=== PATIENT | male | born 1940 | race Caucasian/White ===

== ENCOUNTER 2022-09-17 09:33 | Outpatient (CLI) | payer MEDICARE, OTHER, SELFPAY ==
[2022-09-17 21:20] LABS: Alanine Aminotransferase 22 U/L (6-50); Albumin Level 4.1 g/dL (3.5-5.1); Alkaline Phosphatase 70 U/L (38-126); Anion Gap 7 mmol/L (8-16); Aspartate Amino Transferase 27 U/L (17-59); Bilirubin,Total 0.7 mg/dL (0.2-1.3); Blood Urea Nitrogen 34 mg/dL (9-20); Carbon Dioxide 31 mmol/L (22-30); Chloride 105 mmol/L (98-107); Cholesterol 178 mg/dL (0-200); Estimated Glomerular Filt Rate > 60; Glucose 88 mg/dL (65-110); HDL Direct 40 mg/dL; Potassium 4.9 mmol/L (3.4-5.0); Sodium 143 mmol/L (137-145); Triglycerides 87 mg/dL (<150)
[2022-09-17 21:30] LABS: LDL Cholesterol Direct 102 mg/dL
== END 2022-09-17 09:34 | disposition home or self-care (01) ==
LOC: ANHGOSHLAB 09:37
PROVIDERS: PCP Family Medicine; Visit Provider Family Medicine
DX: Z13.220 Encounter for screening for lipoid disorders (principal); I10 Essential (primary) hypertension; Z12.11 Encounter for screening for malignant neoplasm of colon
CPT/HCPCS: 36415; 80053; 80061

== ENCOUNTER 2022-09-25 09:46 | Outpatient (NON) | payer MEDICARE, OTHER, SELFPAY ==
[2022-09-25 19:45] LABS: IFOB Positive Control Positive; Immunochemical Fecal Occult Bl Negative (N)
== END 2022-09-25 09:47 | disposition home or self-care (01) ==
LOC: ANHGOSHLAB 09:49
PROVIDERS: PCP Family Medicine; Visit Provider Family Medicine
DX: Z12.11 Encounter for screening for malignant neoplasm of colon (principal)
CPT/HCPCS: 82274

== ENCOUNTER 2022-10-05 18:47 | Outpatient (NON) | payer MEDICARE, OTHER, SELFPAY | END 2022-10-05 18:48 | disposition home or self-care (01) | LOC: ANHLAB 18:48 | PROVIDERS: PCP Family Medicine; Visit Provider Family Medicine | DX: R30.0 Dysuria (principal) | CPT/HCPCS: 87086 ==

== ENCOUNTER 2022-10-07 19:35 | Inpatient (IN) | payer MEDICARE, OTHER, SELFPAY ==
[2022-10-07] VITALS (11 sets, daily range): BP systolic 106–144; BP diastolic 67–87; PULSE 75–126; RESP 14–31; TEMP 37.3–39.1; O2SAT 90–100
--- NOTE | ~2022-10-07 | CT_ITS ---
EXAMINATION: CTA chest PE abdomen pel DATE: 10/07/2022 21:44 INDICATION: Fall, elevated d-dimer, abd pain. TECHNIQUE: Computed tomography angiography (CTA) of the chest was performed with 100 mL Omnipaque-350 intravenous contrast timed to evaluate the pulmonary arteries, followed by portal venous phase imagi ng of the abdomen and pelvis. Coronal maximum intensity projection 3D-reconstructions were created by the technologist. The dose-length product (DLP) was 861.79 mGy-cm. Automated exposure control and it erative reconstruction technique were employed. COMPARISON: X-ray chest, same date. FINDINGS: CHEST: Lung parenchyma and airways: Severe emphysematous change. Pleura: Unremarkable. Thoracic inlet, axillae and chest wall: Unremarkable. Thoracic aorta: Calcified and noncalcified plaque at the aortic arch. Mediastinum: Normal. Heart and pericardium: Normal. Coronary artery calcifications: Mild. Thoracic bones: No acute osseous finding. Pulmonary arteries: Study quality: Degraded by significant motion, such that subsegmental and non-occ lusive segmental emboli could be missed. No occlusive segmental or central pulmonary emboli detected. ABDOMEN/PELVIS: Liver: Normal. Biliary/Gallbladder: Gallbladder is normal. No bile duct dilation. Pancreas: No mass or duct dilation. Spleen: Normal. Adrenals:No mass. Kidneys: Multiple bilateral simple cysts. Multiple subcentimeter bilateral renal hypodensities that a re too small to characterize but also likely represent cysts. No suspicious mass, stone, or hydroneph rosis. GI tract: Distal esophageal and gastric wall edema. No small or large bowel dilation. Normal appendix . Diverticulosis without diverticulitis. Mesentery/Peritoneum: No ascites, mass, or free air. Retroperitoneum: No mass. Atherosclerotic abdominal aortic and/or arterial calcifications. Pelvis: Massive prostatomegaly, with significant projection of prostate tissue into the bladder lumen . Marked bladder wall edema, with inflammatory changes of multiple diverticula near the bladder dome and mucosal hyperemia. 3.3 cm fusiform infrarenal abdominal aortic aneurysm. Soft Tissues: Small, uncomplicated appearing fat-containing umbilical and bilateral inguinal hernias. Abdominopelvic bones: No acute osseous finding. IMPRESSION: 1. Exam limited by motion artifact such that nonocclusive segmental and subsegmental atelectatic be m issed. No central embolus or occlusive segmental embolus detected. 2. Marked urinary bladder wall edema and inflammatory change, correlate with urinalysis. 3. Mild esophagitis/gastritis. 4. Otherwise, acute process detected in the chest, abdomen, or pelvis. 5. 3.3 cm fusiform infrarenal abdominal aneurysm, recommend screening with ultrasound of the aorta in 3 years. 6. Massive prostatomegaly. 7. Emphysematous change. Reviewed, dictated and finalized at location K. T SUPERVISOR IMPRESSION: 1. Exam limited by motion artifact such that nonocclusive segmental and subsegm ental atelectatic be missed. No central embolus or occlusive segmental embolus detected. 2. Marked urinary bladder wall edema and inflammatory change, correlate with ur inalysis. 3. Mild esophagitis/gastritis. 4. Otherwise, acute process detected in the chest, abdomen, or pelvis. 5. 3.3 cm fusiform infrarenal abdominal aneurysm, recommend screening with ultr asound of the aorta in 3 years. 6. Massive prostatomegaly. 7. Emphysematous change.
--- NOTE | ~2022-10-07 | CT_ITS ---
EXAMINATION: CT brain wo con DATE: 10/07/2022 21:40 INDICATION: fall . TECHNIQUE: Computed tomography (CT) of the head was performed without intravenous contrast. The mA wa s adjusted according to patient size. Iterative reconstruction technique was employed. The dose-lengt h product was 605.33 mGy-cm. COMPARISON: None. FINDINGS: No acute intracranial hemorrhage or extra-axial fluid collection. No hydrocephalus, mass, or herniation. No acute ischemic infarct. Unremarkable dural venous sinus attenuation. No acute osseous abnormality. The aerated spaces are clear. Moderate atrophy and mild chronic white matter change. Atherosclerotic intracranial calcification. Bi lateral lens replacements. IMPRESSION: No acute intracranial process. Reviewed, dictated and finalized at location K. R EXPERT
--- NOTE | ~2022-10-07 | XR_ITS ---
EXAMINATION: XR chest 1V portable Exam Date/Time: 10/07/2022 20:25 DIVIDEND CLERK HISTORY: ams. Comparison: None available. RESULT: Lines, tubes, and devices: None. Lungs and pleura: Senescent changes. Calcified pulmonary granulomas. Eventration of the right hemidi aphragm. Cardiomediastinal silhouette: Mild arch calcification. Other: No acute osseous or upper abdominal finding. Severe degenerative change in the right shoulder . IMPRESSION: No acute cardiopulmonary process. Reviewed, dictated and finalized at location K. DEND CLERK
--- NOTE | ~2022-10-07 | US_ITS ---
Duplex Sonography of the right extremity: Indication: Pain Findings: Sagittal and transverse B-mode images as well as color-flow imaging were performed on the r ight femoral and popliteal veins. B-mode examination was done without and with compression in the tr ansverse plane. There is good visualization of the common femoral, proximal profunda femoral, superf icial femoral, greater saphenous, and popliteal veins. Normal flow was seen on color-flow imaging. N ormal compressibility was demonstrated. Right posterior tibial and peroneal veins are also patent. Impression: No evidence of deep vein thrombosis involving the right lower extremity. Reviewed, dictated and finalized at location M. ATION OFFICER Impression: No evidence of deep vein thrombosis involving the right lower extremity.
--- NOTE | 2022-10-07 19:57 | ECG_ITS ---
Measurements Intervals [place] Rate: 104 P: 59 [place]: 155 QRS: -76 QRSD: 114 T: 22 QT: 319 QTc: 420 Interpretive Statements SINUS TACHYCARDIA MARKED LEFT AXIS DEVIATION [QRS AXIS < -30] INCOMPLETE RIGHT BUNDLE BRANCH BLOCK [90+ ms QRS DURATION, TERMINAL R IN V1/V2, 40+ ms S IN I/aVL/V4/V5/V6] ABNORMAL ECG NO PREVIOUS ECG AVAILABLE FOR COMPARISON Electronically Signed On 10-08-2022 10:07:53 DETECTIVE CAPTAIN by Lance Tovar M.D.
--- NOTE | 2022-10-07 20:11 | ED.GENADULT ---
HPI - General Adult General Chief complaint: Urogenital-Male Stated complaint: urinary problems Time Seen by Provider: 10/07/22 19:44 Source: family and RN notes reviewed History of Present Illness HPI narrative: Patient presents emergency department from home for UTI. Patient states he has not been feeling well for the past 1 week states he has been feeling generally weak and fatigued during that time he states that he had noted that he been having increased urination as well as pain with urination and had gone to see his PCP on Wednesday the he states that at that time the UA had been done in the office and he had been diagnosed with a urinary tract infection. He was started on Cipro which she has been taking states he has not been feeling any better. He denies any measured fevers or chills he denies any chest pain or shortness of breath denies any abdominal pain nausea vomiting does note pain in his right leg with pain in his right calf with swelling of the right leg he denies any known trauma or injury states that it has been painful to ambulate on the right leg but denies having any definitive weakness he does note falling at some point over the past several days but cannot give any more history to this Patient's family is present and assisted in giving history Related Data Allergies Allergy/AdvReac Type Severity Reaction Status Date / Time No Known Allergies Allergy Verified 10/07/22 19:53 Review of Systems Review of Systems: Gen.: Denies fevers or chills Eyes: Denies eye pain or visual change ENT: Denies congestion Respiratory: Denies shortness of breath or cough CV: Denies chest pain or palpitations GI: Denies abdominal pain nausea, emesis or diarrhea see HPI Musculoskeletal: Denies back pain reports right leg pain Neuro: Reports generalized weakness Skin: Denies rash Except as documented, all other systems reviewed and negative [facility] Past Medical History Medical History Immunization counseling Screening, lipid Family History Family History Sibling Hypertension Mother Family history of Alzheimer's disease Social History Social History Social History: Caffeine- coffee Smoking status: Never smoker Second hand tobacco smoke exposure: No Smoking end date: 08/16/04 Alcohol intake: former Substance use: never Substance use type: does not use Lack of Food: Never True Current Housing: I Have Housing Concerned About Future Housing: No Difficulty Paying Gas/Electric Bills: No Difficulty Paying for Meds: No Currently Unemployed: No Education: High School Diploma/GED Difficulty w/ Childcare or Family Care: No Exam Narrative: APPEARANCE: No acute distress, nontoxic, resting in bed EYES: EOMI, PERRL HEENT: Normocephalic, atraumatic, OMM RESPIRATORY: No respiratory distress Clear to auscultation bilaterally with no rhonchi wheezing or rales. CARDIOVASCULAR: Regular rate and rhythm without murmurs rubs or gallops. ABDOMINAL: Soft, nontender, nondistended, no rebound or guarding MUSCULOSKELETAl: Moves all extremities. No clubbing, cyanosis or edema. Right calf is tender to palpation and swollen there is no tenderness of the knee or ankle with full range of motion of both bilateral dorsalis pedis pulse 2+ neurovascular intact muscle strength 5 out of 5 in bilateral upper and lower extremities NEURO: Awake and alert x 3. Following commands, speech normal, no focal deficits cranial nerves II through XII grossly intact bilaterally SKIN:: Warm, dry. No rashes lesions or abrasions PSYCHIATRIC: Normal affect/mood, Course Course Emergency Course: Called and discussed with Dr. Bardales for hospitalist service presentation and work-up agrees with admission at this time we will switch patient to Rocephin Discussed with patient and f
[2022-10-07 20:31] LABS: Basophils Percent Auto 0.3 % (0.2-1.2); Eosinophils Percent Auto 0.1 % (0-4.4); Hematocrit 45.1 % (42.0-52.0); Hemoglobin 15.2 g/dL (14.0-18.0); Immature Granulocyte Absolute 0.09 K/mm3 (0.00-0.031); Immature Granulocyte Percent A 0.8 % (0-0.5); Lymphocytes Absolute Auto 1.02 K/mm3 (0.9-3.2); Mean Corpuscular HGB Conc 33.7 g/dl (32-36); Mean Corpuscular Volume 91.9 fl (80-100); Mean Platelet Volume 9.4 fl (7.4-10.4); Monocytes Absolute Auto 1.4 K/mm3 (0.1-0.6); Neutrophils Absolute Auto 8.8 K/mm3 (1.3-6.7); Neutrophils Percent Auto 77.8 % (45.5-73.1); Platelet Count Result 242 k/mm3 (150-375); Red Blood Count 4.91 M/mm3 (4.6-6.20); Red Cell Distribution Width 14.7 % (11.5-14.5); White Blood Count 11.3 K/mm3 (4.5-10.0)
[2022-10-07 20:44] LABS: Lipase 307 U/L (23-300)
[2022-10-07 20:44] LABS: INR 1.3; Prothrombin Time 15.7 Seconds (11.1-14.7)
[2022-10-07 20:45] LABS: Lactic Acid Reflex 1.4 mmol/L (0.7-2.0); Partial Thromboplastin Time 33.1 SECONDS (22.3-36.8)
[2022-10-07] MEDS: SODIUM CHLORIDE 0.9% IV 1,000 ML 999 ML IV CONT (20:49)
[2022-10-07 21:02] LABS: Alanine Aminotransferase 34 U/L (6-50); Albumin Level 4.3 g/dL (3.5-5.1); Alkaline Phosphatase 64 U/L (38-126); Anion Gap 7 mmol/L (8-16); Aspartate Amino Transferase 100 U/L (17-59); Bilirubin,Total 1.3 mg/dL (0.2-1.3); Blood Urea Nitrogen 35 mg/dL (9-20); Calcium 8.6 mg/dL (8.4-10.2); Carbon Dioxide 28 mmol/L (22-30); Chloride 103 mmol/L (98-107); Estimated CRCL calculation 45 ml/min; Estimated Glomerular Filt Rate > 60; Glucose 145 mg/dL (65-110); Magnesium 2.3 mg/dL (1.6-2.3); Potassium 4.3 mmol/L (3.4-5.0); Sodium 138 mmol/L (137-145)
[2022-10-07 21:04] LABS: Troponin I 0.023 ng/mL (0.000-0.034)
[2022-10-07 21:07] LABS: Influenza A QL RT-PCR Negative (Negative); Influenza B QL RT-PCR Negative (Negative); SARS-CoV-2 RNA PCR Negative
[2022-10-07 21:15] LABS: Creatine Kinase 3464 U/L (55-170)
[2022-10-07 22:08] LABS: Appearance Urine Slightly Cloudy (Clear); Bilirubin Urine Negative (Negative); Blood Urine 2+ (Negative); Color Urine Yellow (Yellow); Glucose Urine UA Negative (Negative); Ketones Urine Negative (Negative); Leukocyte Esterase Ur 1+ LEU/UL (Negative); Nitrate Urine Negative (Negative); Protein Urine 2+ mg/dL (Negative); Urobilinogen Urine 0.2 mg/dL (<2.0); pH Urine 5.5 (5.0-9.0)
[2022-10-07 22:16] LABS: Bacteria Urine Trace /hpf; Mucus Urine Rare /lpf; Squamous Epithelial Cell Urine Rare /hpf (Few); WBC Clumps Urine Present /HPF; WBC Urine >75 /hpf
[2022-10-07 22:18] LABS: Add Urine Microscopic? YES
--- NOTE | 2022-10-07 23:50 | PM.IMHP ---
H&P: HPI History of Present Illness Date/Time: 10/07/22 23:50 Chief Complaint: urinary frequency Narrative: this is an 82-year-old male with past medical history significant for hypertension, gout. Patient presented earlier to his primary care physician's office due to concerns and complaints of for dysuria with urgency pain or burning with urination, nocturia. Patient was given ciprofloxacin however returns today to the emergency room due to known relieve of symptoms is still having significant urinary urgency and frequency with nocturia generalized malaise, fevers, chills decreased oral intake. Preliminary workup was significant for CPK in the 3000 a urinalysis showed numerous WBCs present per high-power field. patient was ruled out for acute PE as well as acute DVT A CT of abdomen and pelvis was reported as: IMPRESSION: 1. Exam limited by motion artifact such that nonocclusive segmental and subsegmental atelectatic be missed. No central embolus or occlusive segmental embolus detected. 2. Marked urinary bladder wall edema and inflammatory change, correlate with urinalysis. 3. Mild esophagitis/gastritis. 4. Otherwise, acute process detected in the chest, abdomen, or pelvis. 5. 3.3 cm fusiform infrarenal abdominal aneurysm, recommend screening with ultrasound of the aorta in 3 years. 6. Massive prostatomegaly. 7. Emphysematous change. Review of Systems Review of Systems: generalized malaise, body aches and pains, chills, urgency, urinary frequency, nocturia. Constitutional: Constitutional: Reports chills, Reports fever(s) and Reports malaise Eyes: Eyes: Denies change in vision ENT: Denies dysphagia and Denies odynophagia Cardiovascular: Cardiovascular: Denies chest pain, Denies leg edema, Denies palpitations and Denies dyspnea Respiratory: Respiratory: Denies chest congestion, Denies cough, Denies excessive phlegm production and Denies dyspnea Gastrointestinal: Gastrointestinal: Reports abdominal pain ( Suprapubic tenderness), Denies dyspepsia, Denies heartburn, Denies diarrhea, Denies nausea and Denies vomiting Genitourinary: Genitourinary: Reports dysuria, Denies flank pain, Reports urinary frequency and Reports urinary urgency Musculoskeletal: Musculoskeletal: Denies back pain and Reports myalgias Integumentary/Breasts: Skin/Breast: Denies rash Neurologic: Denies focal weakness and Denies Sensory deficit (Neuro) Psychiatric: Psychiatric: Reports no additional psychiatric complaints and Reports as per HPI Endocrine: Endocrine: Denies cold intolerance, Denies flushing, Denies heat intolerance, Denies polyphagia, Denies polydipsia and Denies palpitations Hematologic/Lymphatic: Hematologic/Lymphatic: Reports no additional hematologic/lymphatic complaints and Reports as per HPI Allergic/Immunologic: Allergic/Immunologic: Reports no additional allergic/immunologic complaints and Reports as per HPI PMFSH Past Medical History Medical History Immunization counseling Screening, lipid Family History Family History Sibling Hypertension Mother Family history of Alzheimer's disease Social History Social History Social History: Caffeine- coffee Smoking status: Former smoker Second hand tobacco smoke exposure: No Smoking end date: 08/16/04 Alcohol intake: former Substance use: never Substance use type: does not use Lack of Transportation: No Lack of Food: Never True Current Housing: I Have Housing Concerned About Future Housing: No Difficulty Paying Gas/Electric Bills: No Difficulty Paying for Meds: No Currently Unemployed: No Education: High School Diploma/GED Difficulty w/ Childcare or Family Care: No Spiritual care concerns: Yes Meds Home Medications and Allergies Home Medications Medication Instructions
[2022-10-08] VITALS (10 sets, daily range): BP systolic 105–180; BP diastolic 76–83; PULSE 104–109; RESP 14–24; TEMP 36.1–38.8; O2SAT 93–100; BMI 26.1
--- NOTE | 2022-10-08 00:23 | PC.NURSE ---
Pt repositioned, linens changed, and new depends applied. Pt resting comfortably.
--- NOTE | 2022-10-08 01:10 | PC.NURSE ---
report received from [facility]
[2022-10-08] MEDS: SODIUM CHLORIDE 0.9% IV 1,000 ML 125 ML IV CONT ×3 (02:03→21:19)
[2022-10-08] MEDS: lisinopriL 20 MG TABLET PO ×2 (02:29→21:08)
[2022-10-08] MEDS: amLODIPine BESYLATE 5 MG TABLET PO ×3 (02:29→21:08)
[2022-10-08] MEDS: ACETAMINOPHEN 325 MG TABLET 650 MG PO ×2 (02:29→21:17)
--- NOTE | 2022-10-08 05:56 | PC.NURSE ---
called MD Jasso r/t pt bp 168/82
[2022-10-08 06:41] LABS: Basophils Percent Auto 0.3 % (0.2-1.2); Eosinophils Absolute Auto 0.1 K/mm3 (0-0.3); Eosinophils Percent Auto 0.4 % (0-4.4); Hematocrit 43.3 % (42.0-52.0); Hemoglobin 14.4 g/dL (14.0-18.0); Immature Granulocyte Absolute 0.08 K/mm3 (0.00-0.031); Immature Granulocyte Percent A 0.7 % (0-0.5); Lymphocytes Absolute Auto 1.74 K/mm3 (0.9-3.2); Lymphocytes Percent Auto 14.2 % (18.3-44.2); Mean Corpuscular HGB Conc 33.3 g/dl (32-36); Mean Corpuscular Volume 93.1 fl (80-100); Monocytes Absolute Auto 1.9 K/mm3 (0.1-0.6); Monocytes Percent Auto 15.6 % (2.6-8.5); Neutrophils Absolute Auto 8.4 K/mm3 (1.3-6.7); Neutrophils Percent Auto 68.8 % (45.5-73.1); Platelet Count Result 223 k/mm3 (150-375); Red Blood Count 4.65 M/mm3 (4.6-6.20); Red Cell Distribution Width 14.7 % (11.5-14.5); White Blood Count 12.2 K/mm3 (4.5-10.0)
[2022-10-08 06:58] LABS: Alanine Aminotransferase 34 U/L (6-50); Albumin Level 3.9 g/dL (3.5-5.1); Alkaline Phosphatase 56 U/L (38-126); Anion Gap 6 mmol/L (8-16); Aspartate Amino Transferase 92 U/L (17-59); Bilirubin,Total 1.6 mg/dL (0.2-1.3); Blood Urea Nitrogen 25 mg/dL (9-20); Carbon Dioxide 28 mmol/L (22-30); Chloride 102 mmol/L (98-107); Estimated CRCL calculation 50 ml/min; Estimated Glomerular Filt Rate > 60; Glucose 107 mg/dL (65-110); Potassium 3.8 mmol/L (3.4-5.0); Sodium 136 mmol/L (137-145)
[2022-10-08 07:08] LABS: Creatine Kinase 2344 U/L (55-170)
--- NOTE | 2022-10-08 08:04 | PM.IMPN ---
Progress Note: A&P Assessment and Plan (1) Acute UTI: Code(s): N39.0 - Urinary tract infection, site not specified Status: Acute Assessment and Plan: Continue Rocephin, follow up urine culture (2) Rhabdomyolysis: Code(s): M62.82 - Rhabdomyolysis Status: Acute Assessment and Plan: Resolving, trending down Continue IV fluids (3) Gout, unspecified: Qualifiers: Chronicity: chronic Gout etiology: idiopathic Gout site: toe Laterality: right Presence of tophus: without tophus Qualified Code(s): M1A.0710 - Idiopathic chronic gout, right ankle and foot, without tophus (tophi) Code(s): M10.9 - Gout, unspecified Status: Acute Assessment and Plan: Stable, continue allopurinol (4) Essential (primary) hypertension: Code(s): I10 - Essential (primary) hypertension Status: Acute Assessment and Plan: Blood pressures reviewed today, continue lisinopril and amlodipine (5) Hyperbilirubinemia: Code(s): E80.6 - Other disorders of bilirubin metabolism Status: Acute Assessment and Plan: Slightly worsened today, suspect this is secondary to rhabdomyolysis, monitor (6) Abdominal aneurysm: Code(s): I71.40 - Abdominal aortic aneurysm, without rupture, unspecified Status: Acute Assessment and Plan: 3.3 cm fusiform infrarenal abdominal aneurysm, recheck with ultrasound in 3 years (7) Gastritis: Code(s): K29.70 - Gastritis, unspecified, without bleeding Status: Acute Assessment and Plan: Esophagitis/gastritis seen on CT scan, start H2 ilana Monitor symptoms Plan DVT prophylaxis with Lovenox GI prophylaxis not indicated Code status full code Subjective Date/time seen: 10/08/22 08:04 Interval history: No overnight events noted. No chest pain or shortness of breath. No nausea, vomiting or diarrhea. No fevers or chills. Denies dysuria and suprapubic tenderness at this time. Review of Systems Review of Systems: 12 point review of systems was assessed and was negative except as noted in the HPI Exam Narrative: General: No acute distress, alert and oriented per baseline HEENT: Atraumatic, normocephalic, mucous membranes moist CV: Regular rate and rhythm, S1, S2 Lungs: Clear to auscultation bilaterally, no rales or crackles noted, no wheezes, good air entry Abdomen: Soft, nontender, nondistended Extremities: Normal to inspection Skin: No rashes noted, no lesions or wounds seen Psych: Euthymic, normal affect Objective Data Vital Signs Vital Signs: Vital Signs - 24 hr 10/07/22 19:39 10/07/22 19:48 10/07/22 19:55 Temperature 102.3 F H 99.1 F Pulse Rate 110 H 106 H 107 H Respiratory Rate 20 26 H 22 H Blood Pressure 144/67 H 142/83 H Pulse Oximetry 100 100 90 Oxygen Delivery Room Air 10/07/22 20:00 10/07/22 20:01 10/07/22 20:15 Temperature Pulse Rate 104 H 104 H 102 H Respiratory Rate 22 H 25 H 26 H Blood Pressure 133/87 Pulse Oximetry 96 98 Oxygen Delivery 10/07/22 20:18 10/07/22 20:35 10/07/22 21:00 Temperature Pulse Rate 103 H 126 H 105 H Respiratory Rate 17 31 H 24 H Blood Pressure 128/85 114/86 134/83 Pulse Oximetry 97 98 Oxygen Delivery 10/07/22 22:00 10/07/22 23:00 10/08/22 00:00 Temperature Pulse Rate 75 106 H 109 H Respiratory Rate 14 14 14 Blood Pressure 119/83 106/70 105/83 Pulse Oximetry 95 97 93 Oxygen Delivery 10/08/22 01:10 10/08/22 01:57 10/08/22 01:44 Temperature 99.0 F Pulse Rate 109 H 109 H Respiratory Rate 14 18 Blood Pressure 125/79 136/78 Pulse Oximetry 100 95 Oxygen Delivery Room Air 10/08/22 02:29 10/08/22 03:40 10/08/22 06:02 Temperature 99.0 F 98.1 F 97.0 F L Pulse Rate 104 H Respiratory Rate 18 Blood Pressure 168/82 H Pulse Oximetry 96 Oxygen Delivery 10/08/22 06:02 10/08/22 06:06 Temperature 97.0 F L 97.0 F L Pu
[2022-10-08] MEDS: ENOXAPARIN 40 MG/0.4 ML SYRINGE SUB-Q (09:03)
[2022-10-08] MEDS: FAMOTIDINE 20 MG TABLET PO (21:08)
[2022-10-08] MEDS: allopurinoL 300 MG TABLET PO (21:08)
[2022-10-09 05:42] VITALS: BP 142/83; PULSE 99; RESP 20; TEMP 36.9; O2SAT 94
[2022-10-09] MEDS: SODIUM CHLORIDE 0.9% IV 1,000 ML 125 ML IV CONT ×3 (05:48→21:13)
[2022-10-09 06:12] LABS: Basophils Absolute Auto 0.1 K/mm3 (0.0-0.1); Basophils Percent Auto 0.5 % (0.2-1.2); Eosinophils Absolute Auto 0.1 K/mm3 (0-0.3); Hematocrit 33.2 % (42.0-52.0); Immature Granulocyte Absolute 0.06 K/mm3 (0.00-0.031); Immature Granulocyte Percent A 0.7 % (0-0.5); Lymphocytes Absolute Auto 1.21 K/mm3 (0.9-3.2); Lymphocytes Percent Auto 13.2 % (18.3-44.2); Mean Corpuscular HGB Conc 33.1 g/dl (32-36); Mean Corpuscular Hemoglobin 31.3 pg (26-34); Mean Corpuscular Volume 94.3 fl (80-100); Mean Platelet Volume 9.2 fl (7.4-10.4); Monocytes Absolute Auto 1.2 K/mm3 (0.1-0.6); Neutrophils Absolute Auto 6.6 K/mm3 (1.3-6.7); Neutrophils Percent Auto 71.6 % (45.5-73.1); Platelet Count Result 186 k/mm3 (150-375); Red Blood Count 3.52 M/mm3 (4.6-6.20); Red Cell Distribution Width 14.6 % (11.5-14.5); White Blood Count 9.2 K/mm3 (4.5-10.0)
[2022-10-09 06:26] LABS: Alanine Aminotransferase 26 U/L (6-50); Albumin Level 2.1 g/dL (3.5-5.1); Alkaline Phosphatase 33 U/L (38-126); Anion Gap 3 mmol/L (8-16); Aspartate Amino Transferase 56 U/L (17-59); Bilirubin,Total 1.1 mg/dL (0.2-1.3); Blood Urea Nitrogen 16 mg/dL (9-20); Calcium 5.1 mg/dL (8.4-10.2); Carbon Dioxide 19 mmol/L (22-30); Chloride 118 mmol/L (98-107); Estimated CRCL calculation 93 ml/min; Estimated Glomerular Filt Rate > 60; Glucose 74 mg/dL (65-110); Potassium 2.6 mmol/L (3.4-5.0); Sodium 140 mmol/L (137-145)
[2022-10-09] MEDS: FAMOTIDINE 20 MG TABLET PO ×2 (09:39→21:08)
[2022-10-09] MEDS: ENOXAPARIN 40 MG/0.4 ML SYRINGE SUB-Q (09:39)
[2022-10-09] MEDS: POTASSIUM CHLORIDE 20 MEQ TABLET 40 MEQ PO (09:40)
--- NOTE | 2022-10-09 10:17 | PM.IMPN ---
Progress Note: A&P Assessment and Plan (1) Acute UTI: Code(s): N39.0 - Urinary tract infection, site not specified Status: Acute Assessment and Plan: Urine culture negative, but leuk resolved on abx and patient had fevers/chills/malaise now resolved, cystitis noted on CT scan, no other source of infection noted, prostatitis? Appreciate urology consultation, they are concerned for possible prostatitis, recommending 6-8 weeks of oral Cipro or doxy, due to aneurysm, will choose doxycycline, also recommending PVRs and placing a Rodriguez if greater than 300 mL, started on tamsulosin and finasteride as well Update: PVRs consistently greater than 300 ml, rodriguez placed (2) Rhabdomyolysis: Code(s): M62.82 - Rhabdomyolysis Status: Acute Assessment and Plan: Resolving, trending down, repeat CK pending today Continue IV fluids (3) Gout, unspecified: Qualifiers: Chronicity: chronic Gout etiology: idiopathic Gout site: toe Laterality: right Presence of tophus: without tophus Qualified Code(s): M1A.0710 - Idiopathic chronic gout, right ankle and foot, without tophus (tophi) Code(s): M10.9 - Gout, unspecified Status: Acute Assessment and Plan: Appears worsened yesterday, given colchicine x 2, reassess symptoms of right knee gout flare 10/10: much improved, still with swelling and redness, will give colchicine 0.6 mg one more time (4) Essential (primary) hypertension: Code(s): I10 - Essential (primary) hypertension Status: Acute Assessment and Plan: Blood pressures reviewed today 10/10, continue lisinopril and amlodipine (5) Hyperbilirubinemia: Code(s): E80.6 - Other disorders of bilirubin metabolism Status: Acute Assessment and Plan: Slightly worsened today, suspect this is secondary to rhabdomyolysis, monitor 10/09: Resolved (6) Abdominal aneurysm: Code(s): I71.40 - Abdominal aortic aneurysm, without rupture, unspecified Status: Acute Assessment and Plan: 3.3 cm fusiform infrarenal abdominal aneurysm, recheck with ultrasound in 3 years (7) Gastritis: Code(s): K29.70 - Gastritis, unspecified, without bleeding Status: Acute Assessment and Plan: Esophagitis/gastritis seen on CT scan, start H2 ilana Monitor symptoms Plan DVT prophylaxis with Lovenox GI prophylaxis not indicated Code status full code Subjective Date/time seen: 10/09/22 10:17 Interval history: No overnight events noted. No chest pain or shortness of breath. No nausea, vomiting or diarrhea. No fevers or chills. Rodriguez in place, draining well. Review of Systems Review of Systems: 12 point review of systems was assessed and was negative except as noted in the HPI Exam Narrative: General: No acute distress, alert and oriented per baseline HEENT: Atraumatic, normocephalic, mucous membranes moist CV: Regular rate and rhythm, S1, S2 Lungs: Clear to auscultation bilaterally, no rales or crackles noted, no wheezes, good air entry Abdomen: Soft, nontender, nondistended Extremities: Normal to inspection Skin: No rashes noted, no lesions or wounds seen Psych: Euthymic, normal affect : rodriguez in place, draining dark yellow urine Objective Data Vital Signs Vital Signs: Vital Signs - 24 hr 10/08/22 14:00 10/08/22 21:17 10/08/22 22:00 Temperature 99.7 F H 101.2 F H 101.9 F H Pulse Rate 108 H 106 H Respiratory Rate 24 H 20 Blood Pressure 180/76 H 154/76 H Pulse Oximetry 95 96 Oxygen Delivery 10/09/22 05:42 10/09/22 09:30 Temperature 98.5 F Pulse Rate 99 Respiratory Rate 20 Blood Pressure 142/83 H Pulse Oximetry 94 Oxygen Delivery Room Air Intake/Output Intake/Output: Intake & Output 10/06/22 10/07/22 10/08/22 10/09/22 23:59 23:59 23:59 23:59 Intake Total 1000 2870 1556 Output Total 425 650 Balance 1000 0096 636 Meds/Results
[2022-10-09 10:38] LABS: Lipase 83 U/L (23-300)
[2022-10-09 10:45] LABS: Creatine Kinase 1181 U/L (55-170)
[2022-10-09 10:49] LABS: Basophils Absolute Auto 0.1 K/mm3 (0.0-0.1); Basophils Percent Auto 0.5 % (0.2-1.2); Eosinophils Absolute Auto 0.1 K/mm3 (0-0.3); Eosinophils Percent Auto 1.1 % (0-4.4); Hematocrit 39.9 % (42.0-52.0); Hemoglobin 13.2 g/dL (14.0-18.0); Immature Granulocyte Absolute 0.07 K/mm3 (0.00-0.031); Immature Granulocyte Percent A 0.7 % (0-0.5); Lymphocytes Absolute Auto 1.23 K/mm3 (0.9-3.2); Mean Corpuscular HGB Conc 33.1 g/dl (32-36); Mean Corpuscular Hemoglobin 30.8 pg (26-34); Mean Platelet Volume 8.5 fl (7.4-10.4); Monocytes Absolute Auto 1.2 K/mm3 (0.1-0.6); Monocytes Percent Auto 11.9 % (2.6-8.5); Neutrophils Absolute Auto 7.6 K/mm3 (1.3-6.7); Neutrophils Percent Auto 73.8 % (45.5-73.1); Platelet Count Result 206 k/mm3 (150-375); Red Blood Count 4.29 M/mm3 (4.6-6.20); Red Cell Distribution Width 14.9 % (11.5-14.5); White Blood Count 10.3 K/mm3 (4.5-10.0)
[2022-10-09 11:02] LABS: Alanine Aminotransferase 36 U/L (6-50); Albumin Level 3.2 g/dL (3.5-5.1); Alkaline Phosphatase 50 U/L (38-126); Anion Gap 2 mmol/L (8-16); Aspartate Amino Transferase 76 U/L (17-59); Bilirubin,Total 1.5 mg/dL (0.2-1.3); Blood Urea Nitrogen 20 mg/dL (9-20); Calcium 7.6 mg/dL (8.4-10.2); Carbon Dioxide 29 mmol/L (22-30); Chloride 108 mmol/L (98-107); Estimated CRCL calculation 61 ml/min; Estimated Glomerular Filt Rate > 60; Glucose 127 mg/dL (65-110); Potassium 3.9 mmol/L (3.4-5.0); Sodium 139 mmol/L (137-145)
[2022-10-09 14:00] VITALS: BP 139/72; PULSE 98; RESP 18; TEMP 37; O2SAT 97
[2022-10-09] MEDS: ACETAMINOPHEN 325 MG TABLET 650 MG PO ×2 (14:05→21:13)
--- NOTE | 2022-10-09 15:35 | WPDURCON ---
Assessment and Plan Assessment and plan (1) Prostatitis: Code(s): N41.9 - Inflammatory disease of prostate, unspecified Status: Acute Assessment and Plan: urine culture negative The patient exhibits symptoms of a UTI but has a severely enlarged prostate and a negative urine culture. He was on Cipro x 2 days prior to being admitted from the ER. I advised him that prostatitis can take 6-8 weeks of antibiotics to resolve. (2) BPH (benign prostatic hyperplasia): Code(s): N40.0 - Benign prostatic hyperplasia without lower urinary tract symptoms Status: Acute Assessment and Plan: Start Tamsulosin and Finasteride. Bladder scan post void to ensure proper emptying. If PVR >300cc, place 16fr coude catheter. The patient should f/u in the office in 3-4 weeks and continue oral Ciprofloxacin or Doxycycline for 21 days s/p discharge. Urology Consult Note HPI Date Seen: 10/09/22 Time Seen: 12:30 Requesting Physician: Padmini Jasso MD Primary Care Provider: Sujit Miranda DO Consult Narrative Reason for consult: BPH, Prostatitis Narrative: Sachin Mast is a 82 year old male who presented to the ER on 10/07/22 with worsening UTI symptoms despite treatment for a UTI from PCP with Cipro on 10/05/22. He states that after 2 days of Ciprofloxacin he was worsening with symptoms of frequency, urgency, dysuria, weakness and fatigue. His Urine culture from arrival in the ER was negative on 10/07/22. CT scan this visit shows bladder wall edema and massively enlarged prostate. He has never been treated for BPH or had a UTI/prostatitis. Creatinine 0.80, WBC 10.3 and he is afebrile. Review of Systems Constitutional: Constitutional: Reports fatigue and Reports lethargy Cardiovascular: Cardiovascular: Denies chest pain Respiratory: Respiratory: Reports no additional respiratory complaints Genitourinary: Genitourinary: Denies hematuria, Reports dysuria, Denies flank pain, Reports urinary frequency and Reports urinary urgency PMFSH Past Medical History Medical History Abdominal aneurysm Immunization counseling Screening, lipid Family History Family History Sibling Hypertension Mother Family history of Alzheimer's disease Social History Social History Social History: Caffeine- coffee Smoking status: Former smoker Second hand tobacco smoke exposure: No Smoking end date: 08/16/04 Alcohol intake: former Substance use: never Substance use type: does not use Lack of Transportation: No Lack of Food: Never True Current Housing: I Have Housing Concerned About Future Housing: No Difficulty Paying Gas/Electric Bills: No Difficulty Paying for Meds: No Currently Unemployed: No Education: High School Diploma/GED Difficulty w/ Childcare or Family Care: No Spiritual care concerns: Yes Meds Home Medications and Allergies Home Medications Medication Instructions Recorded Confirmed Type ciprofloxacin HCl 500 mg tablet 500 mg PO Q12H #14 tabs 10/05/22 10/08/22 Rx allopurinol 300 mg tablet 300 mg PO HS 10/08/22 10/08/22 History amlodipine 5 mg tablet 5 mg PO HS 10/08/22 10/08/22 History lisinopril 20 mg tablet 20 mg PO HS 10/08/22 10/08/22 History Allergies Allergy/AdvReac Type Severity Reaction Status Date / Time No Known Allergies Allergy Verified 10/07/22 19:53 Vital Signs Vital Signs - 24 hr 10/08/22 21:17 10/08/22 22:00 10/09/22 05:42 Temperature 101.2 F H 101.9 F H 98.5 F Pulse Rate 106 H 99 Respiratory Rate 20 20 Blood Pressure 154/76 H 142/83 H Pulse Oximetry 96 94 Oxygen Delivery 10/09/22 09:30 10/09/22 14:00 Temperature 98.6 F Pulse Rate 98 Respiratory Rate 18 Blood Pressure 139/72 Pulse Oximetry 97 Oxygen Delivery Room Air Exam
[2022-10-09] MEDS: COLCHICINE 0.6 MG TABLET 1.2 MG PO (18:41)
[2022-10-09] MEDS: COLCHICINE 0.6 MG TABLET PO (21:08)
[2022-10-09] MEDS: allopurinoL 300 MG TABLET PO (21:08)
[2022-10-09] MEDS: amLODIPine BESYLATE 5 MG TABLET PO (21:08)
[2022-10-09] MEDS: lisinopriL 20 MG TABLET PO (21:09)
[2022-10-09 21:55] VITALS: BP 140/82; PULSE 96; RESP 18; TEMP 37.4; O2SAT 96
[2022-10-10] MEDS: SODIUM CHLORIDE 0.9% IV 1,000 ML 125 ML IV CONT ×3 (05:18→20:32)
[2022-10-10 06:00] VITALS: BP 129/72; PULSE 102; RESP 16; TEMP 36.9; O2SAT 95
[2022-10-10 07:23] LABS: Basophils Absolute Auto 0.1 K/mm3 (0.0-0.1); Basophils Percent Auto 0.5 % (0.2-1.2); Eosinophils Absolute Auto 0.2 K/mm3 (0-0.3); Eosinophils Percent Auto 2.2 % (0-4.4); Hematocrit 40.1 % (42.0-52.0); Hemoglobin 13.1 g/dL (14.0-18.0); Immature Granulocyte Absolute 0.09 K/mm3 (0.00-0.031); Immature Granulocyte Percent A 0.8 % (0-0.5); Lymphocytes Absolute Auto 1.27 K/mm3 (0.9-3.2); Lymphocytes Percent Auto 11.5 % (18.3-44.2); Mean Corpuscular HGB Conc 32.7 g/dl (32-36); Mean Corpuscular Hemoglobin 30.5 pg (26-34); Mean Corpuscular Volume 93.5 fl (80-100); Mean Platelet Volume 9.2 fl (7.4-10.4); Monocytes Absolute Auto 1.1 K/mm3 (0.1-0.6); Monocytes Percent Auto 10.3 % (2.6-8.5); Neutrophils Absolute Auto 8.2 K/mm3 (1.3-6.7); Neutrophils Percent Auto 74.7 % (45.5-73.1); Platelet Count Result 232 k/mm3 (150-375); Red Blood Count 4.29 M/mm3 (4.6-6.20); Red Cell Distribution Width 14.9 % (11.5-14.5)
[2022-10-10 07:46] LABS: Alanine Aminotransferase 39 U/L (6-50); Albumin Level 3.2 g/dL (3.5-5.1); Alkaline Phosphatase 56 U/L (38-126); Anion Gap 4 mmol/L (8-16); Aspartate Amino Transferase 57 U/L (17-59); Bilirubin,Total 1.1 mg/dL (0.2-1.3); Blood Urea Nitrogen 14 mg/dL (9-20); Calcium 7.5 mg/dL (8.4-10.2); Carbon Dioxide 28 mmol/L (22-30); Chloride 108 mmol/L (98-107); Estimated CRCL calculation 61 ml/min; Estimated Glomerular Filt Rate > 60; Glucose 100 mg/dL (65-110); Potassium 3.9 mmol/L (3.4-5.0); Sodium 140 mmol/L (137-145)
[2022-10-10] MEDS: FINASTERIDE 5 MG TABLET PO (08:03)
[2022-10-10] MEDS: FAMOTIDINE 20 MG TABLET PO ×2 (08:03→20:31)
[2022-10-10] MEDS: ENOXAPARIN 40 MG/0.4 ML SYRINGE SUB-Q (08:03)
[2022-10-10] MEDS: TAMSULOSIN HCL 0.4 MG CAPSULE PO (08:03)
--- NOTE | 2022-10-10 11:33 | PM.DS ---
DS: Admitting Diagnosis Discharge Date 10/11/2022 Admitting Diagnosis Dysuria DS: Discharge Diagnosis Discharge Diagnosis (1) Acute UTI: Code(s): N39.0 - Urinary tract infection, site not specified Status: Acute Assessment and Plan: Urine culture negative, but leuk resolved on abx and patient had fevers/chills/malaise now resolved, cystitis noted on CT scan, no other source of infection noted, prostatitis? Appreciate urology consultation, they are concerned for possible prostatitis, recommending 6-8 weeks of oral Cipro or doxy, due to aneurysm, will choose doxycycline, also recommending PVRs and placing a Rodriguez if greater than 300 mL, started on tamsulosin and finasteride as well Update: PVRs consistently greater than 300 ml, rodriguez placed (2) Rhabdomyolysis: Code(s): M62.82 - Rhabdomyolysis Status: Acute Assessment and Plan: Resolving, trending down, repeat CK pending today Continue IV fluids (3) Gout, unspecified: Qualifiers: Gout site: toe Gout etiology: idiopathic Chronicity: chronic Laterality: right Presence of tophus: without tophus Qualified Code(s): M1A.0710 - Idiopathic chronic gout, right ankle and foot, without tophus (tophi) Code(s): M10.9 - Gout, unspecified Status: Acute Assessment and Plan: Appears worsened yesterday, given colchicine x 2, reassess symptoms of right knee gout flare 10/10: much improved, still with swelling and redness, will give colchicine 0.6 mg one more time (4) Essential (primary) hypertension: Code(s): I10 - Essential (primary) hypertension Status: Acute Assessment and Plan: Blood pressures reviewed today 10/10, continue lisinopril and amlodipine (5) Hyperbilirubinemia: Code(s): E80.6 - Other disorders of bilirubin metabolism Status: Acute Assessment and Plan: Slightly worsened today, suspect this is secondary to rhabdomyolysis, monitor 10/09: Resolved (6) Abdominal aneurysm: Code(s): I71.40 - Abdominal aortic aneurysm, without rupture, unspecified Status: Acute Assessment and Plan: 3.3 cm fusiform infrarenal abdominal aneurysm, recheck with ultrasound in 3 years (7) Gastritis: Code(s): K29.70 - Gastritis, unspecified, without bleeding Status: Acute Assessment and Plan: Esophagitis/gastritis seen on CT scan, start H2 ilana Monitor symptoms Plan DVT prophylaxis with Lovenox GI prophylaxis not indicated Code status full code DS: Summary Hospital Course Hospital Course: 82-year-old male with past medical history significant for hypertension and gout is presenting with dysuria. He was admitted is started antibiotics. Urine culture came back negative, however, he was thought to have prostatitis as his symptoms resolved with antibiotics and he was noted to have significant urinary retention. Urology was consulted and recommend placing a Rodriguez. The Rodriguez was to be maintained at discharge and he will have a 21 day course of antibiotics with doxycycline and close outpatient follow-up by Urology and primary care. See above for details. Time Spent with Patient Time attestation: Total time spent providing and/or coordinating discharge services: Exam Narrative: General: No acute distress, alert and oriented per baseline HEENT: Atraumatic, normocephalic, mucous membranes moist CV: Regular rate and rhythm, S1, S2 Lungs: Clear to auscultation bilaterally, no rales or crackles noted, no wheezes, good air entry Abdomen: Soft, nontender, nondistended Extremities: Normal to inspection Skin: No rashes noted, no lesions or wounds seen Psych: Euthymic, normal affect : rodriguez in place, draining dark yellow urine DS: Data Data Completed and Pending Labs on day of discharge: Labs from last 24 hours 10/10/22 10/10/22 06:40 06:40 WBC 11.0 H RBC 4.29 L Hgb 13.1 L Hct 40.1 L MCV 93
[2022-10-10 12:01] LABS: Creatine Kinase 835 U/L (55-170)
[2022-10-10] MEDS: DOXYCYCLINE HYCLATE 100 MG TABLET PO ×2 (13:26→20:31)
[2022-10-10 14:00] VITALS: BP 139/77; PULSE 67; RESP 24; TEMP 36.9; O2SAT 96
[2022-10-10] MEDS: COLCHICINE 0.6 MG TABLET PO (18:47)
[2022-10-10] MEDS: allopurinoL 300 MG TABLET PO (20:31)
[2022-10-10] MEDS: lisinopriL 20 MG TABLET PO (20:31)
[2022-10-10] MEDS: amLODIPine BESYLATE 5 MG TABLET PO (20:31)
[2022-10-10 22:00] VITALS: BP 125/77; PULSE 93; RESP 20; TEMP 37.3; O2SAT 95
[2022-10-11] MEDS: SODIUM CHLORIDE 0.9% IV 1,000 ML 125 ML IV CONT (04:54)
[2022-10-11 06:00] VITALS: BP 120/65; PULSE 91; RESP 20; TEMP 36.9; O2SAT 95
[2022-10-11 07:41] LABS: Basophils Absolute Auto 0.1 K/mm3 (0.0-0.1); Basophils Percent Auto 0.5 % (0.2-1.2); Eosinophils Absolute Auto 0.3 K/mm3 (0-0.3); Eosinophils Percent Auto 3.4 % (0-4.4); Hemoglobin 12.2 g/dL (14.0-18.0); Immature Granulocyte Absolute 0.06 K/mm3 (0.00-0.031); Immature Granulocyte Percent A 0.7 % (0-0.5); Lymphocytes Absolute Auto 1.33 K/mm3 (0.9-3.2); Lymphocytes Percent Auto 14.5 % (18.3-44.2); Mean Corpuscular Hemoglobin 30.7 pg (26-34); Mean Corpuscular Volume 93.2 fl (80-100); Monocytes Absolute Auto 0.9 K/mm3 (0.1-0.6); Monocytes Percent Auto 9.7 % (2.6-8.5); Neutrophils Absolute Auto 6.6 K/mm3 (1.3-6.7); Neutrophils Percent Auto 71.2 % (45.5-73.1); Platelet Count Result 218 k/mm3 (150-375); Red Blood Count 3.97 M/mm3 (4.6-6.20); Red Cell Distribution Width 14.4 % (11.5-14.5); White Blood Count 9.2 K/mm3 (4.5-10.0)
[2022-10-11 07:56] LABS: Alanine Aminotransferase 34 U/L (6-50); Albumin Level 2.9 g/dL (3.5-5.1); Alkaline Phosphatase 50 U/L (38-126); Anion Gap 0 mmol/L (8-16); Aspartate Amino Transferase 40 U/L (17-59); Blood Urea Nitrogen 12 mg/dL (9-20); Calcium 7.5 mg/dL (8.4-10.2); Carbon Dioxide 27 mmol/L (22-30); Chloride 106 mmol/L (98-107); Creatine Kinase 385 U/L (55-170); Estimated CRCL calculation 69 ml/min; Estimated Glomerular Filt Rate > 60; Glucose 95 mg/dL (65-110); Potassium 3.4 mmol/L (3.4-5.0); Sodium 133 mmol/L (137-145)
[2022-10-11] MEDS: FINASTERIDE 5 MG TABLET PO (08:04)
[2022-10-11] MEDS: TAMSULOSIN HCL 0.4 MG CAPSULE PO (08:04)
[2022-10-11] MEDS: ACETAMINOPHEN 325 MG TABLET 650 MG PO (08:04)
[2022-10-11] MEDS: FAMOTIDINE 20 MG TABLET PO (08:04)
[2022-10-11] MEDS: DOXYCYCLINE HYCLATE 100 MG TABLET PO (08:04)
[2022-10-11] MEDS: ENOXAPARIN 40 MG/0.4 ML SYRINGE SUB-Q (08:05)
--- NOTE | 2022-10-11 13:31 | WPDUROPN2 ---
Subjective Subjective Date/Time Seen: 10/11/22 13:31- was called ot see patient for urinary frequency and urgency, patient has a rodriguez in at time of my visit. he was seen on 10/09/22 by our service, has prostatitis on treatment. please see note from 10/09/22 for full urologic recommendations, no new recommendations regarding these symptoms given rodriguez is now in with plan to stay for several weeks that can be reassesed as outpatient Objective Data Vital Signs Vital Signs: Vital Signs - 24 hr 10/10/22 14:00 10/10/22 22:00 10/11/22 06:00 Temperature 36.9 C 37.3 C 36.9 C Pulse Rate 67 93 91 Respiratory Rate 24 H 20 20 Blood Pressure 139/77 125/77 120/65 Pulse Oximetry 96 95 95 Oxygen Delivery 10/11/22 10:02 10/11/22 08:00 10/11/22 11:33 Temperature Pulse Rate Respiratory Rate Blood Pressure Pulse Oximetry Oxygen Delivery Room Air Room Air Room Air Intake/Output Intake/Output: Intake & Output 10/08/22 10/09/22 10/10/22 10/11/22 23:59 23:59 23:59 23:59 Intake Total 2870 4296 5316 1680 Output Total 311 479 5302 1300 Balance 2441 3335 9311 380 Meds/Results Medications: Active Medications Generic Name Dose Route Start Last Admin Trade Name Freq PRN Reason Stop Dose Admin Acetaminophen 650 mg 10/08/22 02:10 10/11/22 08:04 Acetaminophen 325 Mg Tablet PO 650 mg Q6H PRN Administration Mild Pain (1-3) or Fever Allopurinol 300 mg 10/08/22 21:00 10/10/22 20:31 Allopurinol 300 Mg Tablet PO 300 mg HS PETEY Administration Amlodipine Besylate 5 mg 10/08/22 02:10 10/10/22 20:31 Amlodipine Besylate 5 Mg Tablet PO 5 mg HS PETEY Administration Doxycycline Hyclate 100 mg 10/10/22 11:20 10/11/22 08:04 Doxycycline Hyclate 100 Mg Tablet PO 100 mg Q12HR PETEY Administration Enoxaparin Sodium 40 mg 10/08/22 09:00 10/11/22 08:05 Enoxaparin 40 Mg/0.4 Ml Syringe SUB-Q 40 mg DAILY PETEY Administration Famotidine 20 mg 10/08/22 21:00 10/11/22 08:04 Famotidine 20 Mg Tablet PO 20 mg Q12HR PETEY Administration Finasteride 5 mg 10/10/22 09:00 10/11/22 08:04 Finasteride 5 Mg Tablet PO 5 mg QAM PETEY Administration Sodium Chloride 1,000 mls @ 125 mls/hr 10/07/22 23:45 10/11/22 04:54 Normal Saline Iv IV CONT 125 mls/hr .Q8H PETEY Administration Lisinopril 20 mg 10/08/22 02:10 10/10/22 20:31 Lisinopril 20 Mg Tablet PO 20 mg HS PETEY Administration Tamsulosin HCl 0.4 mg 10/10/22 09:00 10/11/22 08:04 Tamsulosin Hcl 0.4 Mg Capsule PO 0.4 mg QAM PETEY Administration Radiology Results: ITS Impressions Chest X-Ray 10/07/22 21:19 IMPRESSION: No acute cardiopulmonary process. Head CT 10/07/22 21:51 IMPRESSION: No acute intracranial process. Chest/Abdomen/Pelvis CTA 10/07/22 23:06 IMPRESSION: 1. Exam limited by motion artifact such that nonocclusive segmental and subsegmental atelectatic be missed. No central embolus or occlusive segmental embolus detected. 2. Marked urinary bladder wall edema and inflammatory change, correlate with urinalysis. 3. Mild esophagitis/gastritis. 4. Otherwise, acute process detected in the chest, abdomen, or pelvis. 5. 3.3 cm fusiform infrarenal abdominal aneurysm, recommend screening with ultrasound of the aorta in 3 years. 6. Massive prostatomegaly. 7. Emphysematous change. Venous Doppler Study 10/08/22 06:15 Impression: No evidence of deep vein thrombosis involving the right lower extremity. Labs Labs: Laboratory Results - last 24 hr 10/11/22 10/11/22 07:14 07:14 WBC 9.2 RBC 3.97 L Hgb 12.2 L Hct 37.0 L MCV 93.2 MCH 30.7 MCHC 33.0 RDW 14.4 Plt Count 218 MPV 9.0 Immature Gran % (Auto) 0.7 H Neut % (Auto) 71.2 Lymph % (Auto) 14.5 L Pitkin % (Auto) 9.7 H Eos % (Auto) 3.4 Baso % (Auto) 0.5 Lymph # (Auto) 1.33 [place]kin # (Auto) 0.9 H Eos # (Auto) 0.3 Baso # (Auto) 0.1 Abs Immat Gran (
[2022-10-11 14:00] VITALS: BP 122/74; PULSE 92; RESP 26; TEMP 36.5; O2SAT 92
== END 2022-10-11 19:05 | disposition home or self-care (01) | DRG 728 ==
LOC: ANHED 20:35 → ANH3MEDSUR 10-08 01:06
PROVIDERS: Admitting Provider Internal Medicine; Emergency Provider Emergency Medicine; PCP Family Medicine; Visit Provider Student in an Organized Health Care Education/Training Program
DX: N41.9 Inflammatory disease of prostate, unspecified (principal); M62.82 Rhabdomyolysis; N40.1 Benign prostatic hyperplasia with lower urinary tract symptoms; R33.8 Other retention of urine; R35.0 Frequency of micturition; R39.15 Urgency of urination; Z20.822 Contact with and (suspected) exposure to COVID-19; M10.9 Gout, unspecified; I10 Essential (primary) hypertension; E80.6 Other disorders of bilirubin metabolism; I71.40 Abdominal aortic aneurysm, without rupture, unspecified; K29.70 Gastritis, unspecified, without bleeding
CPT/HCPCS: 36415; 70450; 71045; 71275; 74177; 80053; 81001; 82550; 83605; 83690; 83735; 84484; 85025; 85380; 85610; 85730; 87040; 87086; 87636; 93005; 93971; 96361; 96365; 96372; 97161; 97166; 99285; A9270; G0378; J0696; J1650; J7030; Q9967

== ENCOUNTER 2022-10-15 11:37 | Emergency (ER) | payer MEDICARE, OTHER, SELFPAY ==
[2022-10-15] VITALS (19 sets, daily range): BP systolic 109–136; BP diastolic 62–98; PULSE 74–98; RESP 14–24; TEMP 36.8; O2SAT 96–100
--- NOTE | ~2022-10-15 | US_ITS ---
EXAMINATION: US venous doppler LE RT DATE: 10/15/2022 13:06 INDICATION: Right lower limb swelling. TECHNIQUE: Grayscale ultrasound images without and with compression and Doppler ultrasound images of the right lower extremity veins were obtained. COMPARISON: Ultrasound 10/07/2022 FINDINGS: The visualized portions of right common femoral vein, profunda (deep) femoral vein, femoral vein, pop liteal vein, peroneal veins, posterior tibial veins, and greater saphenous vein outflow are patent. S ubcutaneous edema is noted. IMPRESSION: 1. No deep venous thrombosis. Reviewed, dictated and finalized at location A. CAGER
--- NOTE | ~2022-10-15 | XR_ITS ---
EXAMINATION: XR chest 2V 10/15/2022 15:15 INDICATION: Weakness. Atrial fibrillation. PROCEDURE: AP and lateral views of the chest COMPARISON: 10/07/2022 FINDINGS: The lungs are clear. The cardiomediastinal silhouette is within normal limits. There are no pleural effusions. There is no pneumothorax suspected. The lungs are hyperinflated which is cons istent with, but not diagnostic of chronic obstructive pulmonary disease. IMPRESSION: 1: NO ACUTE CARDIOPULMONARY DISEASE. Reviewed, dictated and finalized at location L. ER PIT WORKER
--- NOTE | 2022-10-15 11:43 | ECG_ITS ---
Measurements Intervals [place] Rate: 95 P: 70 DE: 150 QRS: 51 QRSD: 81 T: 64 QT: 356 QTc: 448 Interpretive Statements SINUS RHYTHM NONSPECIFIC T-WAVE ABNORMALITY- INF/HIGH LAT LEADS BASELINE ARTIFACT- I, II, III, AVR BORDERLINE ECG COMPARED TO ECG 10/07/2022 20:05:34 SINUS RHYTHM NOW PRESENT T-WAVE ABNORMALITY NOW PRESENT Electronically Signed On 10-15-2022 11:53:46 [employer] by Óscar Arguello D.O.
--- NOTE | 2022-10-15 12:05 | ED.GENADULT ---
HPI - General Adult General Chief complaint: Recheck/Abnormal Lab/Rx Stated complaint: found to be in afib at doctor's office Time Seen by Provider: 10/15/22 12:03 Source: patient Mode of arrival: ambulatory Limitations: no limitations History of Present Illness HPI narrative: Patient is a 82 yo male with a history of UTI, gout, recent admission for UTI and rhabdomyolysis, presenting to the ER for evaluation of a fib with rvr after seen for hospital follow up today at PCP office. Patient states he feels well, only mild weakness since discharge from the hospital. Denies fever, chills, cough, chest pain, palpitations. Denies shortness of breath. He has been compliant with his antibiotic therapy. Denies any significant myalgias. Patient does report onset right lower extremity swelling that began approximately 1 week ago. He denies any redness, blistering, rash. He does report mild, aching pain in the right lower extremity. Reports left lower extremity is normal. Reviewed the patient's recent ER note, admission history and physical, progress notes, discharge summary and primary care physician note from today. Related Data Home Medications Medication Instructions Recorded Confirmed allopurinol 300 mg tablet 300 mg PO HS 10/08/22 10/15/22 amlodipine 5 mg tablet 5 mg PO HS 10/08/22 10/15/22 lisinopril 20 mg tablet 20 mg PO HS 10/08/22 10/15/22 acetaminophen 500 mg tablet 1,000 mg PO BID PRN 10/15/22 10/15/22 Allergies Allergy/AdvReac Type Severity Reaction Status Date / Time No Known Allergies Allergy Verified 10/15/22 11:07 Review of Systems Review of Systems: CONSTITUTIONAL: Denies fever, chills, or sweats. EYES: Denies visual changes, redness, or discharge. ENT: Denies rhinorrhea, congestion, sore throat, or otalgia. CARDIOVASCULAR: Denies chest pain, palpitations, does report right lower extremity swelling RESPIRATORY: Denies cough or dyspnea. GASTROINTESTINAL: Denies abdominal pain, nausea, vomiting, or diarrhea. GENITOURINARY: Denies dysuria or hematuria. SKIN: Denies rash or itching. MUSCULOSKELETAL: Denies back pain, joint pain, or myalgia. NEUROLOGIC: Denies headache, numbness, reports mild, generalized weakness PMFSH Past Medical History Medical History (Updated 10/15/22 @ 14:40 by Lazara Egan MD) Abdominal aneurysm BPH (benign prostatic hyperplasia) Essential (primary) hypertension Gastritis Gout Gout, unspecified Hyperbilirubinemia Immunization counseling Prostatitis Rhabdomyolysis Screening, lipid Weakness Family History Family History Sibling Hypertension Mother Family history of Alzheimer's disease Social History Social History Social History: Caffeine- coffee Smoking status: Former smoker Second hand tobacco smoke exposure: No Smoking end date: 08/16/04 Alcohol intake: former Substance use: never Substance use type: does not use Lack of Transportation: No Lack of Food: Never True Current Housing: I Have Housing Concerned About Future Housing: No Difficulty Paying Gas/Electric Bills: No Difficulty Paying for Meds: No Currently Unemployed: No Education: High School Diploma/GED Difficulty w/ Childcare or Family Care: No Spiritual care concerns: Yes Exam Narrative: GENERAL: Awake, alert, conversant HEAD: Normocephalic, atraumatic. EYES: PERRLA and EOMI. ENT: Nares clear, no rhinorrhea or epistaxis. Mucous membranes moist. NECK: Supple. CHEST: No respiratory distress, breathing even and non labored HEART: Regular rate, sinus rhythm ABDOMEN:Non distended, non tender EXTREMITIES: Normal range of motion. Pitting right lower extremity edema to the knee, 2+. No significant calf tenderness. No erythema, blisters, ecchymosis, rash, warmth. SKIN: Warm, dry, no rash. NEURO:No focal deficits. Alert and oriented x3 Course Vital Signs Vi
[2022-10-15 12:09] LABS: Basophils Absolute Auto 0.1 K/mm3 (0.0-0.1); Basophils Percent Auto 0.7 % (0.2-1.2); Eosinophils Absolute Auto 0.1 K/mm3 (0-0.3); Eosinophils Percent Auto 1.4 % (0-4.4); Hematocrit 41.5 % (42.0-52.0); Hemoglobin 13.4 g/dL (14.0-18.0); Immature Granulocyte Absolute 0.07 K/mm3 (0.00-0.031); Immature Granulocyte Percent A 0.8 % (0-0.5); Lymphocytes Absolute Auto 1.26 K/mm3 (0.9-3.2); Lymphocytes Percent Auto 13.8 % (18.3-44.2); Mean Corpuscular HGB Conc 32.3 g/dl (32-36); Mean Corpuscular Hemoglobin 30.5 pg (26-34); Mean Corpuscular Volume 94.3 fl (80-100); Mean Platelet Volume 8.8 fl (7.4-10.4); Monocytes Absolute Auto 0.7 K/mm3 (0.1-0.6); Neutrophils Absolute Auto 6.9 K/mm3 (1.3-6.7); Neutrophils Percent Auto 75.3 % (45.5-73.1); Platelet Count Result 374 k/mm3 (150-375); Red Cell Distribution Width 14.6 % (11.5-14.5); White Blood Count 9.2 K/mm3 (4.5-10.0)
[2022-10-15 12:20] LABS: Alanine Aminotransferase 44 U/L (6-50); Albumin Level 3.5 g/dL (3.5-5.1); Alkaline Phosphatase 67 U/L (38-126); Anion Gap 5 mmol/L (8-16); Aspartate Amino Transferase 33 U/L (17-59); Bilirubin,Total 0.6 mg/dL (0.2-1.3); Blood Urea Nitrogen 21 mg/dL (9-20); Calcium 8.5 mg/dL (8.4-10.2); Carbon Dioxide 33 mmol/L (22-30); Chloride 101 mmol/L (98-107); Estimated CRCL calculation 55 ml/min; Estimated Glomerular Filt Rate > 60; Glucose 122 mg/dL (65-110); Sodium 139 mmol/L (137-145)
[2022-10-15] MEDS: SODIUM CHLORIDE 0.9% IV 1,000 ML 999 ML IV CONT (12:56)
[2022-10-15 13:26] LABS: Creatine Kinase 94 U/L (55-170)
[2022-10-15 13:37] LABS: NT Pro B Type Natriuretic Pept 571 pg/mL (19.9-100)
[2022-10-15 14:10] LABS: Troponin I < 0.012 ng/mL (0.000-0.034)
[2022-10-15] MEDS: APIXABAN 5 MG TABLET PO (14:50)
== END 2022-10-15 15:41 | disposition home or self-care (01) ==
PROVIDERS: Emergency Medicine; Emergency Provider Emergency Medicine; PCP Family Medicine
DX: I48.0 Paroxysmal atrial fibrillation (principal); R60.0 Localized edema; I10 Essential (primary) hypertension; M10.9 Gout, unspecified; N40.0 Benign prostatic hyperplasia without lower urinary tract symptoms; E80.6 Other disorders of bilirubin metabolism; Z87.891 Personal history of nicotine dependence; Z87.440 Personal history of urinary (tract) infections; R94.31 Abnormal electrocardiogram [ECG] [EKG]
CPT/HCPCS: 36415; 71046; 80053; 82550; 83880; 84484; 85025; 93005; 93971; 96360; 99284; A9270; J7030

== ENCOUNTER 2022-11-20 12:54 | Outpatient (CLI) | payer MEDICARE, OTHER, SELFPAY ==
[2022-11-20 19:54] LABS: INR 2.3; Prothrombin Time 24.2 Seconds (11.1-14.7)
== END 2022-11-20 12:55 | disposition home or self-care (01) ==
LOC: ANHGOSHLAB 12:56
PROVIDERS: PCP Family Medicine; Visit Provider Internal Medicine Cardiovascular Disease
DX: I48.0 Paroxysmal atrial fibrillation (principal)
CPT/HCPCS: 36415; 85610

== ENCOUNTER 2022-11-26 07:19 | Outpatient (CLI) | payer MEDICARE, OTHER, SELFPAY ==
--- NOTE | ~2022-11-26 | NM_ITS ---
EXAMINATION: NM cari stress w perfusion DATE: 11/26/2022 11:19 INDICATION: Other forms of dyspnea. TECHNIQUE: Rest images were obtained following intravenous administration of 10.7 mCi Tc99m tetrofosm in (Myoview). The patient was infused intravenously with Lexiscan (regadenoson). Then, 32.0 mCi Tc99m tetrofosmin (Myoview) was administered intravenously, and supine and prone stress images were obtain ed. Data was reconstructed into short axis and horizontal and vertical long axis SPECT images. Gated SPECT images were also obtained. COMPARISON: None. FINDINGS: There is no definite reversible or fixed perfusion abnormality to suggest ischemia or infar ction. There is no segmental wall motion abnormality. Left ventricular ejection fraction measures 6 2%. IMPRESSION: 1. No definite ischemia or infarct. 2. Normal left ventricular ejection fraction measuring 62%. Reviewed, dictated and finalized at location A.
--- NOTE | 2022-11-26 07:44 | EST_ITS ---
Patient Info Name: Sachin Mast Age: 82 years : 1940 Gender: Male Ht: 68 in Wt: 170 lbs BSA: 1.94 m2 HR: 63 bpm BP: 169 / 83 mmHg Heart Rhythm: Sinus Rhythm Exam Date: 11/26/2022 10:14 AM Exam Location: [facility] Stress Patient Status: Outpatient Admit Date: 11/26/2022 Staff Ordering Physician: Óscar Arguello DO Attending Provider: Óscar Arguello DO Exercise Technologist: Suly Arthur CT Exercise Physician: Óscar Arguello DO Exam Type: CA stress cari w NM Study Info Indications R06.09 - Other forms of dyspnea I48.1 - Persistent atrial fibrillation A regadenoson stress test was performed. Summary 1. 1. Negative lexiscan stress test for ischemic ST changes by ECG criteria. 2. 2. Baseline hypertension. 3. 3. Nuclear scan to follow and will be reported separately. Please correlate with it. 4. 4. Patient informed of the above results. Protocol: Lexiscan Stress ECG Details Stage: REST Duration (min): 3 min : 58 sec HR (bpm): 64 SBP (mmHg): 163 DBP (mmHg): 92 Stage: REST Duration (min): 7 min : 43 sec HR (bpm): 70 SBP (mmHg): 163 DBP (mmHg): 92 Stage: STAGE 1 Duration (min): 1 min : 0 sec HR (bpm): 73 SBP (mmHg): 179 DBP (mmHg): 89 Stage: RECOVERY Duration (min): 1 min : 0 sec HR (bpm): 81 SBP (mmHg): 179 DBP (mmHg): 89 Stage: RECOVERY Duration (min): 2 min : 0 sec HR (bpm): 78 SBP (mmHg): 179 DBP (mmHg): 89 Stage: RECOVERY Duration (min): 2 min : 0 sec HR (bpm): 78 SBP (mmHg): 179 DBP (mmHg): 89 Rest HR: 70 bpm Peak HR: 81 bpm Rest Sys BP: 163 mmHg Peak Sys BP: 179 mmHg Max Pred HR: 139 bpm % Max Pred HR: 58 % Target HR: 118 bpm Max RPP: 14,499 bpm*mmHg Termination Reason: Completed protocol Cardiac Symptoms: Shortness of breath Total Time: 1 min : 0 sec Rest Duran BP: 92 mmHg Peak Duran BP: 89 mmHg Total Dose: 0.4 mg Resting ECG Sinus rhythm, RBBB. Stress ECG No ST changes. Arrhythmias None. Report Signatures
--- NOTE | 2022-11-26 07:44 | ECHO_ITS ---
Patient Info Name: Sachin Mast Age: 82 years : 1940 Gender: Male Ht: 68 in Wt: 175 lbs BSA: 1.97 m2 HR: 67 bpm BP: 147 / 80 mmHg Technical Quality: Good Exam Date: 11/26/2022 8:07 AM Exam Location: [facility] Pulmonary Patient Status: Outpatient Admit Date: 11/26/2022 Staff Ordering Physician: Óscar Arguello DO Forensic Audit Expert: Carina Sheldon RDCS Attending Provider: Óscar Arguello DO Referring Physician: Jos MOSQUEDA; Exam Type: CA echo doppler color flow Study Info Indications I48.0 - Paroxysmal atrial fibrillation Complete two-dimensional, color flow and Doppler transthoracic echocardiogram is performed. Summary 1. Complete two-dimensional, color flow and Doppler transthoracic echocardiogram is performed. 2. Left ventricular chamber dimension is normal. 3. Left ventricular systolic function is normal, estimated at 60-65%. 4. The left ventricular diastolic function is grade II diastolic dysfunction. 5. E/e' 10 is mildly elevated. 6. Global longitudinal strain is normal at -19.1%. 7. There is mild aortic valve sclerosis. 8. There is mild aortic valve regurgitation. 9. The mitral valve has mildly calcified annulus. 10. No pulmonary hypertension, estimated pulmonary arterial systolic pressure is 18 mmHg. Left Ventricle E/e' 10 is mildly elevated. Global longitudinal strain is normal at -19.1%. Left ventricular chamber dimension is normal. Left ventricular systolic function is normal, estimated at 60-65%. The left ventricular diastolic function is grade II diastolic dysfunction. Right Ventricle Right ventricular chamber dimension is normal. Right ventricular systolic function is normal. Left Atria Left atrial chamber dimension is normal. Right Atria Right atrial chamber dimension is normal. Aortic Valve The aortic valve is trileaflet. There is mild aortic valve sclerosis. There is no aortic valve stenosis. There is mild aortic valve regurgitation. Pulmonic Valve There is no pulmonic regurgitation. Mitral Valve The mitral valve has mildly calcified annulus. There is no mitral valve stenosis. There is no mitral valve regurgitation. Tricuspid Valve There is no tricuspid valve regurgitation. No pulmonary hypertension, estimated pulmonary arterial systolic pressure is 18 mmHg. Pericardium/Pleural There is no pericardial effusion. Inferior Vena Cava Normal inferior vena cava with >50% collapse upon inspiration consistent with normal right atrial pressure, 5 mmHg. Aorta The aortic root size at the sinus of Valsalva is normal. Left Ventricular Outflow Tract Name Value Normal LVOT 2D LVOT Diameter 2.0 cm LVOT Doppler LVOT Peak Gradient 3 mmHg LVOT Mean Gradient 2 mmHg LVOT VTI 22 cm LVOT VTI/AV VTI Ratio 0.7 LVOT Stroke Volume 72 ml LVOT CO 4.0 l/min LVOT CI 2.0 l/min/m2 Pulmonic Valve
== END 2022-11-26 07:20 | disposition home or self-care (01) ==
LOC: ANHCARD 07:21
PROVIDERS: PCP Family Medicine; Visit Provider Internal Medicine Cardiovascular Disease
DX: R06.09 Other forms of dyspnea (principal); I48.0 Paroxysmal atrial fibrillation; I10 Essential (primary) hypertension; I08.0 Rheumatic disorders of both mitral and aortic valves
CPT/HCPCS: 78452; 93017; 93306; A9502; J2785

== ENCOUNTER 2022-11-27 13:30 | Outpatient (RCR) | payer MEDICARE, OTHER, SELFPAY ==
--- NOTE | 2022-10-28 16:21 | PTOPEVAL1 ---
Assessment and note entered by Cammy Medel, PT, DPT Evaluation Information Assessment Status Evaluation Diagnosis weakness after hospitalization Onset 1 month Subjective Information Pt was recently hospitalized from 10/07/22 to with rhabdomyolysis. He states since this hospitalization he has been having knee pain. Pt states about a month ago he was able to walk 1 mile, ride a bike 4 times, and get up/down his basement stairs without an issues. Reported Pain Level Pain Score 0: Self Report Assessment PT Clinical Summary Sachin Chua presents to therapy today for his initial evaluation with a diagnosis of weakness. He reports R knee pain as well as weakness. Today he demonstrates notable weakness in his hips, ankles, and knees emmy. He demonstrates increased time to complete the TUG and 5xSTS and has a decreased gait speed during the 2 min walk test, all placing him at an increased risk for falls. Skilled physical therapy services are indicated to improve LE strength, improve functional balance and mobility, and to return to baseline function. Plan of Care Interventions Gait Training,Neuro Re-education,Patient/Caregiver Educati,Therapeutic Activities,Therapeutic Exercise PT Services Indicated Yes Treatment Frequency and 2x/wk for 4 wks Duration These treatments will address the objective and functional deficits as defined above. The patient will be advanced safely and appropriately in order for the patient to progress towards his/her prior level of function. Additional exercises will be introduced and as well as a comprehensive home exercise program upon discharge, if needed, ?to ensure carryover of functional gains achieved in the clinic. This treatment plan has been reviewed and agreement upon by the patient.
--- NOTE | 2022-11-27 14:07 | PTOPDC ---
Assessment and note entered by Cammy Medel, PT, DPT Evaluation Information Assessment Status Discharge Diagnosis weakness after hospitalization Onset 1 month Subjective Information Pt states his strength has improved, he has been about to go out an do some walking. Pt reports about 50-60% return to baseline line to prior to his hospitalization. Pts states he was able to walk outside in the yard today without a cane and was pulling weeds. Pt reports good complaince with his HEP. Reported Pain Level Pain Score 3,3: Self Report Assessment PT Clinical Summary Harshil presents to therapy today for his progress report following 8 visits of skilled therapy to treat weakness and deconditioning secondary to a prolonged hospital stay. Today he demonstrates a 13s TUG time and a Tinetti score of 24/28, both indicating he in not at a risk for falls. He improved his distance on the 2 min walk test from 220ft with a WW to 290ft without a device. He has met or progressed well towards all of his therapy goals and no longer requires skilled therapy. He will be discharged at this time. Plan of Care PT Services Indicated No
== END 2022-11-27 14:34 | disposition home or self-care (01) ==
LOC: ANHGOSHPT 13:30
PROVIDERS: PCP Family Medicine; Visit Provider Family Medicine
DX: M62.82 Rhabdomyolysis (principal); R53.1 Weakness
CPT/HCPCS: 97110; 97112; 97116; 97140; 97161; 97530

== ENCOUNTER 2022-11-30 10:35 | Outpatient (CLI) | payer MEDICARE, OTHER, SELFPAY ==
[2022-11-30 19:09] LABS: INR 4.5; Prothrombin Time 41.6 Seconds (11.1-14.7)
== END 2022-11-30 10:36 | disposition home or self-care (01) ==
LOC: ANHGOSHLAB 10:37
PROVIDERS: PCP Family Medicine; Visit Provider Internal Medicine Cardiovascular Disease
DX: I48.0 Paroxysmal atrial fibrillation (principal)
CPT/HCPCS: 36415; 85610

== ENCOUNTER 2023-01-12 09:50 | Outpatient (RCR) | payer MEDICARE, OTHER, SELFPAY ==
[2022-12-07 18:40] LABS: INR 1.8; Prothrombin Time 20.2 Seconds (11.1-14.7)
[2022-12-14 14:00] LABS: INR 1.7; Prothrombin Time 21.4 Seconds (11.1-14.7)
[2022-12-21 18:47] LABS: INR 1.6; Prothrombin Time 20.2 Seconds (11.1-14.7)
[2022-12-28 19:05] LABS: INR 1.8; Prothrombin Time 22.2 Seconds (11.1-14.7)
[2023-01-04 18:48] LABS: INR 1.9; Prothrombin Time 22.6 Seconds (11.1-14.7)
[2023-01-12 14:25] LABS: Prothrombin Time 23.9 Seconds (11.1-14.7)
== END 2023-03-07 23:59 | disposition home or self-care (01) ==
LOC: ANHGOSHLAB 09:50
PROVIDERS: PCP Family Medicine; Visit Provider Internal Medicine Cardiovascular Disease
DX: I48.0 Paroxysmal atrial fibrillation (principal)
CPT/HCPCS: 36415; 85610

== ENCOUNTER 2023-04-20 11:08 | Outpatient (RCR) | payer MEDICARE, OTHER, SELFPAY ==
[2023-02-01 14:30] LABS: INR 2.5; Prothrombin Time 28.8 Seconds (11.1-14.7)
[2023-02-22 12:46] LABS: Prothrombin Time 24.5 Seconds (11.1-14.7)
[2023-03-08 19:38] LABS: INR 2.2; Prothrombin Time 26.6 Seconds (11.1-14.7)
[2023-04-05 17:51] LABS: INR 2.8
[2023-04-20 18:59] LABS: INR 2.3; Prothrombin Time 26.8 Seconds (11.1-14.7)
== END 2023-05-02 23:59 | disposition home or self-care (01) ==
LOC: ANHGOSHLAB 11:08
PROVIDERS: PCP Family Medicine; Visit Provider Internal Medicine Cardiovascular Disease
DX: I48.0 Paroxysmal atrial fibrillation (principal)
CPT/HCPCS: 36415; 85610

== ENCOUNTER 2023-07-26 09:34 | Outpatient (RCR) | payer MEDICARE, OTHER, SELFPAY ==
[2023-06-07 18:40] LABS: INR 2.3; Prothrombin Time 27.3 Seconds (11.1-14.7)
[2023-07-05 19:00] LABS: INR 2.1; Prothrombin Time 25.2 Seconds (11.1-14.7)
[2023-07-26 18:45] LABS: INR 2.2; Prothrombin Time 26.5 Seconds (11.1-14.7)
== END 2023-08-15 23:59 | disposition home or self-care (01) ==
LOC: ANHGOSHLAB 09:34
PROVIDERS: PCP Family Medicine; Visit Provider Internal Medicine Cardiovascular Disease
DX: I48.0 Paroxysmal atrial fibrillation (principal)
CPT/HCPCS: 36415; 85610

== ENCOUNTER 2023-08-29 07:24 | Emergency (ER) | payer MEDICARE, OTHER, SELFPAY ==
--- NOTE | ~2023-08-29 | XR_ITS ---
EXAMINATION: XR chest 2V DATE: 08/29/2023 07:52 INDICATION: Weakness, atrial fibrillation TECHNIQUE: AP and lateral views of the chest are obtained. COMPARISON: 10/15/2022 FINDINGS: The lungs are free of acute opacities. No pleural effusion or pneumothorax. The cardiomedia stinal silhouette is normal. There is mild thoracic spondylosis. IMPRESSION: 1. No acute cardiopulmonary abnormality. Reviewed, dictated and finalized at location F. [employer] OFFICER AFLOAT
[2023-08-29 07:14] VITALS: BP 126/76; PULSE 114; RESP 25; TEMP 36.8; O2SAT 95
[2023-08-29 07:35] VITALS: BP 117/69; PULSE 114; RESP 19; O2SAT 94
--- NOTE | 2023-08-29 07:37 | ECG_ITS ---
Measurements Intervals [place] Rate: 112 P: 75 AK: 157 QRS: -75 QRSD: 124 T: 47 QT: 343 QTc: 470 Interpretive Statements SINUS TACHYCARDIA ATRIAL PREMATURE COMPLEXES LEFT AXIS DEVIATION RIGHT BUNDLE BRANCH BLOCK CONSIDER INFERIOR INFARCT, AGE INDETERMINATE BASELINE ARTIFACT- I, III, AVL ABNORMAL ECG COMPARED TO ECG 10/15/2022 11:48:18 SINUS TACHYCARDIA NOW PRESENT RIGHT BUNDLE-BRANCH BLOCK NOW PRESENT Electronically Signed On 08-29-2023 11:05:11 PROGRAM THERAPIST by Óscar Arguello D.O.
[2023-08-29 07:47] LABS: Hematocrit 44.4 % (42.0-52.0); Hemoglobin 14.3 g/dL (14.0-18.0); Mean Corpuscular HGB Conc 32.2 g/dl (32-36); Mean Corpuscular Hemoglobin 30.6 pg (26-34); Mean Corpuscular Volume 95.1 fl (80-100); Mean Platelet Volume 9.4 fl (7.4-10.4); Platelet Count Result 195 k/mm3 (150-375); Red Blood Count 4.67 M/mm3 (4.6-6.20); Red Cell Distribution Width 14.3 % (11.5-14.5); White Blood Count 14.7 K/mm3 (4.5-10.0)
[2023-08-29 07:57] LABS: Appearance Urine Cloudy (Clear); Bacteria Urine None Seen /hpf; Bilirubin Urine Negative (Negative); Blood Urine 3+ (Negative); Color Urine Yellow (Yellow); Glucose Urine UA Negative (Negative); Ketones Urine Negative (Negative); Leukocyte Esterase Ur 3+ LEU/UL (Negative); Nitrate Urine Negative (Negative); Non Pathogenic Casts 0-2; Protein Urine 1+ mg/dL (Negative); RBC Urine >100 /hpf (0-2); Specific Grav Ur 1.018 (1.001-1.035); Squamous Epithelial Cell Urine None seen /hpf (Few); Urobilinogen Urine 0.2 mg/dL (<2.0); WBC Urine >100 /hpf
[2023-08-29 08:05] LABS: Add Urine Microscopic? YES
[2023-08-29 08:12] LABS: Band Neutrophils Percent 11 % (0-6); Lymphocytes Absolute Manual 0.44 K/mm3 (1.1-4.5); Monocytes Absolute Manual 1.32 K/mm3 (0.1-0.90); Monocytes Percent Manual 9 % (3-9); Neutrophils Absolute Manual 12.93 K/mm3 (1.3-6.7); Neutrophils Percent Manual 77 % (46-73); Platelet Estimate Adequate (Adequate); Schistocytes None Seen (NORMAL); Total Cells Counted 100
[2023-08-29 08:14] VITALS: BP 101/71; PULSE 105; RESP 23; O2SAT 94
--- NOTE | 2023-08-29 08:21 | ED.GENADULT ---
HPI - General Adult General Chief complaint: Weakness Stated complaint: weakness, blood in urine, fall @ 0200 Time Seen by Provider: 08/29/23 07:46 History of Present Illness HPI narrative: 83-year-old male history of urinary retention presenting to the emergency department for evaluation after having a ground level fall last night. Patient states over last few days he has had increased difficulty urinating. Patient reports he was up every 30 minutes last night attempting to urinate. 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 Patient states his legs gave out last night causing him to fall. Patient denies any pain or injury from the fall patient denies striking head denies any loss of consciousness. Patient does have history of COPD and does report some cough but denies any shortness of breath denies any change in his chronic cough. Patient denies any associated abdominal pain. Related Data Home Medications Medication Instructions Recorded Confirmed lisinopril 20 mg tablet 20 mg PO HS 10/08/22 06/10/23 acetaminophen 500 mg tablet 500 mg PO Q6H PRN 11/17/22 06/10/23 (Tylenol Extra Strength) warfarin 5 mg tablet 3 mg PO DAILY 12/08/22 06/10/23 Allergies Allergy/AdvReac Type Severity Reaction Status Date / Time No Known Allergies Allergy Verified 08/29/23 07:36 Review of Systems Review of Systems: All systems reviewed & are unremarkable except as noted in HPI and below PMFSH Past Medical History Medical History (Updated 08/29/23 @ 10:11 by Ruben Bhatt MD) Abdominal aneurysm BPH (benign prostatic hyperplasia) Essential (primary) hypertension Gastritis Gout Gout, unspecified Hyperbilirubinemia Immunization counseling Left knee DJD Prostatitis Rhabdomyolysis Right knee DJD Screening, lipid Weakness Family History Family History Sibling Hypertension Mother Family history of Alzheimer's disease Social History Social History Social History: Caffeine- coffee Smoking status: Former smoker Second hand tobacco smoke exposure: No Smoking end date: 08/16/04 Alcohol intake: former Substance use: never Substance use type: does not use Lack of Transportation: No Lack of Food: Never True Current Housing: I Have Housing Concerned About Future Housing: No Difficulty Paying Gas/Electric Bills: No Difficulty Paying for Meds: No Currently Unemployed: No Education: High School Diploma/GED Difficulty w/ Childcare or Family Care: No Spiritual care concerns: Yes Exam Narrative: APPEARANCE: Well appearing, no pain, no distress, well-nourished. HEAD: normocephalic, atraumatic. EYES: PERRLA/EOMI, conjunctivae clear. NOSE: Normal no drainage EARS:TMS clear with good light reflex. THROAT: Pharynx clear, no exudate. NECK: Supple. No adenopathy, no masses. RESPIRATORY: Airway patent, respirations nonlabored. Clear to auscultation bilaterally, no rales, rhonchi, wheezing. CARDIOVASCULAR: Regular rate and rhythm without murmurs rubs or gallops. ABDOMINAL: Soft, nontender, nondistended, normal bowel sounds MUSCULOSKELETAL: Moves all extremities. Strength/ROM intact, No edema, No calf tenderness. NEURO: Alert. Cranial nerves II through XII intact. Grossly intact SKIN: Warm, dry. Normal Color Course Course Emergency Course: 83-year-old male with history of urinary retention presented to the ED for evaluation hematuria. Patient did have 300 mL of retained urine postvoid. Urine was concerning for urinary tract infection patient was started on Rocephin. Paulino catheter was placed. Patient is afebrile but does have a leukocytosis of 14.7. Patient states he feels as well enough to go home. Admission was discussed with the patient but he states he feels strong for discharge. Patient was able to ambulate in the emergency d
[2023-08-29 08:40] LABS: Influenza A QL RT-PCR Negative (Negative); Influenza B QL RT-PCR Negative (Negative); RSV RNA, RT-PCR Negative (Negative); SARS-CoV-2 RNA PCR Negative (Negative)
[2023-08-29 08:41] VITALS: BP 104/65; PULSE 103; RESP 20; O2SAT 96
[2023-08-29 09:16] VITALS: BP 109/62; PULSE 103; RESP 22; O2SAT 95
[2023-08-29 09:16] LABS: Alanine Aminotransferase 17 U/L (6-50); Albumin Level 3.8 g/dL (3.5-5.1); Alkaline Phosphatase 63 U/L (38-126); Anion Gap 9 mmol/L (8-16); Aspartate Amino Transferase 30 U/L (17-59); Bilirubin,Total 1.8 mg/dL (0.2-1.3); Blood Urea Nitrogen 31 mg/dL (9-20); Calcium 9.1 mg/dL (8.4-10.2); Carbon Dioxide 24 mmol/L (22-30); Chloride 109 mmol/L (98-107); Estimated CRCL calculation 49 ml/min; Estimated Glomerular Filt Rate > 60; Glucose 105 mg/dL (65-110); Potassium 3.9 mmol/L (3.4-5.0); Sodium 142 mmol/L (137-145)
[2023-08-29] MEDS: LIDOCAINE HCL 2% GEL UROJET 10 ML PKG (09:16)
== END 2023-08-29 10:44 | disposition home or self-care (01) ==
PROVIDERS: Emergency Provider Emergency Medicine; PCP Family Medicine
DX: N39.0 Urinary tract infection, site not specified (principal); N40.1 Benign prostatic hyperplasia with lower urinary tract symptoms; R33.8 Other retention of urine; Z20.822 Contact with and (suspected) exposure to COVID-19; J44.9 Chronic obstructive pulmonary disease, unspecified; I10 Essential (primary) hypertension; N41.9 Inflammatory disease of prostate, unspecified; M10.9 Gout, unspecified; M17.0 Bilateral primary osteoarthritis of knee; Z87.891 Personal history of nicotine dependence; Z79.01 Long term (current) use of anticoagulants
CPT/HCPCS: 36415; 71046; 80053; 81001; 85025; 87086; 87088; 87637; 93005; 96365; 99284; J0696

== ENCOUNTER 2023-08-30 17:38 | Emergency (ER) | payer MEDICARE, OTHER, SELFPAY ==
[2023-08-30] VITALS (13 sets, daily range): BP systolic 106–146; BP diastolic 57–101; PULSE 76–118; RESP 12–16; TEMP 36.6; O2SAT 95–100
[2023-08-30 22:02] LABS: Basophils Percent Auto 0.4 % (0.2-1.2); Eosinophils Absolute Auto 0.2 K/mm3 (0-0.3); Hematocrit 48.2 % (42.0-52.0); Hemoglobin 15.3 g/dL (14.0-18.0); Immature Granulocyte Absolute 0.04 K/mm3 (0.00-0.031); Immature Granulocyte Percent A 0.5 % (0-0.5); Lymphocytes Absolute Auto 1.04 K/mm3 (0.9-3.2); Lymphocytes Percent Auto 13.7 % (18.3-44.2); Mean Corpuscular HGB Conc 31.7 g/dl (32-36); Mean Corpuscular Hemoglobin 30.4 pg (26-34); Mean Corpuscular Volume 95.6 fl (80-100); Mean Platelet Volume 9.8 fl (7.4-10.4); Monocytes Percent Auto 13.1 % (2.6-8.5); Neutrophils Absolute Auto 5.3 K/mm3 (1.3-6.7); Neutrophils Percent Auto 69.3 % (45.5-73.1); Platelet Count Result 176 k/mm3 (150-375); Red Blood Count 5.04 M/mm3 (4.6-6.20); Red Cell Distribution Width 14.6 % (11.5-14.5); White Blood Count 7.6 K/mm3 (4.5-10.0)
[2023-08-30 22:12] LABS: Anion Gap 9 mmol/L (8-16); Blood Urea Nitrogen 40 mg/dL (9-20); Calcium 8.8 mg/dL (8.4-10.2); Carbon Dioxide 30 mmol/L (22-30); Chloride 102 mmol/L (98-107); Estimated Glomerular Filt Rate 42; Glucose 119 mg/dL (65-110); Sodium 141 mmol/L (137-145)
[2023-08-30 22:13] LABS: INR 2.2; Partial Thromboplastin Time 50.9 SECONDS (22.3-36.8); Prothrombin Time 25.8 Seconds (11.1-14.7)
--- NOTE | 2023-08-30 23:05 | ED.GENADULT ---
HPI - General Adult General Chief complaint: Urogenital-Male Stated complaint: BLOOD IN STEVENS CATH Time Seen by Provider: 08/30/23 20:27 History of Present Illness HPI narrative: This is an 83-year-old male presenting with hematuria. He was seen this morning for urinary tract infection and urinary retention. Is started on antibiotics and a Stevens catheter was placed. He had been doing well throughout the day and then had some hematuria in his back and then it stops draining. Patient is on Coumadin. patient does not recall any trauma to the Stevens. He does not have any significant abdominal he does have some penile irritation. Patient denies fever chills nausea vomiting diarrhea flank pain. Related Data Home Medications Medication Instructions Recorded Confirmed lisinopril 20 mg tablet 20 mg PO HS 10/08/22 06/10/23 acetaminophen 500 mg tablet 500 mg PO Q6H PRN 11/17/22 06/10/23 (Tylenol Extra Strength) warfarin 5 mg tablet 3 mg PO DAILY 12/08/22 06/10/23 Allergies Allergy/AdvReac Type Severity Reaction Status Date / Time No Known Allergies Allergy Verified 08/29/23 07:36 [facility] Past Medical History Medical History Abdominal aneurysm BPH (benign prostatic hyperplasia) Essential (primary) hypertension Gastritis Gout Gout, unspecified Hyperbilirubinemia Immunization counseling Left knee DJD Prostatitis Rhabdomyolysis Right knee DJD Screening, lipid Weakness Family History Family History Sibling Hypertension Mother Family history of Alzheimer's disease Social History Social History Social History: Caffeine- coffee Smoking status: Former smoker Second hand tobacco smoke exposure: No Smoking end date: 08/16/04 Alcohol intake: former Substance use: never Substance use type: does not use Lack of Transportation: No Lack of Food: Never True Current Housing: I Have Housing Concerned About Future Housing: No Difficulty Paying Gas/Electric Bills: No Difficulty Paying for Meds: No Currently Unemployed: No Education: High School Diploma/GED Difficulty w/ Childcare or Family Care: No Spiritual care concerns: Yes Exam Narrative: APPEARANCE: No apparent distress. Head: atraumatic. EYES: EOMI, NOSE: Atraumatic NECK: Trachea midline RESPIRATORY: No increased rate of breathing CARDIOVASCULAR: RRR, ABDOMINAL: Non-distended , soft nontender no guarding rebound no palpable bladder genital exam: Stevens in place, normal external genitalia, Stevens bag has dark red blood. MUSCULOSKELETAl: No obvious deformities NEURO: Alert. Moving 4/4 extremities SKIN:: Warm, dry. Normal color PSYCHIATRIC: Normal affect Course Vital Signs Vital signs: Vital Signs Temperature 97.9 F 08/30/23 17:56 Pulse Rate 118 H 08/30/23 17:56 Respiratory Rate 12 08/30/23 17:56 Blood Pressure 106/57 L 08/30/23 17:56 Pulse Oximetry 95 08/30/23 17:56 Oxygen Delivery Room Air 08/30/23 17:56 Temperature 97.9 F 08/30/23 17:56 Pulse Rate 98 08/30/23 21:52 Respiratory Rate 16 08/30/23 21:52 Blood Pressure 132/85 08/30/23 21:52 Pulse Oximetry 100 08/30/23 21:57 Oxygen Delivery Room Air 08/30/23 17:56 Medical Decision Making [facility] Narrative Medical decision making narrative: -Course: 83-year-old male on Coumadin presenting with hematuria. point of care ultrasound showed a depressed bladder. We attempted to irrigate/flush his Stevens but were unsuccessful. Switch to a [address] catheter. 16 [place] was draining without difficulty but there was some leakage around the catheter. This is replaced with a 22 [place] with improvement. We irrigated his bladder and the fluid was crystal clear. Patient discharged with urology follow-up. -DDX includes but is not limited to: Hematuria, clot catheter, po
[2023-08-30] MEDS: LIDOCAINE HCL 2% GEL UROJET 10 ML PKG MUCOUS MEM (23:24)
[2023-08-30] MEDS: SODIUM CHLORIDE 0.9% IV 1,000 ML 999 ML IV CONT (23:58)
--- NOTE | 2023-08-31 00:23 | PC.NURSE ---
First 3 way catheter that was in place was an 18 Fr. Clear with irrigation but patient stated he felt the urge to urinate, and when he pushed the urine squirted out around the catheter. Dr. Smith made aware. [address] was changed to a 22 Fr and there is minimal urine/saline coming out around the tube. Patient requested a bigger rodriguez bag that he can carry opposed to the leg bag.
== END 2023-08-31 00:46 | disposition home or self-care (01) ==
PROVIDERS: Emergency Provider Emergency Medicine; PCP Family Medicine
DX: T83.098A Other mechanical complication of other urinary catheter, initial encounter (principal); I10 Essential (primary) hypertension; N40.0 Benign prostatic hyperplasia without lower urinary tract symptoms; M10.9 Gout, unspecified; M17.0 Bilateral primary osteoarthritis of knee; Z87.891 Personal history of nicotine dependence; Z79.01 Long term (current) use of anticoagulants; Y84.6 Urinary catheterization as the cause of abnormal reaction of the patient, or of later complication, without mention of misadventure at the time of the procedure
CPT/HCPCS: 36415; 51700; 80048; 85025; 85610; 85730; 87040; 96360; 99283; J7030

== ENCOUNTER 2023-08-31 11:46 | Emergency (ER) | payer MEDICARE, OTHER, SELFPAY ==
[2023-08-31 11:52] VITALS: BP 127/68; PULSE 99; RESP 20; TEMP 36.5; O2SAT 100
--- NOTE | 2023-08-31 15:17 | ED.GENADULT ---
HPI - General Adult General Chief complaint: Urogenital-Male Stated complaint: hematuria Time Seen by Provider: 08/31/23 14:21 History of Present Illness HPI narrative: 83-year-old male presenting to the emergency department for evaluation hematuria. Patient was seen in the emergency department 2 days ago and diagnosed with urinary tract infection and urinary retention. Patient was started on antibiotics and a Paulino catheter was placed. Patient returned to the emergency department last night complaining of hematuria. Patient had bladder irrigation and patient's urine cleared up. Patient was told to return to the emergency department if he had any worsening bleeding. When patient was seen in the emergency department on his 2nd visit it was described as gross hematuria. Today on evaluation the patient does have some blood-tinged urine with some small clots. Patient denies any current complaints. Patient states he is having some intermittent bladder spasm but patient states he is also having some leaking around the Paulino catheter but patient does admit to pushing and try to forcefully expel the urine. Patient and family have been attempting to obtain follow-up with Could see case but due to the holiday this has been delayed. Related Data Home Medications Medication Instructions Recorded Confirmed lisinopril 20 mg tablet 20 mg PO HS 10/08/22 06/10/23 acetaminophen 500 mg tablet 500 mg PO Q6H PRN 11/17/22 06/10/23 (Tylenol Extra Strength) warfarin 5 mg tablet 3 mg PO DAILY 12/08/22 06/10/23 Allergies Allergy/AdvReac Type Severity Reaction Status Date / Time No Known Allergies Allergy Verified 08/29/23 07:36 Review of Systems Review of Systems: All systems reviewed & are unremarkable except as noted in HPI and below PMFSH Past Medical History Medical History Abdominal aneurysm BPH (benign prostatic hyperplasia) Essential (primary) hypertension Gastritis Gout Gout, unspecified Hyperbilirubinemia Immunization counseling Left knee DJD Prostatitis Rhabdomyolysis Right knee DJD Screening, lipid Weakness Family History Family History Sibling Hypertension Mother Family history of Alzheimer's disease Social History Social History Social History: Caffeine- coffee Smoking status: Former smoker Second hand tobacco smoke exposure: No Smoking end date: 08/16/04 Alcohol intake: former Substance use: never Substance use type: does not use Lack of Transportation: No Lack of Food: Never True Current Housing: I Have Housing Concerned About Future Housing: No Difficulty Paying Gas/Electric Bills: No Difficulty Paying for Meds: No Currently Unemployed: No Education: High School Diploma/GED Difficulty w/ Childcare or Family Care: No Spiritual care concerns: Yes Exam Narrative: APPEARANCE: Well appearing, no pain, no distress, well-nourished. HEAD: normocephalic, atraumatic. EYES: PERRLA/EOMI, conjunctivae clear. NOSE: Normal no drainage EARS:TMS clear with good light reflex. THROAT: Pharynx clear, no exudate. NECK: Supple. No adenopathy, no masses. RESPIRATORY: Airway patent, respirations nonlabored. Clear to auscultation bilaterally, no rales, rhonchi, wheezing. CARDIOVASCULAR: Regular rate and rhythm without murmurs rubs or gallops. ABDOMINAL: Soft, nontender, nondistended, normal bowel sounds MUSCULOSKELETAL: Moves all extremities. Strength/ROM intact, No edema, No calf tenderness. NEURO: Alert. Cranial nerves II through XII intact. Grossly intact SKIN: Warm, dry. Normal Color Course Course Emergency Course: 83-year-old male with urinary tract infection and an indwelling Paulino catheter presenting to the ED for evaluation of hematuria. Even with the Paulino catheter in place patient had proximal 100 mL o
[2023-08-31] MEDS: PHENAZOPYRIDINE HCL 100 MG TABLET 200 MG PO (16:42)
--- NOTE | 2023-08-31 16:52 | PC.NURSE ---
Upon discharge rodriguez draining pink tinged blood with no clots.
== END 2023-08-31 16:53 | disposition home or self-care (01) ==
PROVIDERS: Emergency Provider Emergency Medicine; PCP Family Medicine
DX: R31.9 Hematuria, unspecified (principal); I10 Essential (primary) hypertension; Z87.891 Personal history of nicotine dependence
CPT/HCPCS: 51700; 99283; A9270

== ENCOUNTER 2023-09-27 10:11 | Outpatient (CLI) | payer MEDICARE, OTHER, SELFPAY ==
[2023-09-27 21:19] LABS: Alanine Aminotransferase 18 U/L (6-50); Albumin Level 3.9 g/dL (3.5-5.1); Alkaline Phosphatase 54 U/L (38-126); Anion Gap 4 mmol/L (8-16); Aspartate Amino Transferase 29 U/L (17-59); Bilirubin,Total 0.9 mg/dL (0.2-1.3); Blood Urea Nitrogen 32 mg/dL (9-20); Calcium 9.2 mg/dL (8.4-10.2); Carbon Dioxide 33 mmol/L (22-30); Chloride 104 mmol/L (98-107); Estimated Glomerular Filt Rate > 60; Glucose 85 mg/dL (65-110); Potassium 4.8 mmol/L (3.4-5.0); Sodium 141 mmol/L (137-145)
== END 2023-09-27 10:12 | disposition home or self-care (01) ==
PROVIDERS: PCP Family Medicine; Visit Provider Family Medicine
DX: Z13.228 Encounter for screening for other metabolic disorders (principal)
CPT/HCPCS: 36415; 80053

== ENCOUNTER 2023-11-29 09:35 | Outpatient (RCR) | payer MEDICARE, OTHER, SELFPAY ==
[2023-09-27 19:24] LABS: INR 2.4; Prothrombin Time 28.2 Seconds (11.1-14.7)
[2023-10-25 19:04] LABS: INR 2.9; Prothrombin Time 32.1 Seconds (11.1-14.7)
[2023-11-08 13:58] LABS: INR 2.5; Prothrombin Time 28.7 Seconds (11.1-14.7)
[2023-11-29 11:29] LABS: INR 2.3; Prothrombin Time 27.1 Seconds (11.1-14.7)
== END 2023-12-26 23:59 | disposition home or self-care (01) ==
LOC: ANHGOSHLAB 09:35
PROVIDERS: PCP Family Medicine; Visit Provider Internal Medicine Cardiovascular Disease
DX: I48.0 Paroxysmal atrial fibrillation (principal)
CPT/HCPCS: 36415; 80053; 85610

== ENCOUNTER 2024-02-14 10:03 | Outpatient (RCR) | payer MEDICARE, OTHER, SELFPAY ==
[2023-12-27 14:33] LABS: INR 2.4; Prothrombin Time 28.5 Seconds (11.1-14.7)
[2024-01-24 15:12] LABS: INR 3.4; Prothrombin Time 34.9 Seconds (11.1-14.7)
[2024-02-01 13:01] LABS: INR 2.8; Prothrombin Time 30.4 Seconds (11.1-14.7)
[2024-02-14 19:40] LABS: INR 2.6; Prothrombin Time 28.2 Seconds (11.1-14.7)
[2024-02-28 15:07] LABS: INR 2.3; Prothrombin Time 25.5 Seconds (11.1-14.7)
== END 2024-03-26 23:59 | disposition home or self-care (01) ==
LOC: ANHGOSHLAB 10:03
PROVIDERS: PCP Family Medicine; Visit Provider Internal Medicine Cardiovascular Disease
DX: Z01.810 Encounter for preprocedural cardiovascular examination (principal); I48.0 Paroxysmal atrial fibrillation
CPT/HCPCS: 36415; 85610

== ENCOUNTER 2024-03-13 12:11 | Outpatient (CLI) | payer MEDICARE, OTHER, SELFPAY ==
--- NOTE | 2024-03-13 13:19 | ECHO_ITS ---
Patient Info Name: Sachin Mast Age: 83 years : 1940 Gender: Male Ht: 68 in Wt: 180 lbs BSA: 2.00 m2 HR: 67 bpm BP: 165 / 89 mmHg Heart Rhythm: Sinus Rhythm Technical Quality: Fair Exam Date: 03/13/2024 1:32 PM Exam Location: Echo Lab Patient Status: Outpatient Admit Date: 03/13/2024 Staff Ordering Physician: Sujit Miranda DO [employer] Driver: Zunilda Palumbo RDCS Attending Provider: Sujit Miranda DO Referring Physician: Ruben MALIK; Exam Type: CA echo doppler color flow Study Info Indications I10 - Essential (primary) hypertension Complete two-dimensional, color flow and Doppler transthoracic echocardiogram is performed. Summary 1. Complete two-dimensional, color flow and Doppler transthoracic echocardiogram is performed. 2. Left ventricular chamber dimension is normal. 3. Left ventricular systolic function is normal, estimated at 65-70%. 4. The left ventricular diastolic function is grade I diastolic dysfunction. 5. E/e' 12 is mildly elevated. 6. There is mild aortic valve sclerosis. 7. There is mild to moderate aortic valve regurgitation. 8. There is trace mitral valve regurgitation. 9. There is trace tricuspid valve regurgitation. 10. No pulmonary hypertension, estimated pulmonary arterial systolic pressure is 20 mmHg. Left Ventricle E/e' 12 is mildly elevated. Left ventricular chamber dimension is normal. Left ventricular systolic function is normal, estimated at 65-70%. The left ventricular diastolic function is grade I diastolic dysfunction. Right Ventricle Right ventricular systolic function is normal and with normal TAPSE 2.7 cm. Right ventricular chamber dimension is normal. Left Atria Left atrial chamber dimension is normal. Right Atria Right atrial chamber dimension is normal. Aortic Valve The aortic valve is trileaflet. There is mild aortic valve sclerosis. There is no aortic valve stenosis. There is mild to moderate aortic valve regurgitation. Pulmonic Valve There is no pulmonic regurgitation. Mitral Valve There is no mitral valve stenosis. There is trace mitral valve regurgitation. Tricuspid Valve There is trace tricuspid valve regurgitation. No pulmonary hypertension, estimated pulmonary arterial systolic pressure is 20 mmHg. Pericardium/Pleural There is no pericardial effusion. Inferior Vena Cava Normal inferior vena cava with >50% collapse upon inspiration consistent with normal right atrial pressure, 5 mmHg. Aorta The aortic root size at the sinus of Valsalva is normal. Left Ventricular Outflow Tract Name Value Normal LVOT 2D LVOT Diameter 2.1 cm LVOT Doppler LVOT Peak Gradient 4 mmHg LVOT Mean Gradient 2 mmHg LVOT VTI 23 cm LVOT VTI/AV VTI Ratio 0.7 LVOT Stroke Volume 80 ml LVOT CO 4.0 l/min LVOT CI 2.0 l/min/m2 Pulmonic Valve Name Value Normal
--- NOTE | 2024-03-13 16:36 | WPDPFTINT ---
PFT Procedure Performed PFT Procedure Performed Plethysmography (Lung Vol) Diffusing Cap (DLCO) Flow Vol Loop Spirometry w/o Bronchodil PFT Interpretation This is a pulmonary function test with spirometry, plethysmography and diffusing capacity. The test was performed and results interpreted in accordance with the 2019 and 2005 ATS/ERS Task Force guidelines respectively using the Global Lung Function Initiative-2012 reference equations. Patient demonstrated good effort and cooperation. Reproducibility criteria were met. The quality of the spirometry maneuver was Grade A. Findings: Spirometry: There is decreased maximal expiratory airflow at all lung volumes with a concave expiratory flow tracing. The contour the inspiratory flow tracing is normal. The FVC is 3.07 L, 86% predicted. The FEV1 is 1.25 L, 47% predicted. The FEV1: FVC ratio is 41%. Plethysmography: The total lung capacity is 7.52 L, 113% predicted. The functional residual capacity is 5.28 L, 146% predicted. The residual volume is 4.45 L, 171% predicted. The residual volume: Total lung capacity ratio is 59%. Diffusing capacity: The diffusing capacity unadjusted for hemoglobin and carboxyhemoglobin is 8.9, 40% predicted. The diffusing capacity adjusted for alveolar volume is 2.55, 69% predicted. Impression: There is a severe obstructive abnormality. The increase in residual volume to total lung volume ratio is consistent with hyperinflation from an obstructive abnormality. The diffusing capacity unadjusted for hemoglobin and carboxyhemoglobin is moderately decreased and normalizes when adjusted for alveolar volume. There are no prior studies for comparison
== END 2024-03-13 12:12 | disposition home or self-care (01) ==
LOC: ANHPFT 12:11
PROVIDERS: PCP Family Medicine; Visit Provider Family Medicine
DX: R06.09 Other forms of dyspnea (principal); J44.9 Chronic obstructive pulmonary disease, unspecified; I11.9 Hypertensive heart disease without heart failure; I35.8 Other nonrheumatic aortic valve disorders
CPT/HCPCS: 93306; 94375; 94726; 94729

== ENCOUNTER 2024-04-18 09:12 | Outpatient (RCR) | payer MEDICARE, OTHER, SELFPAY ==
[2024-03-27 15:01] LABS: INR 1.5; Prothrombin Time 18.5 Seconds (11.1-14.7)
[2024-04-03 14:27] LABS: INR 2.3; Prothrombin Time 25.4 Seconds (11.1-14.7)
[2024-04-18 15:00] LABS: INR 2.4; Prothrombin Time 26.1 Seconds (11.1-14.7)
== END 2024-06-25 23:59 | disposition home or self-care (01) ==
LOC: ANHGOSHLAB 09:12
PROVIDERS: PCP Family Medicine; Visit Provider Internal Medicine Cardiovascular Disease
DX: I48.0 Paroxysmal atrial fibrillation (principal)
CPT/HCPCS: 36415; 85610

== ENCOUNTER 2024-04-24 11:31 | Outpatient (CLI) | payer MEDICARE, OTHER, SELFPAY ==
[2024-04-24 14:25] LABS: Add Urine Microscopic? YES; Appearance Urine Clear (Clear); Bacteria Urine 4+ /hpf; Bilirubin Urine Negative (Negative); Blood Urine Non-Hemolyzed Trace (Negative); Color Urine Yellow (Yellow); Glucose Urine UA Negative (Negative); Ketones Urine Negative (Negative); Leukocyte Esterase Ur 2+ LEU/UL (Negative); Nitrate Urine Positive (Negative); Non Pathogenic Casts 0-2; Protein Urine Negative (Negative); RBC Urine 0-2 /hpf (0-2); Specific Grav Ur 1.013 (1.001-1.035); Squamous Epithelial Cell Urine None Seen /hpf (Few); Urobilinogen Urine 0.2 mg/dL (<2.0); WBC Urine 51-100 /hpf (0-3)
[2024-04-24 15:11] LABS: Anion Gap 9 mmol/L (4-12); Blood Urea Nitrogen 36 mg/dL (9-20); Calcium 9.3 mg/dL (8.4-10.2); Carbon Dioxide 30 mmol/L (22-30); Chloride 101 mmol/L (98-107); Estimated Glomerular Filt Rate 58; Glucose 77 mg/dL (65-110); Potassium 4.5 mmol/L (3.4-5.0); Sodium 140 mmol/L (137-145)
[2024-04-24 15:16] LABS: Basophils Absolute Auto 0.1 K/mm3 (0.0-0.1); Basophils Percent Auto 0.7 % (0.2-1.2); Eosinophils Absolute Auto 0.3 K/mm3 (0-0.3); Eosinophils Percent Auto 4.6 % (0-4.4); Hematocrit 45.6 % (42.0-52.0); Hemoglobin 14.6 g/dL (14.0-18.0); Immature Granulocyte Absolute 0.04 K/mm3 (0.00-0.031); Immature Granulocyte Percent A 0.6 % (0-0.5); Lymphocytes Absolute Auto 1.65 K/mm3 (0.9-3.2); Lymphocytes Percent Auto 23.5 % (18.3-44.2); Mean Corpuscular Hemoglobin 31.1 pg (26-34); Mean Platelet Volume 9.1 fl (7.4-10.4); Monocytes Absolute Auto 0.7 K/mm3 (0.1-0.6); Monocytes Percent Auto 9.8 % (2.6-8.5); Neutrophils Absolute Auto 4.3 K/mm3 (1.3-6.7); Neutrophils Percent Auto 60.8 % (45.5-73.1); Platelet Count Result 226 k/mm3 (150-375); Red Cell Distribution Width 14.4 % (11.5-14.5)
== END 2024-04-24 11:32 | disposition home or self-care (01) ==
LOC: ANHGOSHLAB 11:34
PROVIDERS: PCP Family Medicine; Visit Provider Nurse Practitioner Family
DX: M25.569 Pain in unspecified knee (principal); R53.1 Weakness; I48.0 Paroxysmal atrial fibrillation; I10 Essential (primary) hypertension; N39.0 Urinary tract infection, site not specified; R53.83 Other fatigue; M10.9 Gout, unspecified; R06.09 Other forms of dyspnea; Z13.220 Encounter for screening for lipoid disorders; N40.0 Benign prostatic hyperplasia without lower urinary tract symptoms; M62.82 Rhabdomyolysis
CPT/HCPCS: 36415; 80048; 81001; 85025; 87077; 87086; 87088; 87186

== ENCOUNTER 2024-04-25 09:57 | Outpatient (CLI) | payer MEDICARE, OTHER, SELFPAY ==
--- NOTE | 2024-04-25 10:11 | ECG_ITS ---
Test Date: 2024-04-25 10:18:19 Measurements Intervals [place] Rate: P: MI: QRS: QRSD: T: QT: QTc: Interpretive Statements SINUS RHYTHM RIGHT BUNDLE BRANCH BLOCK LEFT ANTERIOR FASCICULAR BLOCK ABNORMAL ECG Electronically Signed On 04-25-2024 15:18:12 CDT by Óscar Arguello D.O.
== END 2024-04-25 09:58 | disposition home or self-care (01) ==
PROVIDERS: PCP Family Medicine; Visit Provider Nurse Practitioner Family
DX: I48.0 Paroxysmal atrial fibrillation (principal); I10 Essential (primary) hypertension; R06.09 Other forms of dyspnea; I45.2 Bifascicular block; R94.31 Abnormal electrocardiogram [ECG] [EKG]
CPT/HCPCS: 93005

== ENCOUNTER 2024-05-08 09:31 | Outpatient (CLI) | payer MEDICARE, OTHER, SELFPAY ==
[2024-05-08 11:55] LABS: Add Urine Microscopic? YES; Appearance Urine Clear (Clear); Bacteria Urine 4+ /hpf; Bilirubin Urine Negative (Negative); Blood Urine Negative (Negative); Color Urine Yellow (Yellow); Glucose Urine UA Negative (Negative); Ketones Urine Negative (Negative); Leukocyte Esterase Ur 3+ LEU/UL (Negative); Nitrate Urine Positive (Negative); Non Pathogenic Casts 0-2; Protein Urine Negative (Negative); RBC Urine 0-2 /hpf (0-2); Specific Grav Ur 1.009 (1.001-1.035); Squamous Epithelial Cell Urine None Seen /hpf (Few); Urobilinogen Urine 0.2 mg/dL (<2.0); WBC Urine >100 /hpf (0-3)
[2024-05-08 12:01] LABS: Albumin Level 4.4 g/dL (3.5-5.1)
[2024-05-08 12:01] LABS: INR 2.3; Prothrombin Time 25.8 Seconds (11.1-14.7)
[2024-05-08 12:01] LABS: Urine Cotinine NEGATIVE
[2024-05-08 12:02] LABS: Partial Thromboplastin Time 37.9 Seconds (22.3-36.8)
[2024-05-08 12:34] LABS: Hemoglobin A1C 6.1 % (<5.7)
[2024-05-08 13:03] LABS: MRSA (PCR) NOT DETECTED (NOT DETECTE)
== END 2024-05-08 09:32 | disposition home or self-care (01) ==
PROVIDERS: PCP Family Medicine; Visit Provider Orthopaedic Surgery
DX: Z01.818 Encounter for other preprocedural examination (principal); M17.11 Unilateral primary osteoarthritis, right knee
CPT/HCPCS: 80307; 81001; 82040; 83036; 85610; 85730; 86850; 86900; 86901; 87077; 87086; 87088; 87186; 87641

== ENCOUNTER 2024-05-16 01:25 | Day surgery (SDC) | payer MEDICARE, OTHER, SELFPAY ==
[2024-05-08 10:12] VITALS: BP 123/69; PULSE 88; RESP 16; TEMP 36.8; O2SAT 94; BMI 28.3
--- NOTE | 2024-05-08 10:28 | PC.NURSE ---
Report to the Outpatient Waiting Room, entrance under the green pavilion located off [facility], at time __06:00am__on date _05/16/24 . Planned Procedure Time: __07:30am .? Time changes happen often and if your time is changed the preop area will call you the afternoon before. - You and your visitor will be asked to self-screen and do not enter if you have any COVID symptoms. Please call surgeon if you need to reschedule. - A mask is optional within the hospital at this time. Patients may have clear liquids (water, carbonated beverages, clear teas, apple juice) until 3 hours prior to surgery with a maximum of 20 ounces. - No food from midnight until time of surgery and no smoking (04:30am) Take only the following medications with a SIP of water on the morning of surgery: _Metoprolol, Tylenol if needed,Use inhaler as directed. DO NOT STOP ANY OF YOUR OTHER PRESCRIPTION MEDICATIONS PRIOR TO SURGERY EXCEPT THE FOLLOWING Medications to discontinue per physician Coumadin 5 days prior to surgery per Dr Treviño. Date to take last dose____05/10/24 Please no make-up, nail tanzanian, hairspray, perfume, deodorant, or body powder the day of surgery.? No jewelry (including any body piercings) or valuables the day of surgery, leave them at home.? Please take a shower or bath the night before, or the morning of, surgery with an antibacterial soap.? Wear comfortable, loose fitting clothing.? Dr Treviño scrub aleks [place]. - Jewelry must be removed prior to entering the operating room.? Rings and piercings that are not removed may be cut off. - The hospital will not accept responsibility for valuables.? - Please leave all valuables, including medications, at home the day of surgery. If you are going home after surgery, a licensed rolloff truck driver must drive you home.? - NO public transportation without another adult if you receive anesthesia. - We recommend that an adult stay with you for 24 hours following discharge. - We also recommend that you do not drive, make important decision, drink alcoholic beverages, or take any drugs that were not prescribed by your health care provider for at least 24 hours after your discharge time. Follow any additional instructions given to you from your surgeon. Telephone instructions given to _patient and and asked if any additional questions and then verbalized understanding. Patient advised to call surgeon office or pre surgery nurse liaison [phone] if any additional questions.
[2024-05-16] VITALS (13 sets, daily range): BP systolic 88–141; BP diastolic 55–75; PULSE 70–92; RESP 9–20; TEMP 36.3–36.8; O2SAT 90–98; BMI 28.0; BMI 30.6
--- NOTE | ~2024-05-16 | XR_ITS ---
EXAMINATION: [id number] DATE: 05/16/2024 11:02 INDICATION: Postoperative evaluation following right total knee arthroplasty. TECHNIQUE: Anteroposterior and lateral views of the right knee were obtained. COMPARISON: None. FINDINGS: Right total knee arthroplasty without patellar resurfacing appears well seated and in near anatomic a lignment. No fractures identified. Anterior skin gary and expected postoperative subcutaneous and intra-articular gas. IMPRESSION: 1. Right total knee arthroplasty, negative for postoperative purposes. Reviewed, dictated and finalized at location A.
[2024-05-16 06:46] LABS: INR 1.3; Prothrombin Time 16.7 Seconds (11.1-14.7)
[2024-05-16 06:47] LABS: Partial Thromboplastin Time 31.7 Seconds (22.3-36.8)
[2024-05-16] MEDS: LACTATED RINGERS 1,000 ML 30 ML IV CONT ×2 (06:54→10:26)
[2024-05-16] MEDS: ACETAMINOPHEN 500 MG TABLET 1000 MG PO (06:54)
[2024-05-16] MEDS: TRANEXAMIC ACID 1,000MG/ISO100 1,000 MG/100 ML BAG 200 MG IVPB (06:54)
--- NOTE | 2024-05-16 07:21 | WPDHPUPDATE1 ---
History and Physical Update Update Date/Time: 05/16/24 07:21 History and Physical has been reviewed, including an updated exam of the patient. There are NO changes in the patient's condition. Risks, benefits, and alternatives have been discussed and questions answered. Patient agrees to proceed with procedure.
--- NOTE | 2024-05-16 07:26 | WPDANESEPPF ---
Anes - Initial Pre Proc Eval Procedure: Operation Date: 05/16/24 07:30 Proposed Procedures p Right Total Knee Arthroplasty - Dima Treviño MD Date/Time: 05/16/24 07:26 Surgeon: Dima Treviño MD Pre Op Diagnosis: right knee OA Patient Data Age: 83 Gender: M Height: 1.73 m Weight: 83.7 kg Last Vital Signs Temp 98.3 F 05/08/24 10:12 Pulse 88 05/08/24 10:12 Resp 16 05/08/24 10:12 BP 123/69 05/08/24 10:12 Pulse Ox 94 05/08/24 10:12 O2 Del Method Room Air 05/08/24 10:12 Allergies Allergy/AdvReac Type Severity Reaction Status Date / Time No Known Allergies Allergy Verified 05/08/24 10:07 Home Medications Medication Instructions Recorded Confirmed Type acetaminophen 500 mg tablet 500 mg PO Q6H PRN Pain 11/17/22 05/08/24 History (Tylenol Extra Strength) warfarin 1 mg tablet See Rx Instructions .Route 12/06/23 05/08/24 Rx .COMPLEX #30 tabs warfarin 3 mg tablet See Rx Instructions .Route 12/06/23 05/08/24 Rx .COMPLEX #30 tabs metoprolol succinate 25 mg 25 mg PO DAILY #90 tabs 02/01/24 05/08/24 Rx tablet,extended release 24 hr (Toprol XL) allopurinol 300 mg tablet 300 mg PO HS #90 tabs 02/08/24 05/08/24 Rx lisinopril 20 mg tablet 20 mg PO DAILY 02/14/24 05/08/24 History tiotropium 2.5 mcg-olodaterol 2.5 2 puff inhalation DAILY #4 grams 03/16/24 05/08/24 Rx mcg/actuation mist for inhalation (Stiolto Respimat) chlorhexidine gluconate 4 % 1 applic topical ONCE #237 mL 05/09/24 Rx topical liquid (Hibiclens) finasteride 5 mg tablet See Rx Instructions .Route 05/13/24 Rx .COMPLEX #30 tabs tamsulosin 0.4 mg capsule See Rx Instructions .Route 05/13/24 Rx .COMPLEX #30 caps Laboratory Tests 05/16/24 06:30 PT 16.7 H Seconds (11.1-14.7) INR 1.3 APTT 31.7 Seconds (22.3-36.8) Patient hx anesthesia problems: none Family hx anesthesia problems: none Results Review: All pre-operative results and documents have been reviewed as part of the pre-operative evaluation. [facility] Past Medical History Medical History Abdominal aneurysm BPH (benign prostatic hyperplasia) Essential (primary) hypertension Gastritis Gout Gout, unspecified Hyperbilirubinemia Immunization counseling Left knee DJD Other fatigue Prostatitis Rhabdomyolysis Right knee DJD Screening, lipid Weakness Family History Family History Sibling Hypertension Mother Family history of Alzheimer's disease Social History Social History Social History: Caffeine- 3 cups of coffee daily Smoking packs per day: 1 Smoking cigarettes per day: 20.0 Years smoked: 20 Smoking pack-years: 20.00 Smoking status: Former smoker Second hand tobacco smoke exposure: No Smoking end date: 08/16/04 Additional smoking assessment comments: No nicotine use at all per pt Alcohol intake: former Substance use: never Substance use type: does not use Do You Feel Safe in your Home?: Yes Lack of Transportation: No Lack of Food: Never True Current Housing: I Have Housing Concerned About Future Housing: No Difficulty Paying Gas/Electric Bills: No Difficulty Paying for Meds: No Currently Unemployed: No Education: High School Diploma/GED Difficulty w/ Childcare or Family Care: No Living arrangements: with family Additional living arrangements comments: Occupation/Education: retired Sexual Orientation (if Verbalized by the Patient): Straight or Heterosexual Spiritual care concerns: No Anes - Eval Final PreProcedure Day of Procedure 05/16/24 07:26 Patient weight: overweight Heart: regular rate and rhythm Lungs: clear to auscultation Airway: Mallampati scale class II Neurological: alert and oriented Last oral intake: >/= 8 hours ASA cla
[2024-05-16] MEDS: ceFAZolin 2 GM/D5W 50 ML 2 GM/50 ML BAG IVPB ×2 (07:38→15:56)
--- NOTE | 2024-05-16 07:48 | WPDANESPNB ---
Anes - Peripheral Nerve Block Date/Time: 05/16/24 07:48 I have discussed with the patient/family/POA the placement of a peripheral nerve block for post-operative pain management, including associated risks, benefits, complications, and side effects. Alternative methods of post-operative analgesia were detailed. Questions were solicited and answers provided to the satisfaction of the patient/family/POA. Time-Out: A pre-procedural Time-Out was completed immediately before starting the procedure and confirmed: Patient Identification, Site, Procedure, Patient Position and the Availability of Requisite Equipment. Clinical Indications: Acute post-operative pain management requested by the operative surgeon. Nerve Block Insertion Note Anes-nerve block: adductor canal Patient position: supine Skin prep: chlorhexidine Needle: 22 gauge, stimulating, insulated echogenic needle. Needle length: 80 mm Technique: ultrasound Injectate: other (Bupiv 0.5% 12 mls. ) Observations: tolerated well Complications: none Procedure start time:: 728 Procedure end time:: 5
[2024-05-16] MEDS: SODIUM CHLORIDE 0.9% IV 37.7 ML, MORPHINE SULFATE INJ (*CRX) 2 MG, ROPivacaine HCL 1% 2... INFILTRATE (08:24)
[2024-05-16] MEDS: TRANEXAMIC ACID 1,000 MG/10 ML AMPUL 1000 MG IV PUSH (09:31)
--- NOTE | 2024-05-16 10:21 | W.PM.PROC2 ---
Procedure Note - Detailed Date of Procedure 05/16/24 Pre-op Diagnosis right knee OA Post-op Diagnosis Same Procedure Performed R TKA Surgeon Dima Treviño MD Anesthesia General Description of Procedure THE RIGHT KNEE WAS PREPPED AND DRAPED IN THE STERILE FASHION. THERE WAS A 10 DEGREE FLEXION CONTRACTURE. A MIDLINE SKIN INCISION WAS MADE. A MEDIAL PARAPATELLAR ARTHROTOMY WAS MADE. THE PATELLA WAS EVERTED. THERE WAS TRICOMPARTMENT DJD. THERE WAS MINIMAL PATELLA DJD. AN INTRAMEDULLARY UGO WAS PLACED IN THE FEMUR. A DISTAL FEMORAL CUT WAS MADE IN 5 DEGREES OF VALGUS REMOVING APPROXIMATELY 9 MM OF BONE FROM THE DISTAL FEMUR. THE FEMUR WAS SIZED TO 67.5. A 67.5 FEMORAL CUTTING BLOCK WAS PLACED IN 3 DEGREES OF EXTERNAL ROTATION AND IN ALIGNMENT WITH STEVE'S LINE AND THE TRANSEPICONDYLAR AXIS. ANTERIOR POSTERIOR AND CHAMFER CUTS WERE MADE. THE CUTS WERE EXCELLENT. NEXT AN INTRAMEDULLARY CUTTING GUIDE WAS PLACED IN THE TIBIA. A TRANS TIBIAL CUT WAS MADE ALONG THE LONG AXIS OF THE TIBIA. APPROXIMATELY 10 MM OF BONE WAS REMOVED FROM THE HIGH SIDE OF THE TIBIA. THE TIBIA WAS THEN PLANED TO A SMOOTH SURFACE. POSTERIOR FEMORAL OSTEOPHYTES WERE REMOVED FROM THE FEMORAL CONDYLES. A 79 TIBIAL TRIAL WAS PLACED IN ALIGNMENT WITH THE 1/3 MEDIAL ASPECT OF THE TIBIAL TUBERCLE. THEN A 67.5 FEMORAL TRIAL COMPONENT WAS PLACED. BOTH HAD EXCELLENT FITS. EVENTUALLY AN 11 MM CR POLYETHYLENE TRIAL COMPONENT WAS PLACED. THE KNEE WAS TAKEN THROUGH A RANGE OF MOTION. THE KNEE CAME OUT TO FULL EXTENSION. THERE WAS NO ABNORMAL TILT TO THE PATELLA. THERE WAS GOOD A/P AND VARUS/VALGUS STABILITY. THERE WAS NO EXCESSIVE ROLL BACK WITH FLEXION. THE TRIAL COMPONENTS WERE REMOVED. THEN A 67.5 FEMORAL COMPONENT AND 79 TIBIAL COMPONENT WITH AN 11 CR POLYETHYLENE COMPONENT WERE CEMENTED INTO PLACE. ONCE THE CEMENT WAS HARD THE KNEE WAS TAKEN THROUGH A ROM AGAIN AND FOUND TO BE STABLE WITH NO PATELLA TILT NO EXCESSIVE ROLL BACK WITH FLEXION AND GOOD STABILITY WITH COMPLETE AND FULL EXTENSION. THE KNEE WAS IRRIGATED WITH STERILE BETADINE AND WATER FOR ABOUT 3 MINUTES. THE BLEEDERS WERE CAUTERIZED. THE ARTHROTOMY WAS REPAIRED WITH NUMBER 1 VICRYL. THE SUB CUTANEOUS LAYER WITH 2-0 VICRYL AND THE SKIN WITH CODI. THE WOUND WAS WASHED AND A STERILE DRESSING WAS APPLIED. PATIENT WAS EXTUBATED. Estimated Blood Loss -150.0 Pathology None sent Complications No immediate complications Condition Stable Disposition PACU
--- NOTE | 2024-05-16 12:15 | ADMGEN ---
This patient, Sachin Mast, was admitted to [facility] Surg Room 310-01. Patient/family oriented to hospital policies and general routines including ID bracelet, bed and alarms, visiting hours, pain management, procedures, bathroom and other care routines, personal items, smoking policy, room service/diet, and visiting hours. Information on how to activate the Rapid Response Team has been discussed. Patient/Family are encouraged to report perceived risks to care and to ask questions if they do not understand what they are told or what they should do.
[2024-05-16] MEDS: UMECLIDINIUM/VILANTEROL 62.5-25 MCG ELLIPTA 1 PUFF INHALATION (15:07)
[2024-05-16] MEDS: WARFARIN (*PBKC) 5 MG TABLET PO (17:12)
[2024-05-16] MEDS: CELECOXIB 200 MG CAPSULE PO (17:12)
[2024-05-16] MEDS: allopurinoL 300 MG TABLET PO (20:18)
[2024-05-16] MEDS: FAMOTIDINE 20 MG TABLET PO (20:18)
[2024-05-17] MEDS: ceFAZolin 2 GM/D5W 50 ML 2 GM/50 ML BAG IVPB ×2 (00:21→08:33)
[2024-05-17 05:43] VITALS: BP 142/68; PULSE 83; RESP 16; TEMP 36.7; O2SAT 92
[2024-05-17 06:42] LABS: Basophils Percent Auto 0.2 % (0.2-1.2); Eosinophils Percent Auto 0.2 % (0-4.4); Hematocrit 39.2 % (42.0-52.0); Hemoglobin 12.7 g/dL (14.0-18.0); Immature Granulocyte Absolute 0.07 K/mm3 (0.00-0.031); Immature Granulocyte Percent A 0.6 % (0-0.5); Lymphocytes Absolute Auto 1.21 K/mm3 (0.9-3.2); Lymphocytes Percent Auto 10.9 % (18.3-44.2); Mean Corpuscular HGB Conc 32.4 g/dl (32-36); Mean Corpuscular Hemoglobin 31.7 pg (26-34); Mean Corpuscular Volume 97.8 fl (80-100); Mean Platelet Volume 8.6 fl (7.4-10.4); Monocytes Absolute Auto 1.5 K/mm3 (0.1-0.6); Monocytes Percent Auto 13.2 % (2.6-8.5); Neutrophils Absolute Auto 8.4 K/mm3 (1.3-6.7); Neutrophils Percent Auto 74.9 % (45.5-73.1); Platelet Count Result 185 k/mm3 (150-375); Red Blood Count 4.01 M/mm3 (4.6-6.20); Red Cell Distribution Width 14.7 % (11.5-14.5); White Blood Count 11.1 K/mm3 (4.5-10.0)
[2024-05-17 06:51] LABS: Anion Gap 7 mmol/L (4-12); Blood Urea Nitrogen 35 mg/dL (9-20); Calcium 8.2 mg/dL (8.4-10.2); Carbon Dioxide 27 mmol/L (22-30); Chloride 105 mmol/L (98-107); Estimated CRCL calculation 50 ml/min; Estimated Glomerular Filt Rate > 60; Glucose 133 mg/dL (65-110); Potassium 4.5 mmol/L (3.4-5.0); Sodium 139 mmol/L (137-145)
[2024-05-17 06:53] LABS: INR 1.4; Prothrombin Time 17.2 Seconds (11.1-14.7)
[2024-05-17] MEDS: METOPROLOL SUCCINATE EXT REL 25 MG TABCR PO (08:30)
[2024-05-17] MEDS: FAMOTIDINE 20 MG TABLET PO (08:31)
[2024-05-17] MEDS: CELECOXIB 200 MG CAPSULE PO ×2 (08:31→16:50)
[2024-05-17] MEDS: polyethylene glycoL 3350 17 GM POWD.PACK PO (08:31)
[2024-05-17] MEDS: lisinopriL 20 MG TABLET PO (08:31)
[2024-05-17] MEDS: SENNA/DOCUSATE SODIUM TABLET 2 TAB PO ×2 (08:31→16:49)
--- NOTE | 2024-05-17 10:42 | PCRCNOTE ---
Window of time for administration has passed. See next scheduled administration.
[2024-05-17 13:43] VITALS: BP 98/62; PULSE 64; RESP 20; TEMP 36.9; O2SAT 95
[2024-05-17] MEDS: WARFARIN (*PBKC) 5 MG TABLET PO (16:50)
--- NOTE | 2024-05-17 17:11 | PM.PNORT ---
Progress Note: A&P Assessment and Plan (1) Right knee DJD: Qualifiers: Osteoarthritis type: primary Qualified Code(s): M17.11 - Unilateral primary osteoarthritis, right knee Code(s): M17.11 - Unilateral primary osteoarthritis, right knee Status: Acute Assessment and Plan: POD 1 DOING WELL. OK TO DC HOME F/U IN 3 WEEKS Subjective Subjective Date/Time Seen: 05/17/24 17:11 Interval history: POD 1 DOING WELL. NO CALF PAIN. GOOD PROGRESS WITH PT Exam Extrem: Other: VSS AFEBRILE DRESSING DRY NV INTACT NEG HOMANS SIGN CALF AND THIGH NON TENDER Objective Data Vital Signs Vital Signs: Vital Signs - 24 hr 05/16/24 20:46 05/17/24 05:43 05/17/24 13:43 Temperature 36.8 C 36.7 C 36.9 C Pulse Rate 92 83 64 Respiratory Rate 18 16 20 Blood Pressure 124/60 142/68 H 98/62 L Pulse Oximetry 94 92 95 Intake/Output Intake/Output: Intake & Output 05/14/24 05/15/24 05/16/24 05/17/24 23:59 23:59 23:59 23:59 Intake Total 790 770 Balance 790 770 Meds/Results Medications: Active Medications Generic Name Dose Route Start Last Admin Trade Name Freq PRN Reason Stop Dose Admin Acetaminophen 500 mg 05/16/24 11:58 Acetaminophen 500 Mg Tablet PO Q6H PRN Pain Rated 1-3 Allopurinol 300 mg 05/16/24 21:00 05/16/24 20:18 Allopurinol 300 Mg Tablet PO 300 mg HS PETEY Administration Celecoxib 200 mg 05/16/24 11:58 05/17/24 16:50 Celecoxib 200 Mg Capsule PO 200 mg BIDWM PETEY Administration Diazepam 5 mg 05/16/24 11:58 Diazepam (*Crx) 5 Mg Tablet PO Q8H PRN Spasms Diphenhydramine HCl 25 mg 05/16/24 11:58 Diphenhydramine Hcl Inj 50 Mg/Ml Vial IV PUSH Q6H PRN Itching Famotidine 20 mg 05/16/24 11:58 05/17/24 08:31 Famotidine 20 Mg Tablet PO 20 mg Q12HR PETEY Administration Hydromorphone HCl 1 mg 05/16/24 11:58 Hydromorphone Hcl Inj (*Crx) 1 Mg/Ml Syr IV PUSH Q2H PRN Breakthrough Pain Rated 7-10 or NPO Hydromorphone HCl 0.5 mg 05/16/24 11:58 Hydromorphone Hcl Inj (*Crx) 1 Mg/Ml Syr IV PUSH Q2H PRN Breakthrough Pain Rated 4-6 or NPO Ibuprofen 800 mg in 200 mls @ 400 mls/hr 05/16/24 11:58 Caldolor 800 Mg/200 Ml IVPB Q6H PRN Breakthrough Pain Rated 1-3 or NPO Lisinopril 20 mg 05/16/24 11:58 05/17/24 08:31 Lisinopril 20 Mg Tablet PO 20 mg DAILY PETEY Administration Metoprolol Succinate 25 mg 05/16/24 11:58 05/17/24 08:30 Metoprolol Succinate Ext Rel 25 Mg Tabcr PO 25 mg DAILY PETEY Administration Naloxone HCl 0.1 mg 05/16/24 11:58 Naloxone Hcl 0.4 Mg/Ml Vial IV PUSH Q2M PRN Opiate Reversal Ondansetron HCl 4 mg 05/16/24 11:58 Ondansetron Inj 4 Mg/2 Ml Vial IV PUSH Q4H PRN Nausea And Vomiting Oxycodone/Acetaminophen 1 tablet 05/16/24 11:58 Oxycodone/Acetaminophen (*Crx) 5-325 Mg Tablet PO Q4H PRN Pain Rated 4-6 Oxycodone/Acetaminophen 1 tab 05/16/24 11:58 Oxycodone/Acetaminophen (*Crx) 10-325 Mg Tablet PO Q6H PRN Pain Rated 7-10 Polyethylene Glycol 17 gm 05/16/24 11:58 05/17/24 08:31 Polyethylene Glycol 3350 17 Gm Powd.Pack PO 17 gm QAM PETEY Administration Senna/Docusate Sodium 2 tab 05/16/24 11:58 05/17/24 16:49 Senna/Docusate Sodium Tablet PO 2 tab BID PETEY Administration Umeclidinium/Vilanterol 1 puff 05/17/24 09:55 05/17/24 10:42 Umeclidinium/Vilanterol 62.5-25 Mcg Ellipta INHALATION Not Given DAILYRT [facility] Warfarin Sodium 5 mg 05/16/24 17:00 05/17/24 16:50 Warfarin (*Pbkc) 5 Mg Tablet PO 5 mg DAILY@1700 PETEY Administration Radiology Results: ITS Impressions Knee X-Ray 05/16/24 11:11 IMPRESSION: 1. Right total knee arthroplasty, negative for postoperative purposes. Labs Labs: Laboratory Results - last 24 hr 05/17/24 06:33 WBC 11.1 H RBC 4.01 L Hgb 12.7 L Hct 39.2 L MCV 97.8 MCH 31.7 MCHC 3
--- NOTE | 2024-05-17 17:13 | PM.DS ---
DS: Admitting Diagnosis Discharge Date 05/17/24 Admitting Diagnosis RIGHT KNEE DJD DS: Discharge Diagnosis Discharge Diagnosis (1) Right knee DJD: Qualifiers: Osteoarthritis type: primary Qualified Code(s): M17.11 - Unilateral primary osteoarthritis, right knee Code(s): M17.11 - Unilateral primary osteoarthritis, right knee Status: Acute DS: Summary Hospital Course Reason for hospitalization: RIGHT TKA Hospital Course: PATIENT WAS ADMITTED S/P TOTAL KNEE ARTHROPLASTY FOR POSTOPERATIVE MEDICAL MANAGEMENT, PAIN CONTROL AND MOBILIZATION WITH PHYSICAL AND OCCUPATIONAL THERAPY. THE PATIENT PROGRESSED WELL WITH PT/OT. LABS AND VITALS REMAINED STABLE AND PAIN WELL CONTROLLED. THE PATIENT HAS BEEN CLEARED TO BE DISCHARGED HOME. FOLLOW UP APPOINTMENT SCHEDULED. DISCHARGE INSTRUCTIONS DISCUSSED AT LENGTH WITH THE PATIENT. MEDICATIONS REVIEWED. Status at Discharge Cognitive/behavioral status at discharge: STABLE Time Spent with Patient Time attestation: Total time spent providing and/or coordinating discharge services: DS: Data Data Completed and Pending Labs on day of discharge: Labs from last 24 hours 05/17/24 06:33 WBC 11.1 H RBC 4.01 L Hgb 12.7 L Hct 39.2 L MCV 97.8 MCH 31.7 MCHC 32.4 RDW 14.7 H Plt Count 185 MPV 8.6 Immature Gran % (Auto) 0.6 H Neut % (Auto) 74.9 H Lymph % (Auto) 10.9 L Moca % (Auto) 13.2 H Eos % (Auto) 0.2 Baso % (Auto) 0.2 Lymph # (Auto) 1.21 Moca # (Auto) 1.5 H Eos # (Auto) 0.0 Baso # (Auto) 0.0 Abs Immat Gran (auto) 0.07 H Absolute Neuts (auto) 8.4 H Absolute Nucleated RBC 0.000 Nucleated RBC % 0.0 PT 17.2 H INR 1.4 Sodium 139 Potassium 4.5 Chloride 105 Carbon Dioxide 27 Anion Gap 7 BUN 35 H Creatinine 1.10 Estim Creat Clear Calc 50 Estimated GFR > 60 Glucose 133 H Calcium 8.2 L Procedures/Treatments: RIGHT TKA Discharge Plan Discharge Patient Disposition: Home Health Service Discharge Instructions: Post Op Total Knee Replacement Instructions Dr. Dima Treviño [phone] Your dressing will be changed prior to your discharge. You will be sent home with one additional dressing to be changed on post op day 7 by the home health RN. Your gary will be removed on the 14th day after surgery and steri-strips will be placed. Please practice good hand hygiene and do not touch your incision in order to prevent infection. You may shower with your dressing but do not submerge in a bath tub. Do not drive or operate machinery until you are released by Dr. Treviño. Do not walk without a walker for any reason until you are released by Dr. Treviño. Continue to use your ice machine. Please use a towel or pillow case to protect your skin before applying your ice machine. Do NOT place a pillow under your knee. You may use a pillow from the calf down if needed. This will prevent a flexion contracture postoperatively. CPM: You may begin use of your CPM machine at home if you have been given one pre-operatively. DO NOT USE WHILE YOU ARE SLEEPING. ROMTech: If you were given a Gloss[employer] Portable Connect System preoperatively, you are to begin use on the day you arrive home postoperatively. Our goal is for you to use the machine 5 times per day. The sessions are very short in the beginning and will progress as you progress. We are able to monitor your progress from afar as well as your pain and other reported symptoms. If you have difficulties with the machine, please call . NOTE: Please attempt to use the machine even when in pain as this will blending tank tender helper your therapy with very gentle motion. Your first post op appointment was sent to you via mail preoperatively. If you have any questions or are unable to make your appointment, please contact our office for scheduling questions. Your medications have been sent to your pharmacy. You have been sent home with pain medication. Please cotton picker an over the counter stool so
== END 2024-05-17 17:53 | disposition home health service (06) ==
LOC: ANHSURGERY 05:48 → ANH3MEDSUR 12:07
PROVIDERS: PCP Family Medicine; Visit Provider Orthopaedic Surgery
PROC: (CPT 27447; principal; 2024-05-16 07:30)
DX: M17.11 Unilateral primary osteoarthritis, right knee (principal); M25.761 Osteophyte, right knee; G89.18 Other acute postprocedural pain; I10 Essential (primary) hypertension; N40.0 Benign prostatic hyperplasia without lower urinary tract symptoms; I71.40 Abdominal aortic aneurysm, without rupture, unspecified; Z79.01 Long term (current) use of anticoagulants; Z87.891 Personal history of nicotine dependence
CPT/HCPCS: 64447; 27447; 36415; 73560; 80048; 85025; 85610; 85730; 94640; 97110; 97116; 97161; 97165; 97530; 97535; A9270; C1713; C1776; J0171; J0690; J1171; J1885; J2003; J2250; J2270; J2371; J2405; J2704; J2795; J3010; J3370; J7120

== ENCOUNTER 2024-05-19 15:47 | Outpatient (NON) | payer MEDICARE, OTHER, SELFPAY ==
[2024-05-19 16:06] LABS: Add Urine Microscopic? YES; Appearance Urine Clear (Clear); Bacteria Urine None Seen /hpf; Bilirubin Urine Negative (Negative); Blood Urine Negative (Negative); Color Urine Yellow (Yellow); Glucose Urine UA Negative (Negative); Ketones Urine Trace mg/dL (Negative); Leukocyte Esterase Ur Trace LEU/UL (Negative); Nitrate Urine Negative (Negative); Protein Urine 1+ mg/dL (Negative); Specific Grav Ur 1.018 (1.001-1.035); Squamous Epithelial Cell Urine Occasional /hpf (Few); Urobilinogen Urine 0.2 mg/dL (<2.0); WBC Urine 0-5 /hpf (0-3)
== END 2024-05-19 15:48 | disposition home or self-care (01) ==
LOC: ANHLAB 15:51
PROVIDERS: PCP Family Medicine; Visit Provider Family Medicine
DX: N39.0 Urinary tract infection, site not specified (principal)
CPT/HCPCS: 81001

== ENCOUNTER 2024-07-25 08:45 | Outpatient (RCR) | payer MEDICARE, OTHER, SELFPAY ==
--- NOTE | 2024-06-21 10:10 | OPREHPOC ---
Outpatient Therapy Plan of Care This is a Multidisciplinary Plan of Care that may contain components documented by all disciplines (PT, OT, and ST.) PT Problem 1 PT Problem #1 Knowledge Deficit PT Goal 1 Goal / Goal Update Pt to be IND with issued HEP Target Visit 10 PT Problem 2 PT Problem #2 Pain PT Goal 1 Goal / Goal Update 1. Pt to continue to report knee pain no greater than 3/10 in the last week. Target Visit 10 PT Problem 3 PT Problem #3 Impaired Gait PT Goal 1 Goal / Goal Update 1. Pt to improve 2 min walk distance from 100ft to 300ft. 2. Pt to improve stride length to clear stance leg 90% of the time. 3. Pt to report ambulating for 10 mins without a rest break. Target Visit 10 PT Problem 4 PT Problem #4 Impaired Strength PT Goal 1 Goal / Goal Update 1. Pt to improve ankle strength to grossly 4+/5 2. Pt to be able to perform 5xSTS without UE support. Target Visit 10 PT Problem 5 PT Problem #5 Impaired Balance PT Goal 1 Goal / Goal Update 1. Pt to improve Tinetti score from 13/28 to 20/28 . Target Visit 10
--- NOTE | 2024-06-21 10:10 | PTOPEVAL1 ---
Assessment and note entered by Cammy Medel, PT, DPT Evaluation Information Assessment Status Evaluation Diagnosis R TKA Other ICD-10 Condition Codes ( 05/16/24 PT) Subjective Information Pt had a R TKA on 05/16/24. He did 3 weeks of home health. He states he thinks he is doing pretty well so far. Pt is currently ambulating with a cane. Pt has been riding a stationary bike 2x/day and reports good compliance with his HEP. Pt is off all pain medication. reports a new history of urinary frequency and urgency. Pt enjoys fishing, camping, and riding his bike. Reported Pain Level Pain Score 2: Self Report Assessment PT Clinical Summary Pt presents to therapy today for his initial evaluation following a R TKA on 05/16/24. Today he demonstrates active knee ROM of 0-3-105. He demonstrates poor LE strength specifically in his hips and ankles emmy. He ambulates with a significantly decreased stride length, a shuffled gait, and a decreased gait speed. His gait speed and scores on the Tinetti and 5xSTS place him at a significantly increased risk for falls. He demonstrates functional limitations and weakness beyond the scope of his TKA. Skilled therapy services are indicated to minimize fall risk, to improve strength, and to return to PLOF. Plan of Care Interventions Electrical Stimulation,Gait Training,Hot Pack/Cold Pack,Manual Therapy,Neuro Re-education,Patient/ Caregiver Educati,Therapeutic Activities, Therapeutic Exercise PT Services Indicated Yes Treatment Frequency and 2x/wk for 10 visits Duration These treatments will address the objective and functional deficits as defined above. The patient will be advanced safely and appropriately in order for the patient to progress towards his/her prior level of function. Additional exercises will be introduced and as well as a comprehensive home exercise program upon discharge, if needed, ?to ensure carryover of functional gains achieved in the clinic. This treatment plan has been reviewed and agreement upon by the patient.
--- NOTE | 2024-07-25 09:45 | OPREHPOC ---
Outpatient Therapy Plan of Care This is a Multidisciplinary Plan of Care that may contain components documented by all disciplines (PT, OT, and ST.) PT Problem 1 PT Problem #1 Knowledge Deficit PT Goal 1 Goal / Goal Update Pt to be IND with issued HEP Target Visit 10 Progress Met PT Problem 2 PT Problem #2 Pain PT Goal 1 Goal / Goal Update 1. Pt to continue to report knee pain no greater than 3/10 in the last week. Target Visit 10 Progress Met PT Problem 3 PT Problem #3 Impaired Gait PT Goal 1 Goal / Goal Update 1. Pt to improve 2 min walk distance from 100ft to 300ft. 2. Pt to improve stride length to clear stance leg 90% of the time. 3. Pt to report ambulating for 10 mins without a rest break. 07/25/24: 1. progressing 250 ft 2. not met 3. not met Target Visit 10 PT Problem 4 PT Problem #4 Impaired Strength PT Goal 1 Goal / Goal Update 1. Pt to improve ankle strength to grossly 4+/5 2. Pt to be able to perform 5xSTS without UE support. 07/25/24: 1. progressing 2. met Target Visit 10 PT Problem 5 PT Problem #5 Impaired Balance PT Goal 1 Goal / Goal Update 1. Pt to improve Tinetti score from 13/28 to 20/28 . 07/25/24: met Target Visit 10 Progress Met
--- NOTE | 2024-07-25 09:45 | PTOPDC ---
Assessment and note entered by Cammy Medel, PT, DPT Evaluation Information Assessment Status Progress Diagnosis R TKA Other ICD-10 Condition Codes ( 05/16/24 PT) Subjective Information Pt states he is able to get along a lot better. He states the R knee is doing great. He states his L knee has gotten worse and it feels like his limiting factor at this point. He states he is doing his HEP daily at home. Reported Pain Level Pain Score 5,0: Self Report Assessment PT Clinical Summary Pt presents to therapy today following 10 visits of skilled therapy to treat his R TKA performed on 05/16/24. He continues to demonstrate decreased LE strength specifically in his hips and ankles emmy. His gait speed has improved but he continues to ambulate with a decreased stride length, a shuffled gait, and a decreased gait speed. He has met or progressed well towards his therapy goals. He will be d/c'ed from therapy at this time and will continue his HEP until his L TKA in the spring. Plan of Care PT Services Indicated No
== END 2024-07-25 12:39 | disposition home or self-care (01) ==
LOC: ANHGOSHPT 08:45
PROVIDERS: PCP Family Medicine; Visit Provider Orthopaedic Surgery
DX: Z47.1 Aftercare following joint replacement surgery (principal); Z96.651 Presence of right artificial knee joint
CPT/HCPCS: 97110; 97112; 97116; 97140; 97161; 97530; 97750

== ENCOUNTER 2024-08-10 08:46 | Outpatient (CLI) | payer MEDICARE, OTHER, SELFPAY ==
[2024-08-10 19:27] LABS: INR 1.9; Prothrombin Time 22.3 Seconds (11.1-14.7)
== END 2024-08-10 08:47 | disposition home or self-care (01) ==
LOC: ANHGOSHLAB 08:47
PROVIDERS: PCP Internal Medicine; Visit Provider Family Medicine
DX: Z79.01 Long term (current) use of anticoagulants (principal)
CPT/HCPCS: 36415; 85610

== ENCOUNTER 2024-10-20 08:57 | Outpatient (CLI) | payer MEDICARE, OTHER, SELFPAY ==
[2024-10-20 13:40] LABS: Hematocrit 45.3 % (42.0-52.0); Hemoglobin 14.1 g/dL (14.0-18.0); Mean Corpuscular HGB Conc 31.1 g/dl (32-36); Mean Corpuscular Hemoglobin 30.4 pg (26-34); Mean Corpuscular Volume 97.6 fl (80-100); Mean Platelet Volume 9.1 fl (7.4-10.4); Platelet Count Result 373 k/mm3 (150-375); Red Blood Count 4.64 M/mm3 (4.6-6.20); Red Cell Distribution Width 15.1 % (11.5-14.5); White Blood Count 9.7 K/mm3 (4.5-10.0)
[2024-10-20 13:52] LABS: Add Urine Microscopic? YES; Appearance Urine Clear (Clear); Bacteria Urine None Seen /hpf; Bilirubin Urine Negative (Negative); Blood Urine Negative (Negative); Color Urine Yellow (Yellow); Glucose Urine UA Negative (Negative); Ketones Urine Negative (Negative); Leukocyte Esterase Ur 1+ LEU/UL (Negative); Nitrate Urine Negative (Negative); Protein Urine Negative (Negative); RBC Urine 0-2 /hpf (0-2); Specific Grav Ur 1.013 (1.001-1.035); Squamous Epithelial Cell Urine None Seen /hpf (Few); Urobilinogen Urine 0.2 mg/dL (<2.0); pH Urine 6.5 (5.0-9.0)
[2024-10-20 14:28] LABS: Anion Gap 8 mmol/L (4-12); Blood Urea Nitrogen 43 mg/dL (9-20); Calcium 8.7 mg/dL (8.4-10.2); Carbon Dioxide 31 mmol/L (22-30); Chloride 99 mmol/L (98-107); Estimated Glomerular Filt Rate 54; Glucose 119 mg/dL (65-110); Sodium 138 mmol/L (137-145)
== END 2024-10-20 08:58 | disposition home or self-care (01) ==
PROVIDERS: PCP Internal Medicine; Visit Provider Orthopaedic Surgery
DX: R53.83 Other fatigue (principal); I10 Essential (primary) hypertension; R39.9 Unspecified symptoms and signs involving the genitourinary system; Z79.01 Long term (current) use of anticoagulants
CPT/HCPCS: 36415; 80048; 81001; 85025; 87086

== ENCOUNTER 2024-11-03 09:12 | Outpatient (RCR) | payer MEDICARE, OTHER, SELFPAY ==
[2024-08-22 14:28] LABS: INR 2.1; Prothrombin Time 23.9 Seconds (11.1-14.7)
[2024-09-12 13:48] LABS: INR 2.3; Prothrombin Time 25.6 Seconds (11.1-14.7)
[2024-10-09 12:19] LABS: INR 1.9
[2024-10-20 14:03] LABS: INR 1.9
[2024-11-03 13:50] LABS: INR 2.4; Prothrombin Time 26.8 Seconds (11.1-14.7)
== END 2024-11-20 23:59 | disposition home or self-care (01) ==
LOC: ANHGOSHLAB 09:12
PROVIDERS: PCP Internal Medicine; Visit Provider Internal Medicine Cardiovascular Disease
DX: I48.0 Paroxysmal atrial fibrillation (principal)
CPT/HCPCS: 36415; 85610

== ENCOUNTER 2024-11-08 08:46 | Outpatient (CLI) | payer MEDICARE, OTHER, SELFPAY ==
[2024-11-08 10:04] LABS: Basophils Percent Auto 0.6 % (0.2-1.2); Eosinophils Absolute Auto 0.4 K/mm3 (0-0.3); Eosinophils Percent Auto 6.2 % (0-4.4); Hematocrit 44.6 % (42.0-52.0); Immature Granulocyte Absolute 0.02 K/mm3 (0.00-0.031); Immature Granulocyte Percent A 0.3 % (0-0.5); Lymphocytes Absolute Auto 1.48 K/mm3 (0.9-3.2); Lymphocytes Percent Auto 22.3 % (18.3-44.2); Mean Corpuscular HGB Conc 31.4 g/dl (32-36); Mean Corpuscular Hemoglobin 30.7 pg (26-34); Mean Corpuscular Volume 97.8 fl (80-100); Mean Platelet Volume 9.3 fl (7.4-10.4); Monocytes Absolute Auto 0.6 K/mm3 (0.1-0.6); Monocytes Percent Auto 8.6 % (2.6-8.5); Neutrophils Absolute Auto 4.1 K/mm3 (1.3-6.7); Platelet Count Result 201 k/mm3 (150-375); Red Blood Count 4.56 M/mm3 (4.6-6.20); Red Cell Distribution Width 14.9 % (11.5-14.5); White Blood Count 6.6 K/mm3 (4.5-10.0)
[2024-11-08 10:17] LABS: Partial Thromboplastin Time 32.9 Seconds (22.3-36.8)
[2024-11-08 10:21] LABS: Urine Cotinine NEGATIVE
[2024-11-08 10:24] LABS: Albumin Level 4.3 g/dL (3.5-5.1)
[2024-11-08 11:16] LABS: MRSA (PCR) NOT DETECTED (NOT DETECTE)
== END 2024-11-08 08:47 | disposition home or self-care (01) ==
LOC: ANHSURGERY 08:55
PROVIDERS: PCP Internal Medicine; Visit Provider Orthopaedic Surgery
DX: Z01.812 Encounter for preprocedural laboratory examination (principal); M17.12 Unilateral primary osteoarthritis, left knee
CPT/HCPCS: 80307; 82040; 83036; 85025; 85730; 86850; 86900; 86901; 87641

== ENCOUNTER 2024-11-21 00:13 | Day surgery (SDC) | payer MEDICARE, OTHER, SELFPAY ==
[2024-11-08 09:07] VITALS: BP 128/62; PULSE 62; RESP 16; TEMP 36.6; O2SAT 97; BMI 26.6
--- NOTE | 2024-11-08 09:29 | PC.NURSE ---
Report to the Outpatient Waiting Room, entrance under the green pavilion located off [facility], at time _1000am on date ___11/21/24____. Planned Procedure Time: _1200 .? Time changes happen often and if your time is changed the preop area will call you the afternoon before. - You and your visitor will be asked to self-screen and do not enter if you have any COVID symptoms. Please call surgeon if you need to reschedule. - A mask is optional within the hospital at this time. Patients may have clear liquids (water, carbonated beverages, clear teas, apple juice) until 3 hours prior to surgery with a maximum of 20 ounces. - No food from midnight until time of surgery and no smoking, or chewing tobacco (or any form of nicotine). No chewing gum, candy or mints. (0900am) Take only the following medications with a SIP of water on the morning of surgery: _Metoprolol and Tylenol if needed DO NOT STOP ANY OF YOUR OTHER PRESCRIPTION MEDICATIONS PRIOR TO SURGERY EXCEPT THE FOLLOWING Medications to discontinue per physician Coumadin [address] Treviño Date to take last dose___11/15/24 Please no make-up, nail maltese, hairspray, perfume, deodorant, or body powder the day of surgery.? No jewelry (including any body piercings) or valuables the day of surgery, leave them at home.? Please take a shower or bath the night before, or the morning of, surgery with an antibacterial soap.?HIBICLEANSE Wear comfortable, loose fitting clothing.? - Jewelry must be removed prior to entering the operating room.? Rings and piercings that are not removed may be cut off. - The hospital will not accept responsibility for valuables.? - Please leave all valuables, including medications, at home the day of surgery. If you are going home after surgery, a licensed vacuum truck driver must drive you home.? - NO public transportation without another adult if you receive anesthesia. - We recommend that an adult stay with you for 24 hours following discharge. - We also recommend that you do not drive, make important decision, drink alcoholic beverages, or take any drugs that were not prescribed by your health care provider for at least 24 hours after your discharge time. Follow any additional instructions given to you from your surgeon. Telephone instructions given to ___Patient and asked if any additional questions and then verbalized understanding. Patient advised to call surgeon office or pre surgery nurse liaison [phone] if any additional questions.
[2024-11-21] VITALS (12 sets, daily range): BP systolic 101–153; BP diastolic 56–78; PULSE 57–82; RESP 14–20; TEMP 36.4–36.8; O2SAT 90–100
--- NOTE | ~2024-11-21 | XR_ITS ---
EXAMINATION: [id number] DATE: 11/21/2024 15:13 INDICATION: Postoperative evaluation following left total knee arthroplasty. TECHNIQUE: Anteroposterior and lateral views of the left knee were obtained. COMPARISON: 09/04/2024 FINDINGS: Left total knee arthroplasty without patellar resurfacing appears well seated and in near anatomic al ignment. Small lump of intramedullary cement in the distal femoral diaphysis. No fractures identified . Anterior skin gary and expected postoperative subcutaneous, intramedullary and intra-articular g as. IMPRESSION: 1. Left total knee arthroplasty without patellar resurfacing, negative for postoperative purposes. Reviewed, dictated and finalized at location B. IMPRESSION: 1. Left total knee arthroplasty without patellar resurfacing, negative for post operative purposes.
[2024-11-21] MEDS: LACTATED RINGERS 1,000 ML 30 ML IV CONT ×2 (10:20→14:57)
[2024-11-21] MEDS: TRANEXAMIC ACID 1,000MG/ISO100 1,000 MG/100 ML BAG 200 MG IVPB (10:20)
[2024-11-21 10:50] LABS: INR 1.3; Prothrombin Time 16.4 Seconds (11.1-14.7)
--- NOTE | 2024-11-21 11:12 | WPDHPUPDATE1 ---
History and Physical Update Update Date/Time: 11/21/24 11:12 History and Physical has been reviewed, including an updated exam of the patient. There are NO changes in the patient's condition. Risks, benefits, and alternatives have been discussed and questions answered. Patient agrees to proceed with procedure.
--- NOTE | 2024-11-21 12:30 | WPDANESEPPF ---
Anes - Initial Pre Proc Eval Procedure: Operation Date: 11/21/24 12:00 Proposed Procedures p Left Total Knee Arthroplasty - Dima Treviño MD Date/Time: 11/21/24 12:30 Surgeon: Dima Treviño MD Pre Op Diagnosis: left knee djd Patient Data Age: 84 Gender: M Height: 1.73 m Weight: 76 kg Last Vital Signs Temp 98.2 F 11/21/24 09:48 Pulse 68 11/21/24 09:48 Resp 18 11/21/24 09:48 BP 153/62 H 11/21/24 09:48 Pulse Ox 99 11/21/24 09:48 O2 Del Method Room Air 11/21/24 09:48 Allergies Allergy/AdvReac Type Severity Reaction Status Date / Time No Known Allergies Allergy Verified 11/21/24 10:37 Home Medications ?Medication ?Instructions ?Recorded ?Confirmed ?Type acetaminophen 500 mg tablet 500 mg PO Q6H PRN Pain 11/17/22 11/21/24 History (Tylenol Extra Strength) lisinopril 20 mg tablet 20 mg PO DAILY #90 tabs 07/12/24 11/21/24 Rx metoprolol succinate 25 mg 25 mg PO DAILY #90 tabs 07/26/24 11/21/24 Rx tablet,extended release 24 hr (Toprol XL) allopurinol 300 mg tablet 300 mg PO HS #90 tabs 08/02/24 11/21/24 Rx warfarin 1 mg tablet See Rx Instructions .Route 08/23/24 11/21/24 Rx .COMPLEX #30 tabs finasteride 5 mg tablet See Rx Instructions .Route 09/07/24 11/21/24 Rx .COMPLEX #30 tabs tamsulosin 0.4 mg capsule See Rx Instructions .Route 09/07/24 11/21/24 Rx .COMPLEX #30 caps warfarin 3 mg tablet See Rx Instructions .Route 10/27/24 11/21/24 Rx .COMPLEX #30 tabs Laboratory Tests 11/21/24 10:20 PT 16.4 H Seconds (11.1-14.7) INR 1.3 Patient hx anesthesia problems: none Family hx anesthesia problems: none Results Review: All pre-operative results and documents have been reviewed as part of the pre-operative evaluation. FOR[facility], [facility] Past Medical History Medical History Chronic anticoagulation Other fatigue Right knee DJD Left knee DJD BPH (benign prostatic hyperplasia) Prostatitis Gastritis Abdominal aneurysm Hyperbilirubinemia Gout Weakness Rhabdomyolysis Immunization counseling Screening, lipid Essential (primary) hypertension Gout, unspecified Surgical History Surgical History S/P total knee arthroplasty Status post right knee replacement (~05/2024) Family History Family History Sibling Hypertension Mother Family history of Alzheimer's disease Social History Social History Social History: Caffeine- rarely Smoking packs per day: 1 Smoking cigarettes per day: 20.0 Years smoked: 20 Smoking pack-years: 20.00 Smoking status: Former smoker Tobacco type: cigarettes Second hand tobacco smoke exposure: No Additional smoking assessment comments: at least 20 years ago Alcohol intake: never Substance use: never Substance use type: does not use Do You Feel Safe in your Home?: Yes Lack of Transportation: No Lack of Food: Never True Current Housing: I Have Housing Concerned About Future Housing: No Difficulty Paying Gas/Electric Bills: No Difficulty Paying for Meds: No Currently Unemployed: No Education: High School Diploma/GED Difficulty w/ Childcare or Family Care: No Living arrangements: with family Additional living arrangements comments: Occupation/Education: retired Sexual Orientation (if Verbalized by the Patient): Straight or Heterosexual Spiritual care concerns: No Anes - Eval Final PreProcedure Day of Procedure 11/21/24 12:30 Patient weight: normal Lungs: normal air movement Airway: Mallampati scale class II and special considerations (Missing many teeth on the upper aspect. ) Neurological: alert and oriented Last oral intake: >/= 8 hours ASA classification: III Emergent: no Anesthetic plan: proceed Anesthesia type and monitoring: general LMA and standard monitoring Results Review: All pre-operative results and documents have been reviewed as part of the pre-operative evaluation. HTN, ex smoker, quit approx 1999, COPD, ECHO 02/2024 w nml LVEF. Note from Dr Jos robin. Informed Consent: The patient's anesthetic plan and its attendant risks and benefits were discussed with the patient/family/POA. Questions were solicited and answers provided to the satisfaction of the patient/family/POA.
--- NOTE | 2024-11-21 12:51 | WPDANESPNB ---
Anes - Peripheral Nerve Block Date/Time: 11/21/24 12:51 I have discussed with the patient/family/POA the placement of a peripheral nerve block for post-operative pain management, including associated risks, benefits, complications, and side effects. Alternative methods of post-operative analgesia were detailed. Questions were solicited and answers provided to the satisfaction of the patient/family/POA. Time-Out: A pre-procedural Time-Out was completed immediately before starting the procedure and confirmed: Patient Identification, Site, Procedure, Patient Position and the Availability of Requisite Equipment. Clinical Indications: Acute post-operative pain management requested by the operative surgeon. Nerve Block Insertion Note Anes-nerve block: adductor canal left Patient position: supine Skin prep: chlorhexidine Needle: 22 gauge, stimulating, insulated echogenic needle. Needle length: 80 mm Technique: ultrasound Injectate: other (Bupiv 0.5% 10 mls. ) Observations: tolerated well Complications: none Procedure start time:: 1240 Procedure end time:: 124
[2024-11-21] MEDS: ceFAZolin 2 GM/D5W 50 ML 2 GM/50 ML BAG IVPB ×2 (13:04→20:04)
[2024-11-21] MEDS: SODIUM CHLORIDE 0.9% IV 37.7 ML, MORPHINE SULFATE INJ (*CRX) 2 MG, ROPivacaine HCL 1% 2... INFILTRATE (13:47)
[2024-11-21] MEDS: TRANEXAMIC ACID 1,000 MG/10 ML AMPUL 1000 MG IV PUSH (14:11)
--- NOTE | 2024-11-21 14:44 | W.PM.PROC2 ---
Procedure Note - Detailed Date of Procedure 11/21/24 Pre-op Diagnosis left knee djd Post-op Diagnosis Same Procedure Performed LEFT TKA Surgeon Dima Treviño MD Anesthesia General Description of Procedure THE LEFT KNEE WAS PREPPED AND DRAPED IN THE STERILE FASHION. THERE WAS A 10 DEGREE FLEXION CONTRACTURE. A MIDLINE SKIN INCISION WAS MADE. A MEDIAL PARAPATELLAR ARTHROTOMY WAS MADE. THE PATELLA WAS EVERTED. THERE WAS TRICOMPARTMENT DJD. THERE WAS MINIMAL PATELLA DJD. AN INTRAMEDULLARY UGO WAS PLACED IN THE FEMUR. A DISTAL FEMORAL CUT WAS MADE IN 5 DEGREES OF VALGUS REMOVING APPROXIMATELY 9 MM OF BONE FROM THE DISTAL FEMUR. THE FEMUR WAS SIZED TO 67.5. A 67.5 FEMORAL CUTTING BLOCK WAS PLACED IN 3 DEGREES OF EXTERNAL ROTATION AND IN ALIGNMENT WITH STEVE'S LINE AND THE TRANSEPICONDYLAR AXIS. ANTERIOR POSTERIOR AND CHAMFER CUTS WERE MADE. THE CUTS WERE EXCELLENT. NEXT AN INTRAMEDULLARY CUTTING GUIDE WAS PLACED IN THE TIBIA. A TRANS TIBIAL CUT WAS MADE ALONG THE LONG AXIS OF THE TIBIA. APPROXIMATELY 10 MM OF BONE WAS REMOVED FROM THE HIGH SIDE OF THE TIBIA. THE TIBIA WAS THEN PLANED TO A SMOOTH SURFACE. POSTERIOR FEMORAL OSTEOPHYTES WERE REMOVED FROM THE FEMORAL CONDYLES. A 75 TIBIAL TRIAL WAS PLACED IN ALIGNMENT WITH THE 1/3 MEDIAL ASPECT OF THE TIBIAL TUBERCLE. THEN A 67.5 FEMORAL TRIAL COMPONENT WAS PLACED. BOTH HAD EXCELLENT FITS. EVENTUALLY AN 10 MM POLYETHYLENE TRIAL COMPONENT WAS PLACED. THE KNEE WAS TAKEN THROUGH A RANGE OF MOTION. THE KNEE CAME OUT TO FULL EXTENSION. THERE WAS NO ABNORMAL TILT TO THE PATELLA. THERE WAS GOOD A/P AND VARUS/VALGUS STABILITY. THERE WAS NO EXCESSIVE ROLL BACK WITH FLEXION. THE TRIAL COMPONENTS WERE REMOVED. THEN A 67.5 FEMORAL COMPONENT AND 75 TIBIAL COMPONENT WITH AN 10 POLYETHYLENE COMPONENT WERE CEMENTED INTO PLACE. ONCE THE CEMENT WAS HARD THE KNEE WAS TAKEN THROUGH A ROM AGAIN AND FOUND TO BE STABLE WITH NO PATELLA TILT NO EXCESSIVE ROLL BACK WITH FLEXION AND GOOD STABILITY WITH COMPLETE AND FULL EXTENSION. THE KNEE WAS IRRIGATED WITH STERILE BETADINE AND WATER FOR ABOUT 3 MINUTES. THE BLEEDERS WERE CAUTERIZED. THE ARTHROTOMY WAS REPAIRED WITH NUMBER 1 VICRYL AND 2 QUIL. THE SUB CUTANEOUS LAYER WITH 2-0 VICRYL AND THE SKIN WITH CODI. THE WOUND WAS WASHED AND A STERILE DRESSING WAS APPLIED. PATIENT WAS EXTUBATED. Estimated Blood Loss -150.0 Pathology None sent Complications No immediate complications Condition Stable Disposition PACU
--- NOTE | 2024-11-21 16:27 | ADMGEN ---
This patient, Sachin Mast, was admitted to -. Patient/family oriented to hospital policies and general routines including ID bracelet, bed and alarms, visiting hours, pain management, procedures, bathroom and other care routines, personal items, smoking policy, room service/diet, and visiting hours. Information on how to activate the Rapid Response Team has been discussed. Patient/Family are encouraged to report perceived risks to care and to ask questions if they do not understand what they are told or what they should do.
[2024-11-21] MEDS: CELECOXIB 200 MG CAPSULE PO (17:08)
[2024-11-21] MEDS: allopurinoL 300 MG TABLET PO (20:05)
[2024-11-21] MEDS: FAMOTIDINE 20 MG TABLET PO (20:05)
[2024-11-22 01:27] VITALS: BP 144/66; PULSE 80; RESP 20; TEMP 36.7; O2SAT 96
[2024-11-22] MEDS: ceFAZolin 2 GM/D5W 50 ML 2 GM/50 ML BAG IVPB ×2 (04:37→12:23)
[2024-11-22 05:01] VITALS: BP 127/63; PULSE 85; RESP 20; TEMP 37.1; O2SAT 92
[2024-11-22 05:10] LABS: Basophils Percent Auto 0.5 % (0.2-1.2); Eosinophils Absolute Auto 0.2 K/mm3 (0-0.3); Eosinophils Percent Auto 2.1 % (0-4.4); Hematocrit 33.4 % (42.0-52.0); Hemoglobin 10.4 g/dL (14.0-18.0); Immature Granulocyte Absolute 0.04 K/mm3 (0.00-0.031); Immature Granulocyte Percent A 0.5 % (0-0.5); Lymphocytes Absolute Auto 1.41 K/mm3 (0.9-3.2); Lymphocytes Percent Auto 16.8 % (18.3-44.2); Mean Corpuscular HGB Conc 31.1 g/dl (32-36); Mean Corpuscular Hemoglobin 30.8 pg (26-34); Mean Corpuscular Volume 98.8 fl (80-100); Mean Platelet Volume 8.8 fl (7.4-10.4); Monocytes Absolute Auto 0.9 K/mm3 (0.1-0.6); Neutrophils Absolute Auto 5.8 K/mm3 (1.3-6.7); Neutrophils Percent Auto 69.1 % (45.5-73.1); Platelet Count Result 300 k/mm3 (150-375); Red Blood Count 3.38 M/mm3 (4.6-6.20); Red Cell Distribution Width 14.9 % (11.5-14.5); White Blood Count 8.4 K/mm3 (4.5-10.0)
[2024-11-22 05:22] LABS: Anion Gap 5 mmol/L (4-12); Blood Urea Nitrogen 30 mg/dL (9-20); Carbon Dioxide 32 mmol/L (22-30); Chloride 103 mmol/L (98-107); Estimated CRCL calculation 40 ml/min; Estimated Glomerular Filt Rate 57; Glucose 109 mg/dL (65-110); INR 1.3; Potassium 4.9 mmol/L (3.4-5.0); Sodium 140 mmol/L (137-145)
[2024-11-22 08:00] VITALS: BP 140/66; PULSE 93; RESP 19; TEMP 37.1; O2SAT 92
[2024-11-22 08:23] VITALS: BP 142/69; PULSE 97
[2024-11-22] MEDS: CELECOXIB 200 MG CAPSULE PO (08:24)
[2024-11-22] MEDS: FAMOTIDINE 20 MG TABLET PO (08:26)
[2024-11-22 08:27] VITALS: PULSE 97
[2024-11-22] MEDS: METOPROLOL SUCCINATE EXT REL 25 MG TABCR PO (08:27)
[2024-11-22] MEDS: oxyCODONE/ACETAMINOPHEN (*CRX) 5-325 MG TABLET 1 TABLET PO (10:57)
--- NOTE | 2024-11-22 12:31 | P.PNOP_ITS ---
Progress Note: A&P Assessment and Plan (1) S/P total knee arthroplasty: Qualifiers: Laterality: right Qualified Code(s): Z96.651 - Presence of right artificial knee joint Code(s): Z96.659 - Presence of unspecified artificial knee joint Status: Acute Assessment and Plan: POD 1 DOING WELL. OK TO DC HOME F/U IN 3 WEEKS. Subjective Subjective Date/Time Seen: 11/22/24 12:31 Interval history: POD 1 DOING WELL. GOOD PROGRESS WITH PT. NO CALF PAIN Exam Extrem: Other: VSS AFEBRILE DRESSING DRY NV INTACT NEG HOMANS SIGN CALF AND THIGH SOFT NON TENDER Objective Data Vital Signs Vital Signs: Vital Signs - 24 hr 11/21/24 14:57 11/21/24 15:00 11/21/24 15:15 Temperature 36.5 C Pulse Rate 81 71 70 Respiratory Rate 16 14 14 Blood Pressure 114/65 138/78 131/75 Pulse Oximetry 100 100 100 Oxygen Delivery Simple Face Mask Simple Face Mask Simple Face Mask Oxygen Flow Rate 10 10 10 11/21/24 15:30 11/21/24 15:45 11/21/24 16:00 Temperature Pulse Rate 71 57 L 61 Respiratory Rate 18 14 18 Blood Pressure 140/75 143/72 H 130/69 Pulse Oximetry 100 96 95 Oxygen Delivery Room Air Room Air Room Air Oxygen Flow Rate 11/21/24 16:20 11/21/24 16:34 11/21/24 16:35 Temperature 36.4 C 36.4 C Pulse Rate 72 71 Respiratory Rate 17 17 Blood Pressure 121/66 128/61 Pulse Oximetry 92 90 Oxygen Delivery Room Air Oxygen Flow Rate 11/21/24 17:05 11/21/24 18:05 11/21/24 20:34 Temperature 36.4 C 36.4 C 36.6 C Pulse Rate 77 82 79 Respiratory Rate 18 18 20 Blood Pressure 132/60 101/57 L 116/56 L Pulse Oximetry 97 92 95 Oxygen Delivery Oxygen Flow Rate 11/22/24 01:27 11/22/24 05:01 11/22/24 08:00 Temperature 36.7 C 37.1 C Pulse Rate 80 85 Respiratory Rate 20 20 Blood Pressure 144/66 H 127/63 Pulse Oximetry 96 92 Oxygen Delivery Room Air Oxygen Flow Rate 11/22/24 08:00 11/22/24 08:23 11/22/24 08:27 Temperature 37.1 C Pulse Rate 93 97 97 Respiratory Rate 19 Blood Pressure 140/66 142/69 H Pulse Oximetry 92 Oxygen Delivery Oxygen Flow Rate 11/22/24 08:46 11/22/24 11:19 Temperature Pulse Rate Respiratory Rate Blood Pressure Pulse Oximetry Oxygen Delivery Room Air Room Air Oxygen Flow Rate Intake/Output Intake/Output: Intake & Output 11/19/24 11/20/24 11/21/24 11/22/24 23:59 23:59 23:59 23:59 Intake Total 540 680 Output Total 700 Balance 540 -20 Meds/Results Medications: Active Medications Generic Name Dose Route Start Last Admin Trade Name Freq PRN Reason Stop Dose Admin Allopurinol 300 mg 11/21/24 21:00 11/21/24 20:05 Allopurinol 300 Mg Tablet PO 300 mg HS PETEY Administration Celecoxib 200 mg 11/21/24 17:00 11/22/24 08:24 Celecoxib 200 Mg Capsule PO 200 mg BIDWM PETEY Administration Diazepam 5 mg 11/21/24 16:09 Diazepam (*Crx) 5 Mg Tablet PO Q8H PRN Spasms Diphenhydramine HCl 25 mg 11/21/24 16:09 Diphenhydramine Hcl Inj 50 Mg/Ml Vial IV PUSH Q6H PRN Itching Famotidine 20 mg 11/21/24 21:00 11/22/24 08:26 Famotidine 20 Mg Tablet PO 20 mg Q12HR PETEY Administration Finasteride 5 mg 11/22/24 09:00 Finasteride 5 Mg Tablet BY MOUTH DAILY PETEY Hydromorphone HCl 1 mg 11/21/24 16:09 Hydromorphone Hcl Inj (*Crx) 1 Mg/Ml Syr IV PUSH Q2H PRN Breakthrough Pain Rated 7-10 or NPO Hydromorphone HCl 0.5 mg 11/21/24 16:09 Hydromorphone Hcl Inj (*Crx) 1 Mg/Ml Syr IV PUSH Q2H PRN Breakthrough Pain Rated 4-6 or NPO Cefazolin Sodium 2 gm in 50 mls @ 100 mls/hr 11/21/24 21:00 11/22/24 12:23 Ancef 2 Gm/D5w 50 Ml IVPB 11/22/24 13:29 100 mls/hr Q8H PETEY Administration Ibuprofen 800 mg in 200 mls @ 400 mls/hr 11/21/24 16:09 Caldolor 800 Mg/200 Ml IVPB Q6H PRN Breakthrough Pain Rated 1-3 or NPO Lisinopril 20 mg 11/22/24 09:00 Lisinopril 20 Mg Tablet PO DAILY [facility] Metoprolol Succinate 25 mg 11/22/24 09:00 11/22/24 08:27 Metoprolol Succinate Ext Rel 25 Mg Tabcr PO 25 mg DAILY [facility] Administration Naloxone HCl 0.1 mg 11/21/24 16:09 Naloxone Hcl 0.4 Mg/Ml Vial IV PUSH Q2M PRN Opiate Reversal Ondansetron HCl 4 mg 11/21/24 16:09 Ondansetron Inj 4 Mg/2 Ml Vial IV PUSH Q4H PRN Nausea And Vomiting Oxycodone/Acetaminophen 1 tablet 11/21/24 16:09 11/22/24 10:57 Oxycodone/Acetaminophen (*Crx) 5-325 Mg Tablet PO 1 tablet Q4H PRN Administration Pain Rated 4-6 Oxycodone/Acetaminophen 1 tab 11/21/24 16:09 Oxycodone/Acetaminophen (*Crx) 10-325 Mg Tablet PO Q6H PRN Pain Rated 7-10 Polyethylene Glycol 17 gm 11/22/24 09:00 11/22/24 08:28 Polyethylene Glycol 3350 17 Gm Powd.Pack PO Not Given QAM [facility] Senna/Docusate Sodium 2 tab 11/21/24 21:00 11/22/24 08:25 Senna/Docusate Sodium Tablet PO Not Given Q12HR [facility] Tamsulosin HCl 0.4 mg 11/22/24 09:00 Tamsulosin Hcl 0.4 Mg Capsule BY MOUTH DAILY [facility] Warfarin Sodium 1 mg 11/22/24 17:00 Warfarin (*Pbkc) 1 Mg Tablet BY MOUTH DAILY@1700 [facility] Warfarin Sodium 3 mg 11/22/24 17:00 Warfarin (*Pbkc) 3 Mg Tablet BY MOUTH DAILY@1700 [facility] Radiology Results: ITS Impressions Knee X-Ray 11/21/24 15:19 IMPRESSION: 1. Left total knee arthroplasty without patellar resurfacing, negative for postoperative purposes. Labs Labs: Laboratory Results - last 24 hr 11/22/24 04:39 WBC 8.4 RBC 3.38 L Hgb 10.4 L D Hct 33.4 L MCV 98.8 MCH 30.8 MCHC 31.1 L RDW 14.9 H Plt Count 300 MPV 8.8 Immature Gran % (Auto) 0.5 Neut % (Auto) 69.1 Lymph % (Auto) 16.8 L Bertie % (Auto) 11.0 H Eos % (Auto) 2.1 Baso % (Auto) 0.5 Lymph # (Auto) 1.41 Bertie # (Auto) 0.9 H Eos # (Auto) 0.2 Baso # (Auto) 0.0 Abs Immat Gran (auto) 0.04 H Absolute Neuts (auto) 5.8 Absolute Nucleated RBC 0.000 Nucleated RBC % 0.0 PT 17.0 H INR 1.3 Sodium 140 Potassium 4.9 Chloride 103 Carbon Dioxide 32 H Anion Gap 5 BUN 30 H D Creatinine 1.22 Estim Creat Clear Calc 40 Estimated GFR 57 L Glucose 109 Calcium 8.0 L
== END 2024-11-22 14:55 | disposition home health service (06) ==
LOC: ANHSURGERY 09:34 → ANH2MED 16:27
PROVIDERS: Anesthesiology; PCP Internal Medicine; Visit Provider Orthopaedic Surgery
PROC: (CPT 27447; principal; 2024-11-21 12:00)
DX: M17.12 Unilateral primary osteoarthritis, left knee (principal); G89.18 Other acute postprocedural pain; I48.0 Paroxysmal atrial fibrillation; I71.40 Abdominal aortic aneurysm, without rupture, unspecified; G89.29 Other chronic pain; N40.0 Benign prostatic hyperplasia without lower urinary tract symptoms; I10 Essential (primary) hypertension; Z79.01 Long term (current) use of anticoagulants; Z87.891 Personal history of nicotine dependence
CPT/HCPCS: 27447; 64447; 36415; 73560; 80048; 85025; 85610; 97110; 97116; 97161; 97165; 97530; A9270; C1713; C1776; J0171; J0690; J1885; J2003; J2270; J2405; J2704; J2795; J3010; J3370; J7120

== ENCOUNTER 2024-11-30 12:29 | Outpatient (NON) | payer MEDICARE, OTHER, SELFPAY ==
[2024-11-30 14:20] LABS: INR 2.2; Prothrombin Time 24.5 Seconds (11.1-14.7)
== END 2024-11-30 12:30 | disposition home or self-care (01) ==
LOC: HOMEHLTHV 12:34
PROVIDERS: PCP Internal Medicine; Referring Provider Internal Medicine Cardiovascular Disease; Visit Provider Orthopaedic Surgery
DX: I48.21 Permanent atrial fibrillation (principal); Z47.1 Aftercare following joint replacement surgery; Z96.652 Presence of left artificial knee joint
CPT/HCPCS: 36415; 85610

== ENCOUNTER 2025-01-12 14:00 | Outpatient (RCR) | payer MEDICARE, OTHER, SELFPAY ==
--- NOTE | 2024-12-19 11:12 | OPREHPOC ---
Outpatient Therapy Plan of Care This is a Multidisciplinary Plan of Care that may contain components documented by all disciplines (PT, OT, and ST.) PT Problem 1 PT Problem #1 Knowledge Deficit PT Goal 1 Goal / Goal Update [place] with HEP Target Visit 4 PT Goal 2 Goal / Goal Update Report no pain greater than 2/10 for 2 consecutive weeks Target Visit 8 PT Problem 2 PT Problem #2 Impaired Range of Motion PT Goal 1 Goal / Goal Update 1. Achieve terminal left knee extension to normalize gait 2. Improve Left knee flexion ROM to 125 degrees to improve foot clearance and ADLs Target Visit 8 PT Problem 3 PT Problem #3 Impaired Strength PT Goal 1 Goal / Goal Update 1. Improve gross left knee strength to 5/5 to improve stability with ADL and squatting function PT Problem 4 PT Problem #4 Impaired Gait PT Goal 1 Goal / Goal Update 1. Ambulate with even stride length bilaterally and use of single point cane in right UE Target Visit 8
--- NOTE | 2024-12-19 11:12 | PTOPEVAL1 ---
Assessment and note entered by James Madrigal, PT Evaluation Information Assessment Status Evaluation Diagnosis S/P TKA left 11/21/24 ICD-10 Condition Codes (PT) Pain in left knee M25.562 Onset 11/21/24 Subjective Information Reports that overall he feels he is doing well. Just finished up with home health and recently moved off of the walker. He has been sleeping well and denies significant issues getting around the house. He has been riding a stationary bike at home for about 15-45 min a day. Reports that knee is very stiff first thing in the morning when he starts to move it. Patient has not been taking pain medication as he hasn't felt as if he needs it. Reported Pain Level Pain Score 4: Self Report Assessment PT Clinical Summary Patient presents with signs and symptoms consistent with post operative total knee arthroplasty. Patient presents with bi-directional ROM loss, altered gait, weakness, and swelling. He will benefit forms killed therapy to address these deficits to promote improved gross functional mobility and gait. Plan of Care Interventions Gait Training,Manual Therapy,Neuro Re-education, Therapeutic Activities,Therapeutic Exercise PT Services Indicated Yes Treatment Frequency and 2x/week for 8 visits Duration These treatments will address the objective and functional deficits as defined above. The patient will be advanced safely and appropriately in order for the patient to progress towards his/her prior level of function. Additional exercises will be introduced and as well as a comprehensive home exercise program upon discharge, if needed, ?to ensure carryover of functional gains achieved in the clinic. This treatment plan has been reviewed and agreement upon by the patient.
--- NOTE | 2025-01-12 14:35 | PTOPDC ---
Assessment and note entered by James Madrigal, PT Evaluation Information Assessment Status Discharge Diagnosis S/P TKA left 11/21/24 ICD-10 Condition Codes (PT) Pain in left knee M25.562 Onset 11/21/24 Subjective Information Reports that overall he feels he is getting around well. Not using the cane in the house but still does for distances. Reports that he still gets some stiffness if he sits too long but overall he is doing a lot better. Reported Pain Level Pain Score 2: Self Report Assessment PT Clinical Summary Patient has met all goals for therapy and is suitable for discharge to [facility] At this time. No concerns with objective measures and will continue to build functional strength as part of [facility]. Plan of Care PT Services Indicated Yes
== END 2025-01-12 15:41 | disposition home or self-care (01) ==
LOC: ANHGOSHPT 14:00
PROVIDERS: PCP Internal Medicine; Visit Provider Orthopaedic Surgery
DX: Z47.1 Aftercare following joint replacement surgery (principal); Z96.653 Presence of artificial knee joint, bilateral
CPT/HCPCS: 97110; 97140; 97161; 97530

== ENCOUNTER 2025-02-23 07:56 | Outpatient (CLI) | payer MEDICARE, OTHER, SELFPAY ==
[2025-02-23 11:54] LABS: Hematocrit 45.2 % (42.0-52.0); Hemoglobin 13.8 g/dL (14.0-18.0); Immature Granulocyte Percent A 0.3 % (0-0.5); Lymphocytes Absolute Auto 2.09 K/mm3 (0.9-3.2); Mean Corpuscular HGB Conc 30.5 g/dl (32-36); Mean Corpuscular Hemoglobin 29.7 pg (26-34); Mean Corpuscular Volume 97.2 fl (80-100); Nucleated Red Blood Cells Absolute Auto 0.000 K/mm3 (0.0-0.012); Nucleated Red Blood Cells Perc 0.0 % (0.0-0.2); Platelet Count Result 245 k/mm3 (150-375); Red Blood Count 4.65 M/mm3 (4.6-6.20); White Blood Count 6.4 K/mm3 (4.5-10.0)
[2025-02-23 12:04] LABS: INR 2.9; Prothrombin Time 29.0 Seconds (11.1-14.7)
[2025-02-23 12:07] LABS: Alanine Aminotransferase 14 U/L (6-50); Albumin Level 4.0 g/dL (3.5-5.1); Alkaline Phosphatase 57 U/L (38-126); Anion Gap 7 mmol/L (4-12); Aspartate Amino Transferase 45 U/L (17-59); Bilirubin,Total 0.7 mg/dL (0.2-1.3); Blood Urea Nitrogen 36 mg/dL (9-20); Calcium 8.9 mg/dL (8.4-10.2); Carbon Dioxide 27 mmol/L (22-30); Chloride 106 mmol/L (98-107); Cholesterol 164 mg/dL (0-200); Estimated Glomerular Filt Rate 60; Glucose 98 mg/dL (65-110); HDL Direct 35 mg/dL; Potassium 4.6 mmol/L (3.4-5.0); Sodium 140 mmol/L (137-145); Total Protein 7.3 g/dL (6.3-8.2); Triglycerides 152 mg/dL (<150)
[2025-02-23 12:43] LABS: Prostate Specific Antigen 1.8 ng/mL (< OR = 4.0)
[2025-02-23 13:08] LABS: MALB Creatinine Ratio 717.4 mg/g (0-30)
[2025-02-23 15:09] LABS: Hemoglobin A1C 5.9 % (<5.7)
== END 2025-02-23 07:57 | disposition home or self-care (01) ==
PROVIDERS: PCP Internal Medicine; Visit Provider Clinical Nurse Specialist
DX: I10 Essential (primary) hypertension (principal); I48.0 Paroxysmal atrial fibrillation; I71.40 Abdominal aortic aneurysm, without rupture, unspecified; Z79.01 Long term (current) use of anticoagulants; E80.6 Other disorders of bilirubin metabolism; N40.1 Benign prostatic hyperplasia with lower urinary tract symptoms; R39.14 Feeling of incomplete bladder emptying; R53.1 Weakness; R53.83 Other fatigue; R73.01 Impaired fasting glucose
CPT/HCPCS: 36415; 80053; 80061; 82043; 83036; 84153; 85025; 85610

== ENCOUNTER 2025-02-27 08:33 | Outpatient (CLI) | payer MEDICARE, OTHER, SELFPAY ==
--- NOTE | ~2025-02-27 | US_ITS ---
EXAMINATION: US aorta DATE: 02/27/2025 08:54 INDICATION: Abdominal aortic aneurysm TECHNIQUE: Grayscale, color Doppler, and pulsed Doppler images of the aorta and common iliac arteries were obtained. COMPARISON: CT dated 10/07/2022 FINDINGS: The proximal aorta measures 2.1 cm. The mid aorta measures 2.1 cm. The there is a fusiform abdominal aortic aneurysm of the distal aorta which measures up to 3.9 cm maximal AP diameter.. The right commo n iliac artery measures 1.4 cm. The left common iliac artery measures 1.5 cm. IMPRESSION: 1. Fusiform infrarenal abdominal aortic aneurysm measuring up to 3.9 cm and which measured 3.[address] dated 10/07/2022. Reviewed, dictated and finalized at location A. IMPRESSION: 1. Fusiform infrarenal abdominal aortic aneurysm measuring up to 3.9 cm and whi ch measured 3.[address] dated 10/07/2022.
== END 2025-02-27 08:34 | disposition home or self-care (01) ==
LOC: GOSHIMG 08:34
PROVIDERS: PCP Internal Medicine; Visit Provider Clinical Nurse Specialist
DX: I71.43 Infrarenal abdominal aortic aneurysm, without rupture (principal)
CPT/HCPCS: 76775

== ENCOUNTER 2025-04-17 17:55 | Inpatient (IN) | payer MEDICARE, OTHER, SELFPAY ==
[2025-04-17] VITALS (18 sets, daily range): BP systolic 99–137; BP diastolic 42–109; PULSE 85–100; RESP 16–29; TEMP 36.9–38.2; O2SAT 94–100; BMI 26.4
--- NOTE | ~2025-04-17 | XR_ITS ---
EXAMINATION: XR chest 1V portable 04/17/2025 18:37 INDICATION: Weakness and fever PROCEDURE: AP portable chest COMPARISON: 08/29/2023 FINDINGS: The lungs are clear. The cardiomediastinal silhouette is within normal limits. There are no pleural effusions. There is no pneumothorax suspected. IMPRESSION: 1: NO ACUTE CARDIOPULMONARY DISEASE. Reviewed, dictated and finalized at location O.
--- NOTE | ~2025-04-17 | XR_ITS ---
EXAMINATION: XR chest 1V portable DATE: 04/18/2025 04:13 INDICATION: Wheezing TECHNIQUE: frontal view of the chest was obtained. COMPARISON: Chest radiograph dated 04/17/25 FINDINGS: Scattered increased lucency and architectural distortion throughout the lungs consistent with emphysema better appreciated on prior CT. Mild streaky atelectasis at the bilateral lung bases. Small opacity at the left lower lung zone new since prior study which could represent pneumonia, atelectasis or a rtifact of superimposed vascular and rib shadows. Calcified nodule right upper lung zone consistent with old granulomatous disease. No pulmonary edema, pleural effusion or pneumothorax. Heart size is normal. IMPRESSION: 1. Emphysema with new small opacity in the left lower lung zone which could represent pneumonia, atelectasis or artifact of superimposed vascular and rib shadows. Reviewed, dictated and finalized at location A. IMPRESSION: 1. Emphysema with new small opacity in the left lower lung zone which could rep resent pneumonia, atelectasis or artifact of superimposed vascular and rib shad ows.
--- NOTE | 2025-04-17 18:02 | ECG_ITS ---
Test Date: 2025-04-17 18:24:41 Measurements Intervals [place] Rate: 89 P: 59 NV: 163 QRS: -57 QRSD: 126 T: 34 QT: 368 QTc: 449 Interpretive Statements SINUS RHYTHM RIGHT BUNDLE BRANCH BLOCK [120+ ms QRS DURATION, UPRIGHT V1, 40+ ms S IN I/aVL/V4/V5/V6] LEFT ANTERIOR FASCICULAR BLOCK [QRS AXIS <= -45, QR IN I, RS IN II] ABNORMAL ECG No previous ECG available for comparison Electronically Signed On 04-18-2025 11:07:25 CDT by Lance Tovar M.D.
[2025-04-17 18:38] LABS: Hematocrit 39.9 % (42.0-52.0); Hemoglobin 12.7 g/dL (14.0-18.0); Immature Granulocyte Percent A 0.7 % (0-0.5); Lymphocytes Absolute Auto 0.75 K/mm3 (0.9-3.2); Mean Corpuscular HGB Conc 31.8 g/dl (32-36); Mean Corpuscular Hemoglobin 30.3 pg (26-34); Mean Corpuscular Volume 95.2 fl (80-100); Nucleated Red Blood Cells Absolute Auto 0.000 K/mm3 (0.0-0.012); Nucleated Red Blood Cells Perc 0.0 % (0.0-0.2); Platelet Count Result 173 k/mm3 (150-375); Red Blood Count 4.19 M/mm3 (4.6-6.20); White Blood Count 14.4 K/mm3 (4.5-10.0)
[2025-04-17 18:48] LABS: Add Urine Microscopic? YES; Appearance Urine Turbid (Clear); Glucose Urine UA Negative (Negative); Leukocyte Esterase Ur 3+ LEU/UL (Negative); Need Manual Microscopic Reviewed; Nitrate Urine Negative (Negative); Specific Grav Ur 1.019 (1.001-1.035)
[2025-04-17 18:53] LABS: Alanine Aminotransferase 28 U/L (6-50); Albumin Level 3.9 g/dL (3.5-5.1); Alkaline Phosphatase 48 U/L (38-126); Anion Gap 9 mmol/L (4-12); Aspartate Amino Transferase 75 U/L (17-59); Bilirubin,Total 1.5 mg/dL (0.2-1.3); Blood Urea Nitrogen 56 mg/dL (9-20); Calcium 8.6 mg/dL (8.4-10.2); Carbon Dioxide 26 mmol/L (22-30); Chloride 102 mmol/L (98-107); Estimated CRCL calculation 36 ml/min; Estimated Glomerular Filt Rate 42; Glucose 120 mg/dL (65-110); Potassium 4.6 mmol/L (3.4-5.0); Sodium 137 mmol/L (137-145); Total Protein 7.4 g/dL (6.3-8.2)
[2025-04-17] MEDS: cefTRIAXone 1 GM in SODIUM CHLORIDE 0.9% IV 50 ML 100 ML IVPB (19:40)
[2025-04-17] MEDS: SODIUM CHLORIDE 0.9% IV 3,000 ML 999 ML IV CONT (19:41)
--- NOTE | 2025-04-17 19:41 | PC.NURSE ---
blood cultures drawn by dinesh patterson and tico sampson prior to administration of abx.
--- NOTE | 2025-04-17 19:44 | ED.GENADULT ---
HPI - General Adult General Chief complaint: Weakness Stated complaint: WEAKNESS Time Seen by Provider: 04/17/25 18:34 History of Present Illness HPI narrative: This is an 84-year-old male presenting ED with chief complaint of weakness. Family has noticed that he has been more weak and slightly confused over the last several days. His daughter says that she has knows he is urinating far more frequently than usual. The patient himself has no complaints other than he feels weak. He has had several ground level falls but has not sustained any serious injuries. He has not struck his head. Patient denies fevers chills chest pain difficulty breathing abdominal pain urinary symptoms nausea vomiting diarrhea. Related Data Home Medications ?Medication ?Instructions ?Recorded ?Confirmed ?Last Taken ?Type acetaminophen 500 mg tablet 1,000 mg PO BID PRN 03/27/25 03/27/25 Unknown History (Tylenol Extra Strength) bevacizumab 25 mg/mL intravenous intravitreal .2M 03/27/25 03/27/25 Unknown History solution (Avastin) warfarin 4 mg tablet 4 mg PO .COMPLEX 03/27/25 03/27/25 Unknown History Allergies Allergy/AdvReac Type Severity Reaction Status Date / Time No Known Allergies Allergy Verified 03/27/25 09:55 PMFSH Past Medical History Medical History Chronic anticoagulation Other fatigue Right knee DJD Left knee DJD BPH (benign prostatic hyperplasia) Prostatitis Gastritis Abdominal aneurysm Hyperbilirubinemia Gout Weakness Rhabdomyolysis Immunization counseling Screening, lipid Essential (primary) hypertension Gout, unspecified Surgical History Surgical History 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 Treviño S/P total knee arthroplasty RT TKA 05/16/24- Dr. Treviño Status post right knee replacement (~05/2024) Family History Family History Sibling Hypertension Mother Family history of Alzheimer's disease Social History Social History Social History: Caffeine- rarely Smoking packs per day: 1 Smoking cigarettes per day: 20.0 Years smoked: 20 Smoking pack-years: 20.00 Smoking status: Never smoker Tobacco type: cigarettes Second hand tobacco smoke exposure: No Additional smoking assessment comments: at least 20 years ago Alcohol intake: former Substance use: never Substance use type: does not use Do You Feel Safe in your Home?: Yes Lack of Transportation: No Lack of Food: Never True Current Housing: I Have Housing Concerned About Future Housing: No Difficulty Paying Gas/Electric Bills: No Difficulty Paying for Meds: No Currently Unemployed: No Education: High School Diploma/GED Difficulty w/ Childcare or Family Care: No Living arrangements: with family Additional living arrangements comments: Occupation/Education: retired Sexual Orientation (if Verbalized by the Patient): Straight or Heterosexual Spiritual care concerns: Yes (Moravian) Exam Narrative: APPEARANCE: No apparent distress. Head: atraumatic. EYES: EOMI, NOSE: Atraumatic NECK: Trachea midline RESPIRATORY: No increased rate of breathing clear to auscultation CARDIOVASCULAR: RRR, no peripheral edema ABDOMINAL: Non-distended nontender MUSCULOSKELETAl: No obvious deformities NEURO: Alert. Cranial nerves 2-12 grossly intact. Sensation light touch, motor function cerebellar function intact for 4 extremities. Gait exam was deferred SKIN:: Warm, dry. Normal color PSYCHIATRIC: Normal affect Course Vital Signs Vital signs: Vital Signs Temperature 100.7 F H 04/17/25 17:56 Pulse Rate 89 04/17/25 17:56 Respiratory Rate 16 04/17/25 17:56 Blood Pressure 99/42 L 04/17/25 17:56 Pulse Oximetry 94 04/17/25 17:56 Oxygen Delivery Room Air 04/17/25 17:56 Temperature 100.7 F H 04/17/25 17:56 Pulse Rate 87 04/17/25 18:30 Respiratory Rate 16 04/17/25 17:56 Blood Pressure 99/42 L 04/17/25 17:56 Pulse Oximetry 94 04/17/25 17:56 Oxygen Delivery Room Air 04/17/25 17:56 Medical Decision Making [facility] Narrative Medical decision making narrative: -Course: 84-year-old male presenting with weakness and increased urination. Urine indicative infection. White count 14. Blood pressures are soft and the patient is febrile 100.7. Patient treated for sepsis due to UTI with 30 cc/kilogram bolus and ceftriaxone. Blood cultures obtained. Patient will be admitted to the hospital for further management. -DDX includes but is not limited to: Sepsis UTI dehydration pneumonia Vital Signs Vital Signs: Vital Signs Temperature 100.7 F H 04/17/25 17:56 Pulse Rate 89 04/17/25 17:56 Respiratory Rate 16 04/17/25 17:56 Blood Pressure 99/42 L 04/17/25 17:56 Pulse Oximetry 94 04/17/25 17:56 Oxygen Delivery Room Air 04/17/25 17:56 Temperature 100.7 F H 04/17/25 17:56 Pulse Rate 87 04/17/25 18:30 Respiratory Rate 16 04/17/25 17:56 Blood Pressure 99/42 L 04/17/25 17:56 Pulse Oximetry 94 04/17/25 17:56 Oxygen Delivery Room Air 04/17/25 17:56 Lab Data 04/17/25 18:32 04/17/25 18:32 Labs: Lab Results 04/17/25 04/17/25 Range/Units 18:32 19:29 WBC 14.4 H (4.5-10.0) K/mm3 RBC 4.19 L (4.6-6.20) M/mm3 Hgb 12.7 L (14.0-18.0) g/dL Hct 39.9 L (42.0-52.0) % MCV 95.2 (80-100) fl MCH 30.3 (26-34) pg MCHC 31.8 L (32-36) g/dl RDW 15.8 H (11.5-14.5) % Plt Count 173 (150-375) k/mm3 MPV 9.2 (7.4-10.4) fl Immature Gran % (Auto) 0.7 H (0-0.5) % Neut % (Auto) 87.2 H (45.5-73.1) % Lymph % (Auto) 5.2 L (18.3-44.2) % Mccreary % (Auto) 6.8 (2.6-8.5) % Eos % (Auto) 0.0 (0-4.4) % Baso % (Auto) 0.1 L (0.2-1.2) % Lymph # (Auto) 0.75 L (0.9-3.2) K/mm3 Mccreary # (Auto) 1.0 H (0.1-0.6) K/mm3 Eos # (Auto) 0.0 (0-0.3) K/mm3 Baso # (Auto) 0.0 (0.0-0.1) K/mm3 Abs Immat Gran (auto) 0.10 H (0.00-0.031) K/mm3 Absolute Neuts (auto) 12.5 H (1.3-6.7) K/mm3 Absolute Nucleated RBC 0.000 (0.0-0.012) K/mm3 Nucleated RBC % 0.0 (0.0-0.2) % Sodium 137 (137-145) mmol/L Potassium 4.6 (3.4-5.0) mmol/L Chloride 102 (98-107) mmol/L Carbon Dioxide 26 (22-30) mmol/L Anion Gap 9 (4-12) mmol/L BUN 56 H D (9-20) mg/dL Creatinine 1.59 H (0.7-1.3) mg/dL Estim Creat Clear Calc 36 ml/min Estimated GFR 42 L (59 - ) Glucose 120 H (65-110) mg/dL Lactic Acid 1.7 Pending (0.7-2.0) mmol/L Calcium 8.6 (8.4-10.2) mg/dL Total Bilirubin 1.5 H (0.2-1.3) mg/dL AST 75 H (17-59) U/L ALT 28 (6-50) U/L Alkaline Phosphatase 48 (38-126) U/L Total Creatine Kinase Pending Total Protein 7.4 (6.3-8.2) g/dL Albumin 3.9 (3.5-5.1) g/dL Urine Color Yellow (Yellow) Urine Appearance Turbid H (Clear) Urine pH 5.5 (5.0-9.0) Ur Specific [place] 1.019 (1.001-1.035) Urine Protein 2+ H (Negative) mg/dL Urine Glucose (UA) Negative (Negative) mg/dL Urine Ketones Negative (Negative) mg/dL Ur Blood (Man) 3+ H (Negative) Urine Nitrate Negative (Negative) Urine Bilirubin Negative (Negative) Urine Urobilinogen 1.0 (<2.0) mg/dL Add Ur Microanalysis Reviewed Leukocyte Esterase Rfl 3+ H (Negative) ALYCE/UL Urine RBC 6-10 H (0-2) /hpf Urine WBC >100 H (0-3) /hpf Ur Squamous Epith Cells Few (Few) /hpf Urine Bacteria None seen /hpf Urine Casts 11-20 Influenza A (RT-PCR) Pending Influenza B (RT-PCR) Pending RSV (RT-PCR) Pending SARS-CoV-2 RNA (RT-PCR) Pending Discharge Plan Discharge Clinical Impression: Acute UTI, Sepsis Patient Disposition: Home Condition: Stable Instructions: Antibiotic Form Patient Language: Guinean Prescriptions: No Action acetaminophen [Tylenol Extra Strength] 500 mg tablet 1,000 mg PO BID PRN Avastin 25 mg/mL solution intravitreal .2M warfarin 4 mg tablet 4 mg PO .COMPLEX Rx Instructions: 4 mg orally 4 times per week; metoprolol succinate [Toprol XL] 25 mg tablet extended release 24 hr 25 mg PO DAILY Qty: 90 1RF lisinopril 20 mg tablet 20 mg PO DAILY Qty: 90 1RF allopurinol 300 mg tablet 300 mg PO HS Qty: 90 1RF finasteride 5 mg tablet See Rx Instructions .ROUTE .COMPLEX Qty: 30 5RF Dose Instruction: TAKE 1 TABLET BY MOUTH IN THE MORNING Rx Instructions: TAKE 1 TABLET BY MOUTH IN THE MORNING tamsulosin 0.4 mg capsule See Rx Instructions .ROUTE .COMPLEX Qty: 30 5RF Dose Instruction: Take 1 capsule by mouth in the morning Rx Instructions: Take 1 capsule by mouth in the morning warfarin 3 mg tablet See Rx Instructions .ROUTE .COMPLEX Qty: 30 5RF Dose Instruction: Take 1 tablet by mouth once daily Rx Instructions: Take 1 tablet by mouth once daily Follow-up/Referrals: Dony aHrkins, [Primary Care Provider, Internal Medicine]
[2025-04-17 19:48] LABS: Creatine Kinase 1325 U/L (55-170)
--- NOTE | 2025-04-17 19:49 | PC.NURSE ---
colin in lab contacted about blood culture orders. She is attempting to fix the multiple blood culture orders.
[2025-04-17 20:11] LABS: Influenza A QL RT-PCR Negative (Negative); Influenza B QL RT-PCR Negative (Negative); RSV RNA, RT-PCR Negative (Negative); SARS-CoV-2 RNA PCR Negative (Negative)
[2025-04-17] MEDS: ACETAMINOPHEN 500 MG TABLET 1000 MG PO (20:20)
--- NOTE | 2025-04-17 22:25 | ADMGEN ---
This patient, Sachin Mast, was admitted to Medical Room 255-. Patient/family oriented to hospital policies and general routines including ID bracelet, bed and alarms, visiting hours, pain management, procedures, bathroom and other care routines, personal items, smoking policy, room service/diet, and visiting hours. Information on how to activate the Rapid Response Team has been discussed. Patient/Family are encouraged to report perceived risks to care and to ask questions if they do not understand what they are told or what they should do.
[2025-04-18] VITALS (15 sets, daily range): BP systolic 101–164; BP diastolic 61–79; PULSE 76–115; RESP 15–26; TEMP 36.6–37.4; O2SAT 88–97
--- NOTE | 2025-04-18 03:11 | PM.IMHP ---
H&P: HPI History of Present Illness Date/Time: 04/18/25 03:11 Chief Complaint: Weakness Narrative: This is a 84-year-old male patient who has a history of paroxysmal atrial fibrillation. The family noticed that the patient was moving slower and was somewhat confused over the last couple days. His daughter also noticed that he is urinating more frequently. The patient has had several ground level falls but did not sustain any noticeable injuries. He denied hitting his head. He did not lose any consciousness. He denies any heart palpitations or shortness of breath. His temperature was 100.7?. Heart rate 89. Respiratory rate 16. Blood pressure was soft at 99/42 with a pulse ox of 94% on room air. The patient is being treated with IV fluids with 30 mL per kg bolus and was started on ceftriaxone. Blood cultures and urine cultures were obtained. EKG was read as sinus rhythm heart rate 89. He has a right bundle branch block. On his CBC is white count was noted to be 14.4, H&H is 12.7 and 39.9. Abnormal labs on his chemistry BUN 56 and creatinine 1.59 with previous normal renal function. His glucose was noted to be 120. Total creatinine kinase 1325. Urinalysis shows 3+ leukocytes, rbc's 6-10, urine wbc's greater than 100. Viral serology is negative The patient is being admitted to medical floor inpatient status on the date of service of 04/18/2025. Review of Systems Constitutional: Constitutional: Reports as per HPI, Reports fatigue, Reports fever(s), Reports frequent falls, Reports lethargy and Reports malaise Eyes: Eyes: Reports no additional eye complaints ENT: Reports system reviewed and no additional complaints, except as documented Cardiovascular: Cardiovascular: Reports as per HPI and Reports no additional cardiovascular complaints Respiratory: Respiratory: Reports as per HPI and Reports no additional respiratory complaints Gastrointestinal: Gastrointestinal: Reports as per HPI and Reports no additional gastrointestinal complaints Genitourinary: Genitourinary: Reports no additional male genitourinary complaints and Reports as per HPI Musculoskeletal: Musculoskeletal: Reports no additional musculoskeletal complaints and Reports as per HPI Neurologic: Reports system reviewed and no additional complaints, except as documented and Reports lack of coordination Psychiatric: Psychiatric: Reports no additional psychiatric complaints Endocrine: Endocrine: Reports no additional endocrine complaints Hematologic/Lymphatic: Hematologic/Lymphatic: Reports no additional hematologic/lymphatic complaints and Reports as per HPI Allergic/Immunologic: Allergic/Immunologic: Reports no additional allergic/immunologic complaints [facility] Past Medical History Medical History (Updated 04/18/25 @ 03:37 by Silvia Garcia APRN) Chronic anticoagulation Other fatigue Right knee DJD Left knee DJD BPH (benign prostatic hyperplasia) Prostatitis Gastritis Abdominal aneurysm Hyperbilirubinemia Gout Weakness Rhabdomyolysis Immunization counseling Screening, lipid Essential (primary) hypertension Gout, unspecified Surgical History Surgical History (Updated 04/18/25 @ 03:24 by Silvia Garcia APRN) Cataract extraction status 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 Treviño S/P total knee arthroplasty RT TKA 05/16/24- Dr. Treviño Status post right knee replacement (~05/2024) Family History Family History Sibling Hypertension Mother Family history of Alzheimer's disease Social History Social History (Updated 04/18/25 @ 03:25 by Silvia Garcia APRN) Social History: Caffeine- rarely Smoking packs per day: 1 Smoking cigarettes per day: 20.0 Years smoked: 20 Smoking pack-years: 20.00 Smoking status: Former smoker Tobacco type: cigarettes Second hand tobacco smoke exposure: No Additional smoking assessment comments: at least 20 years ago Alcohol intake: never Substance use: never Substance use type: does not use Do You Feel Safe in your Home?: Yes Lack of Transportation: No Lack of Food: Never True Current Housing: I Have Housing Concerned About Future Housing: No Difficulty Paying Gas/Electric Bills: No Difficulty Paying for Meds: No Currently Unemployed: No Education: High School Diploma/GED Difficulty w/ Childcare or Family Care: No Living arrangements: with family Additional living arrangements comments: Occupation/Education: retired Sexual Orientation (if Verbalized by the Patient): Straight or Heterosexual Spiritual care concerns: No Meds Home Medications and Allergies Home Medications ?Medication ?Instructions ?Recorded ?Confirmed ?Type lisinopril 20 mg tablet 20 mg PO DAILY #90 tabs 02/06/25 04/17/25 Rx metoprolol succinate 25 mg 25 mg PO DAILY #90 tabs 02/06/25 04/17/25 Rx tablet,extended release 24 hr (Toprol XL) allopurinol 300 mg tablet 300 mg PO HS #90 tabs 02/12/25 04/17/25 Rx finasteride 5 mg tablet See Rx Instructions .Route 02/20/25 04/17/25 Rx .COMPLEX #30 tabs tamsulosin 0.4 mg capsule See Rx Instructions .Route 02/27/25 04/17/25 Rx .COMPLEX #30 caps acetaminophen 500 mg tablet 1,000 mg PO .q12 PRN pain 03/27/25 04/17/25 History (Tylenol Extra Strength) bevacizumab 25 mg/mL intravenous intravitreal .2M 03/27/25 03/27/25 History solution (Avastin) warfarin 4 mg tablet 4 mg PO .COMPLEX 03/27/25 04/17/25 History warfarin 3 mg tablet See Rx Instructions .Route 04/13/25 04/17/25 Rx .COMPLEX #30 tabs Allergies Allergy/AdvReac Type Severity Reaction Status Date / Time No Known Allergies Allergy Verified 03/27/25 09:55 Vital Signs Vital Signs - 24 hr 04/17/25 17:56 04/17/25 18:30 04/17/25 19:15 Temperature 100.7 F H Pulse Rate 89 87 93 Respiratory Rate 16 24 H Blood Pressure 99/42 L Pulse Oximetry 94 Oxygen Delivery Room Air 04/17/25 19:16 04/17/25 19:30 04/17/25 19:31 Temperature Pulse Rate 90 85 85 Respiratory Rate 27 H 23 H 23 H Blood Pressure 137/69 107/62 Pulse Oximetry 99 Oxygen Delivery 04/17/25 19:45 04/17/25 19:46 04/17/25 19:46 Temperature 98.6 F Pulse Rate 88 89 Respiratory Rate 29 H 18 Blood Pressure 121/54 L Pulse Oximetry Oxygen Delivery 04/17/25 20:00 04/17/25 20:12 04/17/25 20:15 Temperature Pulse Rate 88 92 100 Respiratory Rate 22 H 24 H 24 H Blood Pressure 110/67 Pulse Oximetry Oxygen Delivery 04/17/25 20:17 04/17/25 20:30 04/17/25 20:31 Temperature Pulse Rate 97 94 95 Respiratory Rate 23 H 27 H 21 H Blood Pressure 128/109 H 133/73 Pulse Oximetry Oxygen Delivery 04/17/25 20:45 04/17/25 20:46 04/17/25 21:01 Temperature 98.9 F Pulse Rate 91 95 89 Respiratory Rate 25 H 25 H 26 H Blood Pressure 112/71 114/70 Pulse Oximetry 96 96 100 Oxygen Delivery 04/17/25 22:06 Temperature 98.4 F Pulse Rate 94 Respiratory Rate 16 Blood Pressure 128/68 Pulse Oximetry 95 Oxygen Delivery Exam Const: General: cooperative and comfortable Nutritional Appearance: average body habitus Orientation/consciousness: oriented to person, oriented to place, oriented to time and patient oriented x3 HENMT: Head: normal to inspection Ears: hearing grossly normal bilaterally Face and sinus: normal facial exam Chest: Chest palpation & inspection: normal inspection of the chest Resp: Effort & Inspection: normal respiratory effort and able to speak in complete sentences Auscultation: wheezes expiratory wheezes and scattered wheezes Cardio: Jugular venous distension: no JVD Rhythm: regular rhythm GI: Inspection: normal to inspection GI Palp: Yes Soft to palpation Auscultation: normal bowel sounds Psych: Thought content: Yes Normal thought content present Insight: Fair insight present (Psych) Judgement: Fair judgement present (Psych) H&P: Results Labs Labs: Short CBC 04/17/25 Range/Units 18:32 WBC 14.4 H (4.5-10.0) K/mm3 Hgb 12.7 L (14.0-18.0) g/dL Hct 39.9 L (42.0-52.0) % Plt Count 173 (150-375) k/mm3 BMP 04/17/25 18:32 Sodium 137 Potassium 4.6 Chloride 102 Carbon Dioxide 26 BUN 56 H D Creatinine 1.59 H Glucose 120 H Calcium 8.6 Cardiac Enzymes 04/17/25 Range/Units 19:29 Total Creatine Kinase 1325 H (55-170) U/L Liver Function 04/17/25 Range/Units 18:32 Total Bilirubin 1.5 H (0.2-1.3) mg/dL AST 75 H (17-59) U/L ALT 28 (6-50) U/L Alkaline Phosphatase 48 (38-126) U/L Albumin 3.9 (3.5-5.1) g/dL Urine 04/17/25 Range/Units 18:32 Urine Color Yellow (Yellow) Urine Appearance Turbid H (Clear) Urine pH 5.5 (5.0-9.0) Ur Specific [place] 1.019 (1.001-1.035) Urine Protein 2+ H (Negative) mg/dL Urine Glucose (UA) Negative (Negative) mg/dL Assessment and Plan Assessment and plan (1) Acute UTI: Code(s): N39.0 - Urinary tract infection, site not specified Status: Acute Assessment and Plan: -the patient was started on Rocephin .-urine cultures have been ordered -blood cultures have been ordered -the patient was given IV boluses in the emergency room.(chest x-ray has been ordered to rule out fluid overload). If chest x-ray is clear will continue with low rate IV fluids -may also consider Urology consult for hematuria. (2) Acute renal failure: Code(s): N17.9 - Acute kidney failure, unspecified Status: Acute Assessment and Plan: -the patient was given IV fluids. -the patient's lisinopril was placed on hold. -BUN 56 with a baseline anywhere from 30 to 243. Creatinine 1.59 with a normal baseline. (3) Rhabdomyolysis: Qualifiers: Rhabdomyolysis type: non-traumatic Qualified Code(s): M62.82 - Rhabdomyolysis Code(s): M62.82 - Rhabdomyolysis Status: Acute Assessment and Plan: -total CK 1325. -IV fluids are on hold at this time due to possible fluid overload.(O2 saturations have dropped) -daily CK (4) BPH (benign prostatic hyperplasia): Qualifiers: Lower urinary tract symptom detail: incomplete bladder emptying Lower urinary tract symptom presence: symptoms present Qualified Code(s): N40.1 - Benign prostatic hyperplasia with lower urinary tract symptoms; R39.14 - Feeling of incomplete bladder emptying Code(s): N40.0 - Benign prostatic hyperplasia without lower urinary tract symptoms Status: Acute Assessment and Plan: -continue with finasteride (5) Chronic anticoagulation: Code(s): Z79.01 - termite treater helper (current) use of anticoagulants Status: Acute Assessment and Plan: -check PT INR daily -continue with warfarin if he is therapeutic between 2.0 and 3.0 -due to paroxysmal atrial fibrillation (6) Paroxysmal atrial fibrillation: Code(s): I48.0 - Paroxysmal atrial fibrillation Status: Acute Assessment and Plan: -continue with metoprolol with parameters for blood pressure and heart rate -continue with warfarin if therapeutic (7) Essential (primary) hypertension: Code(s): I10 - Essential (primary) hypertension Status: Acute Assessment and Plan: -his blood pressure was low earlier. Continue with metoprolol with parameters. Hold lisinopril for now due to acute renal failure Quality VTE Prophylaxis VTE prophylaxis: pharmacologic ordered (With PT INR therapeutic)
--- NOTE | 2025-04-18 03:58 | PC.NURSE ---
during rounding, pt sounded wheezing and suffering from severe SOB, LUNCHROOM MONITOR medical records receptionist was notified , chest X-ray and resp. treatment were ordered stat . Spo2 room air 88%, NC 2 L was applied by provider order.
[2025-04-18] MEDS: ALBUTEROL SULFATE NEB 2.5 MG/3 ML INH 1.25 MG INHALATION (04:03)
[2025-04-18] MEDS: IPRATROPIUM BR 0.02% INH SOLN 0.5 MG/2.5 ML VIAL INHALATION (04:04)
[2025-04-18] MEDS: FUROSEMIDE INJ 40 MG/4 ML VIAL 20 MG IV PUSH (04:18)
[2025-04-18 04:30] LABS: Alveolar/Arterial O2 Gradient 91.5 mmHg; Fractional Inspired Oxygen 28 %; HCO3 ABG 20.2 mEq/l (22.0-26.0); Oxygen Content ABG 17.0 %vol (16.0-22.0); Oxygen Saturation ABG 94.6 % (95.0-100.0); PCO2 ABG 32.0 mmHg (35.0-45.0); PO2 ABG 70.4 mmHg (80.0-100.0); PO2 FiO2 Ratio Arterial Blood 2.51 %
[2025-04-18 04:31] LABS: Hematocrit 40.0 % (42.0-52.0); Hemoglobin 12.7 g/dL (14.0-18.0); Immature Granulocyte Percent A 0.6 % (0-0.5); Lymphocytes Absolute Auto 1.54 K/mm3 (0.9-3.2); Mean Corpuscular HGB Conc 31.8 g/dl (32-36); Mean Corpuscular Hemoglobin 30.2 pg (26-34); Mean Corpuscular Volume 95.0 fl (80-100); Nucleated Red Blood Cells Absolute Auto 0.000 K/mm3 (0.0-0.012); Nucleated Red Blood Cells Perc 0.0 % (0.0-0.2); Platelet Count Result 162 k/mm3 (150-375); Red Blood Count 4.21 M/mm3 (4.6-6.20); White Blood Count 13.0 K/mm3 (4.5-10.0)
[2025-04-18 04:48] LABS: INR 3.5; Prothrombin Time 33.8 Seconds (11.1-14.7)
[2025-04-18 04:50] LABS: Anion Gap 8 mmol/L (4-12); Blood Urea Nitrogen 50 mg/dL (9-20); Calcium 8.4 mg/dL (8.4-10.2); Carbon Dioxide 25 mmol/L (22-30); Chloride 108 mmol/L (98-107); Creatine Kinase 1039 U/L (55-170); Estimated CRCL calculation 34 ml/min; Estimated Glomerular Filt Rate 47; Glucose 96 mg/dL (65-110); Magnesium 2.2 mg/dL (1.6-2.3); Potassium 3.9 mmol/L (3.4-5.0); Sodium 141 mmol/L (137-145)
--- NOTE | 2025-04-18 05:02 | PC.NURSE ---
ABG's result will reviewed by the FORESTRY LABORER. pt is feeling better after getting a dose of Lasix. This morning BP, temp and heart rate slightly elevated, FORESTRY LABORER was notified, will keep monitoring. Lisinopril was held by provider due to kidney function.
[2025-04-18] MEDS: IPRATROPIUM 0.5 MG/ALBUTEROL SULFATE 2.5 MG AMPUL.NEB 3 ML INHALATION ×3 (08:02→19:59)
[2025-04-18] MEDS: METOPROLOL SUCCINATE EXT REL 25 MG TABCR PO (08:19)
[2025-04-18] MEDS: FINASTERIDE 5 MG TABLET BY MOUTH (08:20)
[2025-04-18] MEDS: TAMSULOSIN HCL 0.4 MG CAPSULE BY MOUTH (08:20)
--- NOTE | 2025-04-18 13:07 | PM.IMPN ---
Progress Note: A&P Assessment and Plan (1) Acute UTI: Code(s): N39.0 - Urinary tract infection, site not specified Status: Acute Assessment and Plan: -the patient was started on Rocephin .-urine cultures have been ordered -blood cultures have been ordered -the patient was given IV boluses in the emergency room.(chest x-ray has been ordered to rule out fluid overload). If chest x-ray is clear will continue with low rate IV fluids -may also consider Urology consult for hematuria. (2) Acute renal failure: Code(s): N17.9 - Acute kidney failure, unspecified Status: Acute Assessment and Plan: -BUN 56, cr 1.59 on admission -slight improvement this AM -plan to restart IV fluids once able -hold home lisinopril until resolved. -CMP in am (3) Rhabdomyolysis: Qualifiers: Rhabdomyolysis type: non-traumatic Qualified Code(s): M62.82 - Rhabdomyolysis Code(s): M62.82 - Rhabdomyolysis Status: Acute Assessment and Plan: -total CK 1325. -IV fluids are on hold at this time due to possible fluid overload.(O2 saturations have dropped) -check Ck level in AM (4) BPH (benign prostatic hyperplasia): Qualifiers: Lower urinary tract symptom detail: incomplete bladder emptying Lower urinary tract symptom presence: symptoms present Qualified Code(s): N40.1 - Benign prostatic hyperplasia with lower urinary tract symptoms; R39.14 - Feeling of incomplete bladder emptying Code(s): N40.0 - Benign prostatic hyperplasia without lower urinary tract symptoms Status: Acute Assessment and Plan: -continue with finasteride (5) Chronic anticoagulation: Code(s): Z79.01 - [facility] (current) use of anticoagulants Status: Acute Assessment and Plan: -check PT INR daily -continue with warfarin if he is therapeutic between 2.0 and 3.0 -due to paroxysmal atrial fibrillation INR 3.5, will hold warfarin today (6) Paroxysmal atrial fibrillation: Code(s): I48.0 - Paroxysmal atrial fibrillation Status: Acute Assessment and Plan: -continue with metoprolol with parameters for blood pressure and heart rate -warfarin for anticoagulation (7) Essential (primary) hypertension: Code(s): I10 - Essential (primary) hypertension Status: Acute Assessment and Plan: -his blood pressure was low earlier. Continue with metoprolol with parameters. Hold lisinopril for now due to acute renal failure -CMP in am Subjective Date/time seen: 04/18/25 13:07 Interval history: This is a 84-year-old male patient who has a history of paroxysmal atrial fibrillation. The family noticed that the patient was moving slower and was somewhat confused over the last couple days. His daughter also noticed that he is urinating more frequently. The patient has had several ground level falls but did not sustain any noticeable injuries. He denied hitting his head. He did not lose any consciousness. He denies any heart palpitations or shortness of breath. His temperature was 100.7?. Heart rate 89. Respiratory rate 16. Blood pressure was soft at 99/42 with a pulse ox of 94% on room air. The patient is being treated with IV fluids with 30 mL per kg bolus and was started on ceftriaxone. Blood cultures and urine cultures were obtained. EKG was read as sinus rhythm heart rate 89. He has a right bundle branch block. On his CBC is white count was noted to be 14.4, H&H is 12.7 and 39.9. Abnormal labs on his chemistry BUN 56 and creatinine 1.59 with previous normal renal function. His glucose was noted to be 120. Total creatinine kinase 1325. Urinalysis shows 3+ leukocytes, rbc's 6-10, urine wbc's greater than 100. Viral serology is negative The patient is being admitted to medical floor inpatient status on the date of service of 04/18/2025. Patient seen and examined for follow up. Patient's labs reviewed. We will hold patient's warfarin today for an INR of 3.5 and check an INR in the AM. Patient became dyspneic and hypoxic overnight requiring a one time dose of IV lasix for fluid overload. IV fluids have been held at this time. CXR was ordered to ensure no fluid is present. We will start IV fluids again once patient has stabilized. Patient to continue on IV antibiotics. Repeat labs ordered in the AM. PT/OT to eval and treat. Review of Systems Review of Systems: All systems reviewed & are unremarkable except as noted in HPI and below Exam Narrative: General: well appearing, appears stated age. HEENT: normocephalic, . Mucous membranes moist. EOMI, PERRLA, bilateral sclera anicteric, no conjunctival injection. Neck supple without JVD, lymphadenopathy, or bruit. Respiratory: clear to ascultation bilaterally. No rales/rhonic/wheezes. Cardiovascular: Regular rate and rhythm, normal S1-S2 upon ascultation. No murmurs, rubs, or clicks. PMI is nondisplaced, capillary refill less than 3 second. Abdomen: Soft, round, no pulsatile masses, nondistended and nontender. No rebound, no guarding. No CVA tenderness, no hepatosplenomegaly. Bowel sounds present to all four quadrants. No high pitch or tinkling sounds, resonant to percussion. Extremities: No cyanosis, clubbing, or edema present. Pulses are palpable 2/2. Active ROM to all four extremities. Neuro: Alert and orientated x 4. PERRLA. Cranial nerves 2-12 intact without focal deficit. Skin: Warm, dry, and intact, without rash, erythema, or lesion. Psych: pleasant, cooperative, normal speech, normal affect, no hallucinations, no dysarthia Objective Data Vital Signs Vital Signs: Vital Signs - 24 hr 04/17/25 17:56 04/17/25 18:30 04/17/25 19:15 Temperature 100.7 F H Pulse Rate 89 87 93 Respiratory Rate 16 24 H Blood Pressure 99/42 L Pulse Oximetry 94 Oxygen Delivery Room Air Oxygen Flow Rate 04/17/25 19:16 04/17/25 19:30 04/17/25 19:31 Temperature Pulse Rate 90 85 85 Respiratory Rate 27 H 23 H 23 H Blood Pressure 137/69 107/62 Pulse Oximetry 99 Oxygen Delivery Oxygen Flow Rate 04/17/25 19:45 04/17/25 19:46 04/17/25 19:46 Temperature 98.6 F Pulse Rate 88 89 Respiratory Rate 29 H 18 Blood Pressure 121/54 L Pulse Oximetry Oxygen Delivery Oxygen Flow Rate 04/17/25 20:00 04/17/25 20:12 04/17/25 20:15 Temperature Pulse Rate 88 92 100 Respiratory Rate 22 H 24 H 24 H Blood Pressure 110/67 Pulse Oximetry Oxygen Delivery Oxygen Flow Rate 04/17/25 20:17 04/17/25 20:30 04/17/25 20:31 Temperature Pulse Rate 97 94 95 Respiratory Rate 23 H 27 H 21 H Blood Pressure 128/109 H 133/73 Pulse Oximetry Oxygen Delivery Oxygen Flow Rate 04/17/25 20:45 04/17/25 20:46 04/17/25 21:01 Temperature 98.9 F Pulse Rate 91 95 89 Respiratory Rate 25 H 25 H 26 H Blood Pressure 112/71 114/70 Pulse Oximetry 96 96 100 Oxygen Delivery Oxygen Flow Rate 04/17/25 22:06 04/18/25 03:54 04/18/25 03:55 Temperature 98.4 F 98.8 F Pulse Rate 94 98 Respiratory Rate 16 26 H Blood Pressure 128/68 141/79 H Pulse Oximetry 95 88 L 97 Oxygen Delivery Oxygen Flow Rate 04/18/25 04:03 04/18/25 04:09 04/18/25 04:33 Temperature Pulse Rate 103 H 115 H Respiratory Rate 24 H 24 H Blood Pressure Pulse Oximetry 97 Oxygen Delivery Nasal Cannula Oxygen Flow Rate 2 04/18/25 05:00 04/18/25 08:02 04/18/25 08:02 Temperature 99.3 F Pulse Rate 103 H 92 Respiratory Rate 18 20 Blood Pressure 164/71 H Pulse Oximetry 96 95 Oxygen Delivery Room Air Oxygen Flow Rate 04/18/25 08:10 04/18/25 08:19 Temperature Pulse Rate 89 98 Respiratory Rate 20 Blood Pressure Pulse Oximetry Oxygen Delivery Oxygen Flow Rate Intake/Output Intake/Output: Intake & Output 04/15/25 04/16/25 04/17/25 04/18/25 23:59 23:59 23:59 23:59 Intake Total 50 270 Output Total 1800 Balance 50 -1530 Meds/Results Medications: Active Medications Generic Name Dose Route Start Last Admin Trade Name Freq PRN Reason Stop Dose Admin Acetaminophen 1,000 mg 04/18/25 03:07 Acetaminophen 500 Mg Tablet PO Q12H PRN Pain Albuterol/Ipratropium 3 ml 04/18/25 08:00 04/18/25 08:02 Ipratropium 0.5 Mg/Albuterol Sulfate 2.5 Mg Ampul.Neb 3 Ml INHALATION 3 ml Q6HRT PETEY Administration Allopurinol 300 mg 04/18/25 21:00 Allopurinol 300 Mg Tablet PO HS PETEY Finasteride 5 mg 04/18/25 09:00 04/18/25 08:20 Finasteride 5 Mg Tablet BY MOUTH 5 mg DAILY PETEY Administration Ceftriaxone Sodium 1 gm/ 50 mls @ 100 mls/hr 04/18/25 20:00 Sodium Chloride IVPB Q24H [facility] Metoprolol Succinate 25 mg 04/18/25 09:00 04/18/25 08:19 Metoprolol Succinate Ext Rel 25 Mg Tabcr PO 25 mg DAILY [facility] Administration Tamsulosin HCl 0.4 mg 04/18/25 09:00 04/18/25 08:20 Tamsulosin Hcl 0.4 Mg Capsule BY MOUTH 0.4 mg DAILY [facility] Administration Warfarin Sodium 4 mg 04/19/25 17:00 Warfarin (*Pbkc) 4 Mg Tablet PO Q48H [facility] Warfarin Sodium 3 mg 04/18/25 17:00 Warfarin (*Pbkc) 3 Mg Tablet BY MOUTH Q48H [facility] Radiology Results: ITS Impressions Chest X-Ray 04/18/25 07:45 IMPRESSION: 1. Emphysema with new small opacity in the left lower lung zone which could represent pneumonia, atelectasis or artifact of superimposed vascular and rib shadows. Labs Labs: Laboratory Results - last 24 hr 04/17/25 04/17/25 04/18/25 18:32 19:29 04:27 WBC 14.4 H 13.0 H RBC 4.19 L 4.21 L Hgb 12.7 L 12.7 L Hct 39.9 L 40.0 L MCV 95.2 95.0 MCH 30.3 30.2 MCHC 31.8 L 31.8 L RDW 15.8 H 15.8 H Plt Count 173 162 MPV 9.2 9.0 Immature Gran % (Auto) 0.7 H 0.6 H Neut % (Auto) 87.2 H 78.5 H Lymph % (Auto) 5.2 L 11.8 L [place] % (Auto) 6.8 8.1 Eos % (Auto) 0.0 0.8 Baso % (Auto) 0.1 L 0.2 Lymph # (Auto) 0.75 L 1.54 [place] # (Auto) 1.0 H 1.1 H Eos # (Auto) 0.0 0.1 Baso # (Auto) 0.0 0.0 Abs Immat Gran (auto) 0.10 H 0.08 H Absolute Neuts (auto) 12.5 H 10.2 H Absolute Nucleated RBC 0.000 0.000 Nucleated RBC % 0.0 0.0 PT 33.8 H INR 3.5 Sodium 137 141 Potassium 4.6 3.9 Chloride 102 108 H Carbon Dioxide 26 25 Anion Gap 9 8 BUN 56 H D 50 H Creatinine 1.59 H 1.43 H Estim Creat Clear Calc 36 34 Estimated GFR 42 L 47 L Glucose 120 H 96 Lactic Acid 1.7 1.2 1.1 Calcium 8.6 8.4 Magnesium 2.2 Total Bilirubin 1.5 H AST 75 H ALT 28 Alkaline Phosphatase 48 Total Creatine Kinase 1325 H 1039 H Total Protein 7.4 Albumin 3.9 Urine Color Yellow Urine Appearance Turbid H Urine pH 5.5 Ur Specific [place] 1.019 Urine Protein 2+ H Urine Glucose (UA) Negative Urine Ketones Negative Ur Blood (Man) 3+ H Urine Nitrate Negative Urine Bilirubin Negative Urine Urobilinogen 1.0 Add Ur Microanalysis Reviewed Leukocyte Esterase Rfl 3+ H Urine RBC 6-10 H Urine WBC >100 H Ur Squamous Epith Cells Few Urine Bacteria None seen Urine Casts 11-20 Influenza A (RT-PCR) Negative Influenza B (RT-PCR) Negative RSV (RT-PCR) Negative SARS-CoV-2 RNA (RT-PCR) Negative
[2025-04-18 20:34] LABS: Modified Allen's Test Pass; Site Drawn RIGHT RADIAL
--- NOTE | 2025-04-18 20:36 | PCRCNOTE ---
G ran on 04/18/25 but failed to cross over.
[2025-04-18] MEDS: cefTRIAXone 1 GM in SODIUM CHLORIDE 0.9% IV 50 ML 100 ML IVPB (20:59)
[2025-04-19] VITALS (11 sets, daily range): BP systolic 107–164; BP diastolic 62–78; PULSE 60–115; RESP 16–20; TEMP 36.7–36.8; O2SAT 94–98
[2025-04-19] MEDS: IPRATROPIUM 0.5 MG/ALBUTEROL SULFATE 2.5 MG AMPUL.NEB 3 ML INHALATION ×4 (01:28→20:48)
[2025-04-19 04:56] LABS: Hematocrit 40.1 % (42.0-52.0); Hemoglobin 12.7 g/dL (14.0-18.0); Immature Granulocyte Percent A 0.5 % (0-0.5); Lymphocytes Absolute Auto 1.20 K/mm3 (0.9-3.2); Mean Corpuscular HGB Conc 31.7 g/dl (32-36); Mean Corpuscular Hemoglobin 29.7 pg (26-34); Mean Corpuscular Volume 93.9 fl (80-100); Nucleated Red Blood Cells Absolute Auto 0.000 K/mm3 (0.0-0.012); Nucleated Red Blood Cells Perc 0.0 % (0.0-0.2); Platelet Count Result 165 k/mm3 (150-375); Red Blood Count 4.27 M/mm3 (4.6-6.20); White Blood Count 8.3 K/mm3 (4.5-10.0)
[2025-04-19 05:19] LABS: Alanine Aminotransferase 37 U/L (6-50); Albumin Level 3.3 g/dL (3.5-5.1); Alkaline Phosphatase 67 U/L (38-126); Anion Gap 7 mmol/L (4-12); Aspartate Amino Transferase 47 U/L (17-59); Bilirubin,Total 1.0 mg/dL (0.2-1.3); Blood Urea Nitrogen 36 mg/dL (9-20); Calcium 8.2 mg/dL (8.4-10.2); Carbon Dioxide 26 mmol/L (22-30); Chloride 105 mmol/L (98-107); Creatine Kinase 309 U/L (55-170); Estimated CRCL calculation 41 ml/min; Estimated Glomerular Filt Rate 60; Glucose 111 mg/dL (65-110); Potassium 4.0 mmol/L (3.4-5.0); Sodium 138 mmol/L (137-145); Total Protein 6.5 g/dL (6.3-8.2)
[2025-04-19 05:22] LABS: INR 2.0; Prothrombin Time 22.1 Seconds (11.1-14.7)
--- NOTE | 2025-04-19 07:24 | P.PNIM_ITS ---
Progress Note: A&P Assessment and Plan (1) Acute UTI: Code(s): N39.0 - Urinary tract infection, site not specified Status: Acute Assessment and Plan: -the patient was started on Rocephin .-urine cultures have been ordered -blood cultures have been ordered -the patient was given IV boluses in the emergency room.(chest x-ray has been ordered to rule out fluid overload). If chest x-ray is clear will continue with low rate IV fluids -may also consider Urology consult for hematuria, patient sees urology as outpatient -IV fluids ordered at 50 ml/hr for 24 hours -AM labs (2) Acute renal failure: Code(s): N17.9 - Acute kidney failure, unspecified Status: Acute Assessment and Plan: -the patient was given IV fluids. -the patient's lisinopril was placed on hold. -BUN 56 with a baseline anywhere from 30 to 43. Creatinine 1.59 with a normal baseline. -improving -IV fluids ordered x 24 hours -AM labs (3) Rhabdomyolysis: Qualifiers: Rhabdomyolysis type: non-traumatic Qualified Code(s): M62.82 - Rhabdomyolysis Code(s): M62.82 - Rhabdomyolysis Status: Acute Assessment and Plan: -total CK 1325 on admission -Improving, 309 today -IV fluids ordered x 24 hous -daily CK (4) BPH (benign prostatic hyperplasia): Qualifiers: Lower urinary tract symptom detail: incomplete bladder emptying Lower urinary tract symptom presence: symptoms present Qualified Code(s): N40.1 - Benign prostatic hyperplasia with lower urinary tract symptoms; R39.14 - Feeling of incomplete bladder emptying Code(s): N40.0 - Benign prostatic hyperplasia without lower urinary tract symptoms Status: Acute Assessment and Plan: -f/u with outpatient urologist as scheduled -continue with finasteride (5) Chronic anticoagulation: Code(s): Z79.01 - [facility] (current) use of anticoagulants Status: Acute Assessment and Plan: -check PT INR daily -continue with warfarin if he is therapeutic between 2.0 and 3.0 -due to paroxysmal atrial fibrillation (6) Paroxysmal atrial fibrillation: Code(s): I48.0 - Paroxysmal atrial fibrillation Status: Acute Assessment and Plan: -continue with metoprolol with parameters for blood pressure and heart rate -continue with warfarin for anticoagulation (7) Essential (primary) hypertension: Code(s): I10 - Essential (primary) hypertension Status: Acute Assessment and Plan: -his blood pressure was low earlier. Continue with metoprolol with parameters. -Hold lisinopril for now due to acute renal failure, continue to hold until BP is higher Subjective Date/time seen: 04/19/25 07:24 Interval history: This is a 84-year-old male patient who has a history of paroxysmal atrial fibrillation, HTN, gout and BPH. The family noticed that the patient was moving slower and was somewhat confused over the last couple days. His daughter also noticed that he is urinating more frequently. The patient has had several ground level falls but did not sustain any noticeable injuries. Patient seen and examined for follow up. Patient seen in his room, sitting up in the chair, in no acute distress. Patient denies acute pain. Patients x-ray reviewed from yesterday with no notable fluid overload. Patient's CK level i mproving, kidney function improving. IV fluids ordered x 24 hours at a low rate to prevent fluid overload. Continue IV ceftriaxone while awaiting final urine and blood cultures. Patient's blood pressure still on low side, continue holding home lisinopril for now. PT/OT ordered. Discussed plan with patient and patient's family. Review of Systems Review of Systems: All systems reviewed & are unremarkable except as noted in HPI and below Exam Narrative: General: well appearing, appears stated age. HEENT: normocephalic, . Mucous membranes moist. EOMI, PERRLA, bilateral sclera anicteric, no conjunctival injection. Neck supple without JVD, lymphadenopathy, or bruit. Respiratory: clear to ascultation bilaterally. No rales/rhonic/wheezes. Cardiovascular: Regular rate and rhythm, normal S1-S2 upon ascultation. No murmurs, rubs, or clicks. PMI is nondisplaced, capillary refill less than 3 second. Abdomen: Soft, round, no pulsatile masses, nondistended and nontender. No rebound, no guarding. No CVA tenderness, no hepatosplenomegaly. Bowel sounds present to all four quadrants. No high pitch or tinkling sounds, resonant to percussion. Extremities: No cyanosis, clubbing, or edema present. Pulses are palpable 2/2. Active ROM to all four extremities. Neuro: Alert and orientated x 4. PERRLA. Cranial nerves 2-12 intact without focal deficit. Skin: Warm, dry, and intact, without rash, erythema, or lesion. Psych: pleasant, cooperative, normal speech, normal affect, no hallucinations, no dysarthia Objective Data Vital Signs Vital Signs: Vital Signs - 24 hr 04/18/25 08:02 04/18/25 08:02 04/18/25 08:10 Temperature Pulse Rate 92 89 Respiratory Rate 20 20 Blood Pressure Pulse Oximetry 95 Oxygen Delivery Room Air 04/18/25 08:19 04/18/25 13:53 04/18/25 14:00 Temperature 97.9 F Pulse Rate 98 76 105 H Respiratory Rate 20 16 Blood Pressure 101/61 Pulse Oximetry 93 Oxygen Delivery 04/18/25 14:02 04/18/25 19:59 04/18/25 19:59 Temperature Pulse Rate 84 76 Respiratory Rate 20 15 Blood Pressure Pulse Oximetry 93 Oxygen Delivery Room Air 04/18/25 20:04 04/18/25 22:14 04/19/25 01:28 Temperature 98.9 F Pulse Rate 79 80 115 H Respiratory Rate 15 16 20 Blood Pressure 110/64 Pulse Oximetry 97 Oxygen Delivery 04/19/25 04:12 Temperature 98.1 F Pulse Rate 72 Respiratory Rate 16 Blood Pressure 125/62 Pulse Oximetry 95 Oxygen Delivery Intake/Output Intake/Output: Intake & Output 04/16/25 04/17/25 04/18/25 04/19/25 23:59 23:59 23:59 23:59 Intake Total 50 862 200 Output Total 2900 900 Balance 50 -0522 -700 Meds/Results Medications: Active Medications Generic Name Dose Route Start Last Admin Trade Name Freq PRN Reason Stop Dose Admin Acetaminophen 1,000 mg 04/18/25 03:07 Acetaminophen 500 Mg Tablet PO Q12H PRN Pain Albuterol/Ipratropium 3 ml 04/18/25 08:00 04/19/25 01:28 Ipratropium 0.5 Mg/Albuterol Sulfate 2.5 Mg Ampul.Neb 3 Ml INHALATION 3 ml Q6HRT PETEY Administration Allopurinol 300 mg 04/18/25 21:00 04/18/25 20:59 Allopurinol 300 Mg Tablet PO 300 mg HS PETEY Administration Finasteride 5 mg 04/18/25 09:00 04/18/25 08:20 Finasteride 5 Mg Tablet BY MOUTH 5 mg DAILY PETEY Administration Ceftriaxone Sodium 1 gm/ 50 mls @ 100 mls/hr 04/18/25 20:00 04/18/25 21:32 Sodium Chloride IVPB Infused Q24H PETEY Infusion Metoprolol Succinate 25 mg 04/18/25 09:00 04/18/25 08:19 Metoprolol Succinate Ext Rel 25 Mg Tabcr PO 25 mg DAILY PETEY Administration Tamsulosin HCl 0.4 mg 04/18/25 09:00 04/18/25 08:20 Tamsulosin Hcl 0.4 Mg Capsule BY MOUTH 0.4 mg DAILY PETEY Administration Warfarin Sodium 4 mg 04/19/25 17:00 Warfarin (*Pbkc) 4 Mg Tablet PO Q48H [facility] Warfarin Sodium 3 mg 04/18/25 17:00 Warfarin (*Pbkc) 3 Mg Tablet BY MOUTH On Hold: 04/18/25 17:00 Q48H [facility] Comment: HOLD WHILE INR >3 Radiology Results: ITS Impressions Chest X-Ray 04/18/25 07:45 IMPRESSION: 1. Emphysema with new small opacity in the left lower lung zone which could represent pneumonia, atelectasis or artifact of superimposed vascular and rib shadows. Labs Labs: Laboratory Results - last 24 hr 04/18/25 04/19/25 04:20 04:11 WBC 8.3 RBC 4.27 L Hgb 12.7 L Hct 40.1 L MCV 93.9 MCH 29.7 MCHC 31.7 L RDW 15.7 H Plt Count 165 MPV 9.3 Immature Gran % (Auto) 0.5 Neut % (Auto) 72.1 Lymph % (Auto) 14.5 L [place] % (Auto) 11.3 H Eos % (Auto) 1.2 Baso % (Auto) 0.4 Lymph # (Auto) 1.20 [place] # (Auto) 0.9 H Eos # (Auto) 0.1 Baso # (Auto) 0.0 Abs Immat Gran (auto) 0.04 H Absolute Neuts (auto) 6.0 Absolute Nucleated RBC 0.000 Nucleated RBC % 0.0 PT 22.1 H D INR 2.0 Puncture Site Right radial ABG pH 7.419 ABG pCO2 32.0 L ABG pO2 70.4 L ABG PO2/FiO2 Ratio 2.51 ABG HCO3 20.2 L ABG O2 Saturation 94.6 L ABG O2 Content 17.0 ABG Base Excess -3.3 A-a Gradient 91.5 Oxyhemoglobin 92.8 Total Hemoglobin 13.0 O2 Delivery Device Not Reportable O2 Liters/Min FiO2 28 Sodium 138 Potassium 4.0 Chloride 105 Carbon Dioxide 26 Anion Gap 7 BUN 36 H D Creatinine 1.17 Estim Creat Clear Calc 41 Estimated GFR 60 Glucose 111 H Calcium 8.2 L Total Bilirubin 1.0 AST 47 ALT 37 Alkaline Phosphatase 67 Total Creatine Kinase 309 H Total Protein 6.5 Albumin 3.3 L Quality VTE Prophylaxis VTE prophylaxis: pharmacologic ordered (With PT INR therapeutic)
[2025-04-19] MEDS: SODIUM CHLORIDE 0.9% IV 1,000 ML 50 ML IV CONT (08:07)
[2025-04-19] MEDS: TAMSULOSIN HCL 0.4 MG CAPSULE BY MOUTH (08:08)
[2025-04-19] MEDS: FINASTERIDE 5 MG TABLET BY MOUTH (08:08)
[2025-04-19] MEDS: METOPROLOL SUCCINATE EXT REL 25 MG TABCR PO (08:08)
[2025-04-19] MEDS: cefTRIAXone 1 GM in SODIUM CHLORIDE 0.9% IV 50 ML 100 ML IVPB (19:45)
[2025-04-20] MEDS: IPRATROPIUM 0.5 MG/ALBUTEROL SULFATE 2.5 MG AMPUL.NEB 3 ML INHALATION ×2 (02:26→08:32)
[2025-04-20 02:29] VITALS: PULSE 80; RESP 16
[2025-04-20 02:35] VITALS: PULSE 82; RESP 16
[2025-04-20 05:00] LABS: Hematocrit 35.4 % (42.0-52.0); Hemoglobin 11.6 g/dL (14.0-18.0); Immature Granulocyte Percent A 0.5 % (0-0.5); Lymphocytes Absolute Auto 1.07 K/mm3 (0.9-3.2); Mean Corpuscular HGB Conc 32.8 g/dl (32-36); Mean Corpuscular Hemoglobin 30.3 pg (26-34); Mean Corpuscular Volume 92.4 fl (80-100); Nucleated Red Blood Cells Absolute Auto 0.000 K/mm3 (0.0-0.012); Nucleated Red Blood Cells Perc 0.0 % (0.0-0.2); Platelet Count Result 165 k/mm3 (150-375); Red Blood Count 3.83 M/mm3 (4.6-6.20); White Blood Count 6.4 K/mm3 (4.5-10.0)
[2025-04-20 05:10] VITALS: BP 116/71; PULSE 95; RESP 16; TEMP 37.1; O2SAT 92
[2025-04-20 05:13] LABS: INR 1.5; Prothrombin Time 17.5 Seconds (11.1-14.7)
[2025-04-20 05:22] LABS: Alanine Aminotransferase 40 U/L (6-50); Albumin Level 3.0 g/dL (3.5-5.1); Alkaline Phosphatase 64 U/L (38-126); Anion Gap 4 mmol/L (4-12); Aspartate Amino Transferase 40 U/L (17-59); Bilirubin,Total 1.1 mg/dL (0.2-1.3); Blood Urea Nitrogen 25 mg/dL (9-20); Calcium 8.2 mg/dL (8.4-10.2); Carbon Dioxide 26 mmol/L (22-30); Chloride 106 mmol/L (98-107); Creatine Kinase 111 U/L (55-170); Estimated CRCL calculation 51 ml/min; Estimated Glomerular Filt Rate > 60; Glucose 109 mg/dL (65-110); Potassium 3.8 mmol/L (3.4-5.0); Sodium 136 mmol/L (137-145); Total Protein 5.9 g/dL (6.3-8.2)
[2025-04-20] MEDS: SODIUM CHLORIDE 0.9% IV 1,000 ML 50 ML IV CONT (06:30)
[2025-04-20] MEDS: FINASTERIDE 5 MG TABLET BY MOUTH (08:10)
[2025-04-20] MEDS: TAMSULOSIN HCL 0.4 MG CAPSULE BY MOUTH (08:10)
[2025-04-20 08:11] VITALS: PULSE 90
[2025-04-20] MEDS: METOPROLOL SUCCINATE EXT REL 25 MG TABCR PO (08:11)
[2025-04-20 08:33] VITALS: PULSE 82; RESP 16
--- NOTE | 2025-04-20 11:53 | P.DS_ITS ---
DS: Admitting Diagnosis Discharge Date 04/20/2025 Admitting Diagnosis Acute UTI DS: Discharge Diagnosis Discharge Diagnosis (1) Acute UTI: Code(s): N39.0 - Urinary tract infection, site not specified Status: Acute Assessment and Plan: -the patient was started on Rocephin .-urine cultures have been ordered -blood cultures have been ordered -the patient was given IV boluses in the emergency room.(chest x-ray has been ordered to rule out fluid overload). If chest x-ray is clear will continue with low rate IV fluids -may also consider Urology consult for hematuria, patient sees urology as outpatient -s/p IV fluids -urine cultures with no growth -patient completed 3 days of IV ceftriaxone (2) Acute renal failure: Code(s): N17.9 - Acute kidney failure, unspecified Status: Acute Assessment and Plan: -the patient was given IV fluids. -the patient's lisinopril was placed on hold, restarted prior to discharge -BUN 56 with a baseline anywhere from 30 to 43. Creatinine 1.59 with a normal baseline. -s/p IV fluids -resolved (3) Rhabdomyolysis: Qualifiers: Rhabdomyolysis type: non-traumatic Qualified Code(s): M62.82 - Rhabdomyolysis Code(s): M62.82 - Rhabdomyolysis Status: Acute Assessment and Plan: -total CK 1325 on admission -s/p IV fluids -resolved (4) BPH (benign prostatic hyperplasia): Qualifiers: Lower urinary tract symptom detail: incomplete bladder emptying Lower urinary tract symptom presence: symptoms present Qualified Code(s): N40.1 - Benign prostatic hyperplasia with lower urinary tract symptoms; R39.14 - Feeling of incomplete bladder emptying Code(s): N40.0 - Benign prostatic hyperplasia without lower urinary tract symptoms Status: Acute Assessment and Plan: -f/u with outpatient urologist as scheduled -continue with finasteride (5) Chronic anticoagulation: Code(s): Z79.01 - terminal operations manager (current) use of anticoagulants Status: Acute Assessment and Plan: -check PT INR daily -continue with warfarin if he is therapeutic between 2.0 and 3.0 -due to paroxysmal atrial fibrillation -patient recommended to f/u with PCP within 1 week of discharge for PT/INR, voiced understanding (6) Paroxysmal atrial fibrillation: Code(s): I48.0 - Paroxysmal atrial fibrillation Status: Acute Assessment and Plan: -continue with metoprolol with parameters for blood pressure and heart rate -continue with warfarin for anticoagulation (7) Essential (primary) hypertension: Code(s): I10 - Essential (primary) hypertension Status: Acute Assessment and Plan: -his blood pressure was low earlier. Continue with metoprolol with parameters. -Lisinopril was held due to MUNIR, was restarted prior to discharge DS: Summary Hospital Course Hospital Course: This is a 84-year-old male patient who has a history of paroxysmal atrial fibrillation, HTN, gout and BPH. The family noticed that the patient was moving slower and was somewhat confused over the last couple days. His daughter also noticed that he is urinating more frequently. The patient has had several ground level falls but did not sustain any noticeable injuries. Patient was admitted for UTI, acute rhabdomyolysis, MUNIR. Patient was treated with IV fluids, IV ceftriaxone and PT/OT was consulted. Patients symptoms improved during hospitalization. Patients lisinopril was held due to his MUNIR and was restarted on discharge. Patients urine culture showed no growth, however patient did improve with the course of IV ceftriaxone. Patients INR was elevated on admission at 3.5 and warfarin was held. Warfarin was restarted. Patient instructed to fo.llow up with PCP and to have PT/INR checked in 1 week to ensure his INR is therapeutic on his home dose. Patient and voiced understanding. Patient discharged home. Patient will follow up with PCP if he would like to attend PT as an outpatient. Time Spent with Patient Time attestation: Total time spent providing and/or coordinating discharge services: 35 Minutes Exam Narrative: General: well appearing, appears stated age. HEENT: normocephalic, . Mucous membranes moist. EOMI, PERRLA, bilateral sclera anicteric, no conjunctival injection. Neck supple without JVD, lymphadenopathy, or bruit. Respiratory: clear to ascultation bilaterally. No rales/rhonic/wheezes. Cardiovascular: Regular rate and rhythm, normal S1-S2 upon ascultation. No murmurs, rubs, or clicks. PMI is nondisplaced, capillary refill less than 3 second. Abdomen: Soft, round, no pulsatile masses, nondistended and nontender. No rebound, no guarding. No CVA tenderness, no hepatosplenomegaly. Bowel sounds present to all four quadrants. No high pitch or tinkling sounds, resonant to percussion. Extremities: No cyanosis, clubbing, or edema present. Pulses are palpable 2/2. Active ROM to all four extremities. Neuro: Alert and orientated x 4. PERRLA. Cranial nerves 2-12 intact without focal deficit. Skin: Warm, dry, and intact, without rash, erythema, or lesion. Psych: pleasant, cooperative, normal speech, normal affect, no hallucinations, no dysarthia DS: Data Data Completed and Pending Labs on day of discharge: Labs from last 24 hours 04/20/25 04:43 WBC 6.4 RBC 3.83 L Hgb 11.6 L Hct 35.4 L MCV 92.4 MCH 30.3 MCHC 32.8 RDW 15.4 H Plt Count 165 MPV 9.5 Immature Gran % (Auto) 0.5 Neut % (Auto) 68.4 Lymph % (Auto) 16.6 L Campbell % (Auto) 10.9 H Eos % (Auto) 3.1 Baso % (Auto) 0.5 Lymph # (Auto) 1.07 Campbell # (Auto) 0.7 H Eos # (Auto) 0.2 Baso # (Auto) 0.0 Abs Immat Gran (auto) 0.03 Absolute Neuts (auto) 4.4 Absolute Nucleated RBC 0.000 Nucleated RBC % 0.0 PT 17.5 H D INR 1.5 Sodium 136 L Potassium 3.8 Chloride 106 Carbon Dioxide 26 Anion Gap 4 BUN 25 H D Creatinine 0.93 Estim Creat Clear Calc 51 Estimated GFR > 60 Glucose 109 Calcium 8.2 L Total Bilirubin 1.1 AST 40 ALT 40 Alkaline Phosphatase 64 Total Creatine Kinase 111 Total Protein 5.9 L Albumin 3.0 L Preliminary micro results at discharge 04/17/25 19:29 Blood Culture - Preliminary Blood 04/17/25 18:32 Blood Culture - Preliminary Blood Discharge Plan Discharge Attending physician on discharge: Jose Manuel Porter Consulting providers: Hayley Falk Discharging Clinician: Hayley Falk Patient Disposition: Home Activity: may shower and as tolerated Diet: heart healthy Patient Instructions: Antibiotic Form Patient Language: Amharic Stand Alone Forms: General Discharge Information Follow-up/Referrals: Dony Harkins DO [Primary Care Provider, Internal Medicine] Referral Note: see 1-2 weeks after discharge. Ask for a PT/INR blood test to be done in 1 week to check if your warfarin dose is still at the appropriate level. Discharge Medications: Continued acetaminophen [Tylenol Extra Strength] 500 mg tablet 1,000 mg PO .q12 PRN (Reason: pain) Avastin 25 mg/mL solution See Rx Instructions intravitreal .2M Rx Instructions: intravitreal 2M; pt gets outpt center warfarin 4 mg tablet 4 mg PO .COMPLEX Rx Instructions: 4 mg orally 4 times per week; metoprolol succinate [Toprol XL] 25 mg tablet extended release 24 hr 25 mg PO DAILY Qty: 90 1RF lisinopril 20 mg tablet 20 mg PO DAILY Qty: 90 1RF allopurinol 300 mg tablet 300 mg PO HS Qty: 90 1RF finasteride 5 mg tablet See Rx Instructions .ROUTE .COMPLEX Qty: 30 5RF Dose Instruction: TAKE 1 TABLET BY MOUTH IN THE MORNING Rx Instructions: TAKE 1 TABLET BY MOUTH IN THE MORNING tamsulosin 0.4 mg capsule See Rx Instructions .ROUTE .COMPLEX Qty: 30 5RF Dose Instruction: Take 1 capsule by mouth in the morning Rx Instructions: Take 1 capsule by mouth in the morning warfarin 3 mg tablet See Rx Instructions .ROUTE .COMPLEX Qty: 30 5RF Dose Instruction: Take 1 tablet by mouth once daily Rx Instructions: Take 1 tablet by mouth once daily Date of admission: 04/17/25 20:06 Primary Care Provider: Dony Harkins Admitting Provider: Jose Manuel Porter Attending physician on admission: Jose Manuel Porter Condition: Stable Quality VTE Prophylaxis VTE prophylaxis: pharmacologic ordered (With PT INR therapeutic)
--- NOTE | 2025-04-23 07:16 | WPDCDIQUERY2 ---
CDI Query Clarification Request ER documented sepsis, Please clarify if sepsis has been ruled in or ruled out This is a 84-year-old male patient who has a history of paroxysmal atrial fibrillation, HTN, gout and BPH. The family noticed that the patient was moving slower and was somewhat confused over the last couple days. His daughter also noticed that he is urinating more frequently. The patient has had several ground level falls but did not sustain any noticeable injuries. Patient seen and examined for follow up. Patient seen in his room, sitting up in the chair, in no acute distress. Patient denies acute pain. Patients x-ray reviewed from yesterday with no notable fluid overload. Patient's CK level improving, kidney function improving. IV fluids ordered x 24 hours at a low rate to prevent fluid overload. Continue IV ceftriaxone while awaiting final urine and blood cultures. Patient's blood pressure still on low side, continue holding home lisinopril for now. PT/OT ordered. Discussed plan with patient and patient's family. ER documented: Clinical Impression: Acute UTI, Sepsis Hospitalist documented: (1) Acute UTI: Code(s): N39.0 - Urinary tract infection, site not specified Status: Acute Assessment and Plan: -the patient was started on Rocephin .-urine cultures have been ordered -blood cultures have been ordered -the patient was given IV boluses in the emergency room.(chest x-ray has been ordered to rule out fluid overload). If chest x-ray is clear will continue with low rate IV fluids -may also consider Urology consult for hematuria, patient sees urology as outpatient -IV fluids ordered at 50 ml/hr for 24 hours -AM labs (2) Acute renal failure: Code(s): N17.9 - Acute kidney failure, unspecified Status: Acute Assessment and Plan: -the patient was given IV fluids. -the patient's lisinopril was placed on hold. -BUN 56 with a baseline anywhere from 30 to 43. Creatinine 1.59 with a normal baseline. -improving -IV fluids ordered x 24 hours -AM labs (3) Rhabdomyolysis: Qualifiers: Rhabdomyolysis type: non-traumatic Qualified Code(s): M62.82 - Rhabdomyolysis Code(s): M62.82 - Rhabdomyolysis Status: Acute Assessment and Plan: -total CK 1325 on admission -Improving, 309 today -IV fluids ordered x 24 hous -daily CK (4) BPH (benign prostatic hyperplasia): Qualifiers: Lower urinary tract symptom detail: incomplete bladder emptying Lower urinary tract symptom presence: symptoms present Qualified Code(s): N40.1 - Benign prostatic hyperplasia with lower urinary tract symptoms; R39.14 - Feeling of incomplete bladder emptying Code(s): N40.0 - Benign prostatic hyperplasia without lower urinary tract symptoms Status: Acute Assessment and Plan: -f/u with outpatient urologist as scheduled -continue with finasteride (5) Chronic anticoagulation: Code(s): Z79.01 - termite control service representative (current) use of anticoagulants Status: Acute Assessment and Plan: -check PT INR daily -continue with warfarin if he is therapeutic between 2.0 and 3.0 -due to paroxysmal atrial fibrillation (6) Paroxysmal atrial fibrillation: Code(s): I48.0 - Paroxysmal atrial fibrillation Status: Acute Assessment and Plan: -continue with metoprolol with parameters for blood pressure and heart rate -continue with warfarin for anticoagulation (7) Essential (primary) hypertension: Code(s): I10 - Essential (primary) hypertension Status: Acute Assessment and Plan: -his blood pressure was low earlier. Continue with metoprolol with parameters. -Hold lisinopril for now due to acute renal failure, continue to hold until BP is higher WBC: 14.4, 13.0 Lactic: 1.7, 1.2, 1.1 Blood Culture, Routine Preliminary 04/22/25-1408 LC Organism: Serratia marcescens *ABNORMAL* Recovered from aerobic bottle only. CALLED AND HAD PRELIM READ BACK BY STEPHANI Allison ON 04/20/25 @ 4:40PM Blood Culture, Routine Preliminary 04/21/25-1208 LC No growth in 48 hours. 04/17 at 17:56 documented temp of 100.7 and b/p 99/42
== END 2025-04-20 13:38 | disposition home or self-care (01) | DRG 690 ==
LOC: ANHED 19:47 → ANH2MED 20:39
PROVIDERS: Family Medicine; Nurse Practitioner; Admitting Provider Internal Medicine; Emergency Provider Emergency Medicine; PCP Internal Medicine; Visit Provider Nurse Practitioner Adult Health
DX: N39.0 Urinary tract infection, site not specified (principal); N17.9 Acute kidney failure, unspecified; M62.82 Rhabdomyolysis; N40.1 Benign prostatic hyperplasia with lower urinary tract symptoms; R39.14 Feeling of incomplete bladder emptying; I10 Essential (primary) hypertension; I48.0 Paroxysmal atrial fibrillation; M10.9 Gout, unspecified; R29.6 Repeated falls; Z20.822 Contact with and (suspected) exposure to COVID-19; Z96.653 Presence of artificial knee joint, bilateral; Z79.01 Long term (current) use of anticoagulants; Z79.899 Other long term (current) drug therapy; Z87.891 Personal history of nicotine dependence
CPT/HCPCS: 36415; 36600; 71045; 80048; 80053; 81001; 82550; 82805; 83605; 83735; 85018; 85025; 85610; 87040; 87086; 87186; 87637; 93005; 94640; 96365; 97116; 97161; 97166; 99285; A9270; J0696; J1938; J7030

== ENCOUNTER 2025-04-24 09:27 | Inpatient (IN) | payer MEDICARE, OTHER, SELFPAY ==
[2025-04-24] VITALS (37 sets, daily range): BP systolic 103–158; BP diastolic 51–80; PULSE 61–159; RESP 18–29; TEMP 36.7–37.4; O2SAT 88–100; BMI 25.9
--- NOTE | ~2025-04-24 | XR_ITS ---
Examination: XR chest 2V Clinical History: new onset weakness Comparison: 04/18/2025 Technique: PA and Lateral Findings: Cardiomediastinal silhouette normal size and configuration. Emphysema and chronic interstitial changes. No acute bony abnormality. IMPRESSION: 1. No acute cardiopulmonary findings. Reviewed, dictated and finalized at location R.
--- NOTE | 2025-04-24 09:35 | ECG_ITS ---
Test Date: 2025-04-24 09:50:16 Measurements Intervals Spring Rate: 87 P: 63 NM: 148 QRS: -50 QRSD: 112 T: 50 QT: 362 QTc: 438 Interpretive Statements SINUS RHYTHM RIGHT BUNDLE BRANCH BLOCK [120+ ms QRS DURATION, UPRIGHT V1, 40+ ms S IN I/aVL/V4/V5/V6] LEFT ANTERIOR FASCICULAR BLOCK [QRS AXIS <= -45, QR IN I, RS IN II] ABNORMAL ECG Compared to ECG 04/17/2025 18:24:41 No significant changes Electronically Signed On 04-25-2025 15:40:22 CDT by Kristopher Lora M.D.
[2025-04-24 09:59] LABS: Hematocrit 37.4 % (42.0-52.0); Hemoglobin 11.7 g/dL (14.0-18.0); Immature Granulocyte Percent A 1.2 % (0-0.5); Lymphocytes Absolute Auto 1.02 K/mm3 (0.9-3.2); Mean Corpuscular HGB Conc 31.3 g/dl (32-36); Mean Corpuscular Hemoglobin 29.7 pg (26-34); Mean Corpuscular Volume 94.9 fl (80-100); Nucleated Red Blood Cells Absolute Auto 0.000 K/mm3 (0.0-0.012); Nucleated Red Blood Cells Perc 0.0 % (0.0-0.2); Platelet Count Result 299 k/mm3 (150-375); Red Blood Count 3.94 M/mm3 (4.6-6.20); White Blood Count 7.5 K/mm3 (4.5-10.0)
[2025-04-24 10:05] LABS: Add Urine Microscopic? YES; Appearance Urine Clear (Clear); Glucose Urine UA Negative (Negative); Leukocyte Esterase Ur Trace LEU/UL (Negative); Nitrate Urine Negative (Negative); Non Pathogenic Casts 0-2; Specific Grav Ur 1.012 (1.001-1.035)
[2025-04-24 10:17] LABS: Alanine Aminotransferase 32 U/L (6-50); Albumin Level 3.5 g/dL (3.5-5.1); Alkaline Phosphatase 63 U/L (38-126); Anion Gap 7 mmol/L (4-12); Aspartate Amino Transferase 31 U/L (17-59); Bilirubin,Total 1.0 mg/dL (0.2-1.3); Blood Urea Nitrogen 21 mg/dL (9-20); Calcium 8.4 mg/dL (8.4-10.2); Carbon Dioxide 30 mmol/L (22-30); Chloride 98 mmol/L (98-107); Estimated CRCL calculation 51 ml/min; Estimated Glomerular Filt Rate > 60; Glucose 106 mg/dL (65-110); Potassium 4.5 mmol/L (3.4-5.0); Sodium 135 mmol/L (137-145); Total Protein 6.7 g/dL (6.3-8.2)
--- NOTE | 2025-04-24 11:20 | ED_ITS ---
HPI - General Adult General Chief complaint: Weakness Stated complaint: diarrhea and weakness Time Seen by Provider: 04/24/25 09:34 History of Present Illness HPI narrative: 84-year-old male present to the emergency department for evaluation for worsening generalized weakness. Patient was recently admitted for worsening lower extremity weakness and this was attributed to urinary tract infection. Patient had a urine culture on Wednesday that was reportedly negative. Patient had worsening weakness this morning and was unable to ambulate. Patient began having no worsening diarrhea today as well. Patient does have history of COPD and is having wheeze on initial evaluation. Related Data Home Medications ?Medication ?Instructions ?Recorded ?Confirmed ?Last Taken ?Type acetaminophen 500 mg tablet 1,000 mg PO .q12 PRN pain 03/27/25 04/24/25 04/17/25 09:00 History (Tylenol Extra Strength) bevacizumab 25 mg/mL intravenous See Rx Instructions i ntravitreal 03/27/25 04/24/25 02/14/25 History solution (Avastin) .2M warfarin 4 mg tablet 4 mg PO .COMPLEX 03/27/2504/22/25 History Allergies Allergy/AdvReac Type Severity Reaction Status Date / Time No Known Allergies Allergy Verified 04/24/25 09:43 Review of Systems 2 Review of Systems: All systems reviewed & are unremarkable except as noted in HPI and below PMFSH Past Medical History Medical History (Updated 04/24/25 @ 14:02 by Ruben Bhatt MD) COPD (chronic obstructive pulmonary disease) Chronic anticoagulation Right knee DJD Left knee DJD BPH (benign prostatic hyperplasia) Prostatitis Gastritis Abdominal aneurysm Hyperbilirubinemia Gout Rhabdomyolysis Immunization counseling Screening, lipid Essential (primary) hypertension Surgical History Surgical History Cataract extraction status 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 Treviño S/P total knee arthroplasty RT TKA 05/16/24- Dr. Treviño Status post right knee replacement (~05/2024) Family History Family History Sibling Hypertension Mother Family history of Alzheimer's disease Social History Social History Social History: Caffeine- rarely Smoking packs per day: 1 Smoking cigarettes per day: 20.0 Years smoked: 40 Smoking pack-years: 40.00 Smoking status: Former smoker Tobacco type: cigarettes Second hand tobacco smoke exposure: No Additional smoking assessment comments: at least 20 years ago Alcohol intake: never Substance use: never Substance use type: does not use Do You Feel Safe in your Home?: Yes Lack of Transportation: No Lack of Food: Never True Current Housing: I Have Housing Concerned About Future Housing: No Difficulty Paying Gas/Electric Bills: No Difficulty Paying for Meds: No Currently Unemployed: No Education: High School Diploma/GED Difficulty w/ Childcare or Family Care: No Living arrangements: with family Additional living arrangements comments: Occupation/Education: retired Sexual Orientation (if Verbalized by the Patient): Straight or Heterosexual Spiritual care concerns: No Exam 2 Narrative: APPEARANCE: Ill-appearing HEAD: normocephalic, atraumatic. EYES: PERRLA/EOMI, conjunctivae clear. NOSE: Normal no drainage EARS:TMS clear with good light reflex. THROAT: Pharynx clear, no exudate. NECK: Supple. No adenopathy, no masses. RESPIRATORY: Expiratory wheeze CARDIOVASCULAR: Normal sinus rhythm ABDOMINAL: Soft, nontender, nondistended, normal bowel sounds MUSCULOSKELETAL: Moves all extremities. Strength/ROM intact, No edema, No calf tenderness. NEURO: Alert. Cranial nerves II through XII intact. Good gait. Good coordination SKIN: Warm, dry. Normal Color Course Vital Signs Vital signs: Vital Signs Temperature 99 F 04/24/25 09:28 Pulse Oximetry 96 04/24/25 09:28 Oxygen Delivery Room Air 04/24/25 09:28 Temperature 98.7 F 04/24/25 16:19 Pulse Rate 95 04/24/25 16:19 Respiratory Rate 26 H 04/24/25 16:19 Blood Pressure 131/70 04/24/25 16:19 Pulse Oximetry 90 04/24/25 16:19 Oxygen Delivery Nasal Cannula 04/24/25 13:34 Oxygen Flow Rate 2 04/24/25 13:34 Medical Decision Making MDM Narrative Medical decision making narrative: 84-year-old male presents emergency department for evaluation for increased generalized weakness. Patient was just evaluated emergency department for similar symptoms and was diagnosed with urinary tract infection. Patient arrived and normal sinus rhythm and patient was afebrile with no leukocytosis hemoglobin 11.7. Patient has no significant acute abnormalities on his CMP UA was negative for infection. Patient was negative for influenza RSV was positive for COVID. Chest x-ray shows no acute cardiopulmonary abnormality. Patient does have history of CP did have extensive wheeze on exam and patient was treated with Solu-Medrol and a nebulized albuterol treatment and patient does feel improved. Patient did still have some oxygen requirement was placed on 2 L of oxygen by nasal cannula. While patient did arrive in normal sinus rhythm he did convert to AFib with RVR. Patient has no prior history of RVR. Patient was started on Cardizem bolus and infusion the emergency department. Patient initially was staffed with the hospitalist and was [place] [facility] [place] but with the rate change patient will go to IMU on a Cardizem infusion. Family updated the results of the workup and plan for admission. All questions concerns were addressed. Prior to going to the floor patient did convert back to normal sinus rhythm. Cardizem infusion was held Critical Care Procedure Note Authorized and Performed by: Ruben Bhatt Total critical care time: Approximately 36 minutes Due to a high probability of clinically significant, life threatening deterioration, the patient required my highest level of preparedness to intervene emergently and I personally spent this critical care time directly and personally managing the patient. This critical care time included obtaining a history; examining the patient; pulse oximetry; ordering and review of studies; arranging urgent treatment with development of a management plan; evaluation of patient's response to treatment; frequent reassessment; and, discussions with other providers. This critical care time was performed to assess and manage the high probability of imminent, life-threatening deterioration that could result in multi-organ failure. It was exclusive of separately billable procedures and treating other patients and teaching time. Please see MDM section and the rest of the note for further information on patient assessment and treatment. Differential Diagnosis Differential Diagnosis: Sinus tachycardia, AFib with RVR, dehydration, urinary tract infection, COVID, RSV, influenza, pneumonia, deconditioning Vital Signs Vital Signs: Vital Signs Temperature 99 F 04/24/25 09:28 Pulse Oximetry 96 04/24/25 09:28 Oxygen Delivery Room Air 04/24/25 09:28 Temperature 98.7 F 04/24/25 16:19 Pulse Rate 95 04/24/25 16:19 Respiratory Rate 26 H 04/24/25 16:19 Blood Pressure 131/70 04/24/25 16:19 Pulse Oximetry 90 04/24/25 16:19 Oxygen Delivery Nasal Cannula 04/24/25 13:34 Oxygen Flow Rate 2 04/24/25 13:34 Lab Data Lab results reviewed: Yes I reviewed the patient's lab results. 04/24/25 09:47 04/24/25 09:47 Labs: Lab Results 04/24/25 04/24/25 04/24/25 Range/Units 09:34 09:47 09:48 WBC 7.5 (4.5-10.0) K/mm3 RBC 3.94 L (4.6-6.20) M/mm3 Hgb 11.7 L (14.0-18.0) g/dL Hct 37.4 L (42.0-52.0) % MCV 94.9 (80-100) fl MCH 29.7 (26-34) pg MCHC 31.3 L (32-36) g/dl RDW 15.7 H (11.5-14.5) % Plt Count 299 D (150-375) k/mm3 MPV 8.6 (7.4-10.4) fl Immature Gran % (Auto) 1.2 H (0-0.5) % Neut % (Auto) 74.2 H (45.5-73.1) % Lymph % (Auto) 13.7 L (18.3-44.2) % [place] % (Auto) 10.2 H (2.6-8.5) % Eos % (Auto) 0.3 (0-4.4) % Baso % (Auto) 0.4 (0.2-1.2) % Lymph # (Auto) 1.02 (0.9-3.2) K/mm3 [place] # (Auto) 0.8 H (0.1-0.6) K/mm3 Eos # (Auto) 0.0 (0-0.3) K/mm3 Baso # (Auto) 0.0 (0.0-0.1) K/mm3 Abs Immat Gran (auto) 0.09 H (0.00-0.031) K/mm3 Absolute Neuts (auto) 5.5 (1.3-6.7) K/mm3 Absolute Nucleated RBC 0.000 (0.0-0.012) K/mm3 Nucleated RBC % 0.0 (0.0-0.2) % Sodium 135 L (137-145) mmol/L Potassium 4.5 (3.4-5.0) mmol/L Chloride 98 (98-107) mmol/L Carbon Dioxide 30 (22-30) mmol/L Anion Gap 7 (4-12) mmol/L BUN 21 H (9-20) mg/dL Creatinine 0.94 (0.7-1.3) mg/dL Estim Creat Clear Calc 51 ml/min Estimated GFR > 60 (59 - ) Glucose 106 (65-110) mg/dL Calcium 8.4 (8.4-10.2) mg/dL Magnesium 2.1 (1.6-2.3) mg/dL Total Bilirubin 1.0 (0.2-1.3) mg/dL AST 31 (17-59) U/L ALT 32 (6-50) U/L Alkaline Phosphatase 63 (38-126) U/L NT-Pro-B Natriuret Pep 5710 H (19.9-100) pg/mL Total Protein 6.7 (6.3-8.2) g/dL Albumin 3.5 (3.5-5.1) g/dL TSH (Reflex) 0.869 (0.465-4.68) uIU/mL Urine Color Yellow (Yellow) Urine Appearance Clear (Clear) Urine pH 5.5 (5.0-9.0) Ur Specific [place] 1.012 (1.001-1.035) Urine Protein Trace (Negative) mg/dL Urine Glucose (UA) Negative (Negative) mg/dL Urine Ketones Negative (Negative) mg/dL Ur Blood (Man) Trace (Negative) Urine Nitrate Negative (Negative) Urine Bilirubin Negative (Negative) Urine Urobilinogen 0.2 (<2.0) mg/dL Leukocyte Esterase Rfl Trace H (Negative) ALYCE/UL Urine RBC 0-2 (0-2) /hpf Urine WBC 0-5 (0-3) /hpf Ur Squamous Epith Cells None seen (Few) /hpf Urine Bacteria None seen /hpf Urine Casts 0-2 Influenza A (RT-PCR) (Negative) Influenza B (RT-PCR) (Negative) RSV (RT-PCR) (Negative) SARS-CoV-2 RNA (RT-PCR) (Negative) 04/24/25 Range/Units 11:57 WBC (4.5-10.0) K/mm3 RBC (4.6-6.20) M/mm3 Hgb (14.0-18.0) g/dL Hct (42.0-52.0) % MCV (80-100) fl MCH (26-34) pg MCHC (32-36) g/dl RDW (11.5-14.5) % Plt Count (150-375) k/mm3 MPV (7.4-10.4) fl Immature Gran % (Auto) (0-0.5) % Neut % (Auto) (45.5-73.1) % Lymph % (Auto) (18.3-44.2) % [place] % (Auto) (2.6-8.5) % Eos % (Auto) (0-4.4) % Baso % (Auto) (0.2-1.2) % Lymph # (Auto) (0.9-3.2) K/mm3 [place] # (Auto) (0.1-0.6) K/mm3 Eos # (Auto) (0-0.3) K/mm3 Baso # (Auto) (0.0-0.1) K/mm3 Abs Immat Gran (auto) (0.00-0.031) K/mm3 Absolute Neuts (auto) (1.3-6.7) K/mm3 Absolute Nucleated RBC (0.0-0.012) K/mm3 Nucleated RBC % (0.0-0.2) % Sodium (137-145) mmol/L Potassium (3.4-5.0) mmol/L Chloride (98-107) mmol/L Carbon Dioxide (22-30) mmol/L Anion Gap (4-12) mmol/L BUN (9-20) mg/dL Creatinine (0.7-1.3) mg/dL Estim Creat Clear Calc ml/min Estimated GFR (59 - ) Glucose (65-110) mg/dL Calcium (8.4-10.2) mg/dL Magnesium (1.6-2.3) mg/dL Total Bilirubin (0.2-1.3) mg/dL AST (17-59) U/L ALT (6-50) U/L Alkaline Phosphatase (38-126) U/L NT-Pro-B Natriuret Pep (19.9-100) pg/mL Total Protein (6.3-8.2) g/dL Albumin (3.5-5.1) g/dL TSH (Reflex) (0.465-4.68) uIU/mL Urine Color (Yellow) Urine Appearance (Clear) Urine pH (5.0-9.0) Ur Specific [place] (1.001-1.035) Urine Protein (Negative) mg/dL Urine Glucose (UA) (Negative) mg/dL Urine Ketones (Negative) mg/dL Ur Blood (Man) (Negative) Urine Nitrate (Negative) Urine Bilirubin (Negative) Urine Urobilinogen (<2.0) mg/dL Leukocyte Esterase Rfl (Negative) ALYCE/UL Urine RBC (0-2) /hpf Urine WBC (0-3) /hpf Ur Squamous Epith Cells (Few) /hpf Urine Bacteria /hpf Urine Casts Influenza A (RT-PCR) Negative (Negative) Influenza B (RT-PCR) Negative (Negative) RSV (RT-PCR) Negative (Negative) SARS-CoV-2 RNA (RT-PCR) Positive A (Negative) Imaging Data Radiologist's impression: Impressions Chest X-Ray 04/24/25 10:18 IMPRESSION: 1. No acute cardiopulmonary findings. ECG Data EKG #1: EKG Interpretation: normal rate, sinus rhythm, no ectopy, no ST changes, RBBB and no acute changes Critical Care Time Critical Care Time Critical Care Time: Yes Total Critical Care Time: 36 Discharge Plan Discharge Clinical Impression: COVID, Weakness, Adult failure to thrive, COPD (chronic obstructive pulmonary disease), Hypoxia, Atrial fibrillation Patient Disposition: Still a Patient Condition: Serious
[2025-04-24] MEDS: ALBUTEROL SULFATE NEB 2.5 MG/3 ML INH 5 MG INHALATION (11:33)
[2025-04-24] MEDS: LACTATED RINGERS 1,000 ML 999 ML IV CONT (11:37)
[2025-04-24 12:36] LABS: Influenza A QL RT-PCR Negative (Negative); Influenza B QL RT-PCR Negative (Negative); RSV RNA, RT-PCR Negative (Negative); SARS-CoV-2 RNA PCR Positive (Negative)
--- NOTE | 2025-04-24 13:14 | PM.IMHP ---
H&P: HPI History of Present Illness Date/Time: 04/24/25 13:14 Chief Complaint: Diarrhea, Weakness Narrative: 84 y/o M with PMH of PH, abdominal aneurysm, gout, rhabdomyolysis, and hypertension presents here with diarrhea and generalized weakness. The patient was recently admitted to [facility] from [id number] for a suspected UTI, MUNIR, and rhabdomyolysis. He was treated with IV fluids and 3 days of Rocephin. Since discharge home he has felt intermittently weak, more so in the afternoon. Patient then developed diarrhea and generalized weakness starting last night on 04/23. He reports he was so profoundly weak he was unable to get up to go to the bathroom last night and unable to get up and get around for his normal activities this morning. He denies associated chest pain, fever, chills, body aches, nausea, or vomiting. Initial VS at presentation: 99? F, HR 88, R 18, 158/74, and 96% on RA. ED workup showed: No leukocytosis, hemoglobin 11.7 (similar to previous (, no significant electrolyte derangements, creatinine 0.94 and GFR >60, UA showed trace leuk esterase otherwise unremarkable. Patient tested positive for COVID on 04/24. CXR showed no acute cardiopulmonary findings. EKG showed sinus rhythm, right bundle branch block, left anterior fascicular block, rate 87. 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 Treviño S/P total knee arthroplasty RT TKA 05/16/24- Dr. Treviño Status post right knee replacement (~05/2024) Family History Family History Sibling Hypertension Mother Family history of Alzheimer's disease Social History Social History Social History: Caffeine- rarely Smoking packs per day: 1 Smoking cigarettes per day: 20.0 Years smoked: 20 Smoking pack-years: 20.00 Smoking status: Former smoker Tobacco type: cigarettes Second hand tobacco smoke exposure: No Additional smoking assessment comments: at least 20 years ago Alcohol intake: never Substance use: never Substance use type: does not use Do You Feel Safe in your Home?: Yes Lack of Transportation: No Lack of Food: Never True Current Housing: I Have Housing Concerned About Future Housing: No Difficulty Paying Gas/Electric Bills: No Difficulty Paying for Meds: No Currently Unemployed: No Education: High School Diploma/GED Difficulty w/ Childcare or Family Care: No Living arrangements: with family Additional living arrangements comments: Occupation/Education: retired Sexual Orientation (if Verbalized by the Patient): Straight or Heterosexual Spiritual care concerns: No Meds Home Medications and Allergies Home Medications ?Medication ?Instructions ?Recorded ?Confirmed ?Type lisinopril 20 mg tablet 20 mg PO DAILY #90 tabs 02/06/25 04/17/25 Rx metoprolol succinate 25 mg 25 mg PO DAILY #90 tabs 02/06/25 04/17/25 Rx tablet,extended release 24 hr (Toprol XL) allopurinol 300 mg tablet 300 mg PO HS #90 tabs 02/12/25 04/17/25 Rx finasteride 5 mg tablet See Rx Instructions .Route 02/20/25 04/17/25 Rx .COMPLEX #30 tabs tamsulosin 0.4 mg capsule See Rx Instructions .Route 02/27/25 04/17/25 Rx .COMPLEX #30 caps acetaminophen 500 mg tablet 1,000 mg PO .q12 PRN pain 03/27/25 04/17/25 History (Tylenol Extra Strength) bevacizumab 25 mg/mL intravenous See Rx Instructions intravitreal 03/27/25 04/19/25 History solution (Avastin) .2M warfarin 4 mg tablet 4 mg PO .COMPLEX 03/27/25 04/17/25 History warfarin 3 mg tablet See Rx Instructions .Route 04/13/25 04/17/25 Rx .COMPLEX #30 tabs Allergies Allergy/AdvReac Type Severity Reaction Status Date / Time No Known Allergies Allergy Verified 04/24/25 09:43 Vital Signs Vital Signs - 24 hr 04/24/25 09:28 04/24/25 09:40 04/24/25 09:43 Temperature 99 F 98.1 F Pulse Rate 88 97 Respiratory Rate 18 Blood Pressure 158/74 H Pulse Oximetry 96 04/24/25 11:00 04/24/25 11:33 04/24/25 11:42 Temperature Pulse Rate 92 100 89 Respiratory Rate 21 H 29 H 27 H Blood Pressure 131/65 Pulse Oximetry 95 04/24/25 12:00 Temperature Pulse Rate 97 Respiratory Rate 20 Blood Pressure 158/80 H Pulse Oximetry Exam Const: General: comfortable and no acute distress Other: , male, elderly, nontoxic appearance HENMT: Face/Nose/Sinus: Normal nares present Mouth: Yes moist mucous membranes Eyes: General: appearance normal, both eyes and all related structures Sclera: sclerae normal Pupils: Equal, round and reactive pupils present EOM: EOMs intact bilaterally Resp: Effort & Inspection: normal respiratory effort Auscultation: clear to auscultation bilaterally Cardio: Rate: tachycardic (Consistent with AFib) Rhythm: abnormal rhythm Other: S1-S2 present without murmur, rub, ectopy GI: Other: Abdomen soft, nondistended, nontender. Normoactive bowel sounds in all quadrants. Skin: General skin exam: normal color and no rashes or lesions noted Wounds: no wounds Neuro: Speech: normal speech Motor exam (neuro): 5/5 motor strength present throughout Sensory Exam: normal sensation Other: A&O x4 Extrem: Other: Trace edema to bilateral lower extremities, symmetric Psych: Mental Status: mental status grossly normal Affect: normal affect Other: Good insight and judgment, pleasant H&P: Results Labs Labs: Short CBC 04/24/25 Range/Units 09:47 WBC 7.5 (4.5-10.0) K/mm3 Hgb 11.7 L (14.0-18.0) g/dL Hct 37.4 L (42.0-52.0) % Plt Count 299 D (150-375) k/mm3 BMP 04/24/25 09:47 Sodium 135 L Potassium 4.5 Chloride 98 Carbon Dioxide 30 BUN 21 H Creatinine 0.94 Glucose 106 Calcium 8.4 Liver Function 04/24/25 Range/Units 09:47 Total Bilirubin 1.0 (0.2-1.3) mg/dL AST 31 (17-59) U/L ALT 32 (6-50) U/L Alkaline Phosphatase 63 (38-126) U/L Albumin 3.5 (3.5-5.1) g/dL Urine 04/24/25 Range/Units 09:48 Urine Color Yellow (Yellow) Urine Appearance Clear (Clear) Urine pH 5.5 (5.0-9.0) Ur Specific [place] 1.012 (1.001-1.035) Urine Protein Trace (Negative) mg/dL Urine Glucose (UA) Negative (Negative) mg/dL Assessment and Plan Assessment and plan (1) COVID: Code(s): U07.1 - COVID-19 Status: Acute Assessment and Plan: - symptom onset: 04/23 - tested positive for COVID on: 04/24 - complicating comorbidities: COPD - CXR: No acute cardiopulmonary findings. - Remdesivir 200 mg IVPB x1 then 100 mg x4 for 5 total doses. - if patient develops hypoxia, add dexamethasone 6 mg x10 days or until d/c. - continue patient's anticoagulation - supportive care: DuoNebs p.r.n., Tylenol p.r.n., Tessalon Perles p.r.n., Mucinex flaquito - reporting diarrhea with recent admission, check c.diff. may be symptom of COVID. Will give IV fluids at 100 mL/hr x1L to prevent MUNIR and monitor renal function. - PT/OT for prevention of deconditioning due to [id number] hospitalizations - monitor VS/O2 - monitor daily labs, check CRP (2) Paroxysmal atrial fibrillation: Code(s): I48.0 - Paroxysmal atrial fibrillation Status: Chronic Assessment and Plan: - initial EKG showed NSR - patient went into AFib RVR in the ED, rate in the 130s. Patient did not take his metoprolol dose this morning, will give oral dose now. - continue home medication(s): Metoprolol ER 25 mg daily, warfarin (3) Essential (primary) hypertension: Code(s): I10 - Essential (primary) hypertension Status: Chronic Assessment and Plan: - chronic, currently 158/80 - continue home medications: Lisinopril, metoprolol - monitor Plan Diet: heart healthy GI Prophylaxis: n/a DVT Prophylaxis: Warfarin IV fluids: LR 100 mL/hour x1 L Lines/Tubes: Peripheral IV Code Status: full code Quality VTE Prophylaxis VTE prophylaxis: pharmacologic ordered Hospitalist MIPS Advance Care Plan I have confirmed that the patient's Advanced Care Plan is present, code status is documented, or surrogate decision maker is listed in patient medical record.: Yes Medication Reconciliation I have utilized all available resources to obtain, update and review the patients current medications (includes all prescriptions, OTC, herbals, cannabis, and nutritional supplements).: Yes
--- NOTE | 2025-04-24 13:44 | ECG_ITS ---
Test Date: 2025-04-24 13:53:02 Measurements Intervals [place] Rate: 135 P: 0 SC: 0 QRS: -77 QRSD: 111 T: 39 QT: 321 QTc: 481 Interpretive Statements ATRIAL FIBRILLATION WITH RAPID VENTRICULAR RESPONSE RIGHT BUNDLE BRANCH BLOCK [120+ ms QRS DURATION, UPRIGHT V1, 40+ ms S IN I/aVL/V4/V5/V6] LEFT ANTERIOR FASCICULAR BLOCK [QRS AXIS <= -45, QR IN I, RS IN II] ABNORMAL ECG Compared to ECG 04/24/2025 09:50:16 ATRIAL FIBRILLATION REPLACES SINUS RHYTHM Electronically Signed On 04-25-2025 15:49:02 CDT by Kristopher Lora M.D.
--- NOTE | 2025-04-24 13:59 | PC.NURSE ---
heart healthy diet tray ordered
[2025-04-24] MEDS: dilTIAZem 100 MG/100 ML 100 MG/100 ML BAG IV CONT (14:16)
[2025-04-24] MEDS: METOPROLOL SUCCINATE EXT REL 25 MG TABCR PO (14:19)
[2025-04-24 14:29] LABS: Magnesium 2.1 mg/dL (1.6-2.3)
[2025-04-24] MEDS: REMDESIVIR 200 MG/NS 250 ML 200 MG/250 ML BAG 250 MG IVPB (14:34)
[2025-04-24 14:39] LABS: NT Pro B Type Natriuretic Pept 5710 pg/mL (19.9-100)
--- NOTE | 2025-04-24 15:11 | ECG_ITS ---
Test Date: 2025-04-24 15:16:45 Measurements Intervals [place] Rate: 65 P: 58 MT: 160 QRS: 16 QRSD: 121 T: -38 QT: 458 QTc: 477 Interpretive Statements SINUS RHYTHM WITH OCCASIONAL SUPRAVENTRICULAR PREMATURE COMPLEXES INDETERMINATE AXIS POSSIBLE RIGHT VENTRICULAR CONDUCTION DELAY [RSR (QR) IN V1/V2] SEPTAL MYOCARDIAL INFARCTION , PROBABLY OLD [40+ ms Q WAVE IN V1/V2] MODERATE T-WAVE ABNORMALITY, CONSIDER INFERIOR ISCHEMIA [-0.1+ mV T-WAVE IN II/aVF] ABNORMAL ELECTROCARDIOGRAM+ Compared to ECG 04/24/2025 13:53:02 SINUS RHYTHM REPLACES ATRIAL FIBRILLATION Electronically Signed On 04-25-2025 15:54:12 CDT by Kristopher Lora M.D.
[2025-04-24 15:26] LABS: Thyroid Stimulating Hormone Reflex 0.869 uIU/mL (0.465-4.68)
[2025-04-24] MEDS: LACTATED RINGERS 1,000 ML 100 ML IV CONT (15:40)
--- NOTE | 2025-04-24 16:49 | PCRCNOTE ---
Window of time for administration has passed. See next scheduled administration.
--- NOTE | 2025-04-24 17:14 | ADMGEN ---
This patient, Sachin Mast, was admitted to IMU Room 232-01 at 1619. Patient/family oriented to hospital policies and general routines including ID bracelet, bed and alarms, visiting hours, pain management, procedures, bathroom and other care routines, personal items, smoking policy, room service/diet, and visiting hours. Information on how to activate the Rapid Response Team has been discussed. Patient/Family are encouraged to report perceived risks to care and to ask questions if they do not understand what they are told or what they should do.
[2025-04-24] MEDS: cefTRIAXone 2 GM in SODIUM CHLORIDE 0.9% IV 100 ML 200 ML IVPB (17:47)
[2025-04-24] MEDS: ALBUTEROL SULFATE NEB 2.5 MG/3 ML INH INHALATION (20:15)
[2025-04-24] MEDS: guaiFENesin 12 HR 600 MG TABCR PO (21:07)
[2025-04-25] VITALS (32 sets, daily range): BP systolic 107–145; BP diastolic 58–87; PULSE 69–122; RESP 14–24; TEMP 36.4–37.1; O2SAT 87–100
[2025-04-25] MEDS: ALBUTEROL SULFATE NEB 2.5 MG/3 ML INH INHALATION ×4 (02:10→20:58)
[2025-04-25 04:38] LABS: Hematocrit 37.1 % (42.0-52.0); Hemoglobin 11.5 g/dL (14.0-18.0); Immature Granulocyte Percent A 0.8 % (0-0.5); Lymphocytes Absolute Auto 0.47 K/mm3 (0.9-3.2); Mean Corpuscular HGB Conc 31.0 g/dl (32-36); Mean Corpuscular Hemoglobin 29.6 pg (26-34); Mean Corpuscular Volume 95.6 fl (80-100); Nucleated Red Blood Cells Absolute Auto 0.000 K/mm3 (0.0-0.012); Nucleated Red Blood Cells Perc 0.0 % (0.0-0.2); Platelet Count Result 269 k/mm3 (150-375); Red Blood Count 3.88 M/mm3 (4.6-6.20); White Blood Count 4.8 K/mm3 (4.5-10.0)
[2025-04-25 04:47] LABS: INR 1.5; Prothrombin Time 18.2 Seconds (11.1-14.7)
[2025-04-25 04:49] LABS: Partial Thromboplastin Time 40.7 Seconds (22.3-36.8)
[2025-04-25 05:19] LABS: Alanine Aminotransferase 27 U/L (6-50); Albumin Level 3.2 g/dL (3.5-5.1); Alkaline Phosphatase 55 U/L (38-126); Anion Gap 8 mmol/L (4-12); Aspartate Amino Transferase 29 U/L (17-59); Bilirubin,Total 0.6 mg/dL (0.2-1.3); Blood Urea Nitrogen 24 mg/dL (9-20); CRP 5.0 mg/dL (<1.0); Calcium 7.8 mg/dL (8.4-10.2); Carbon Dioxide 29 mmol/L (22-30); Chloride 101 mmol/L (98-107); Estimated CRCL calculation 51 ml/min; Estimated Glomerular Filt Rate > 60; Glucose 148 mg/dL (65-110); Potassium 4.4 mmol/L (3.4-5.0); Sodium 138 mmol/L (137-145); Total Protein 6.1 g/dL (6.3-8.2)
[2025-04-25] MEDS: METOPROLOL SUCCINATE EXT REL 25 MG TABCR PO (08:41)
[2025-04-25] MEDS: guaiFENesin 12 HR 600 MG TABCR PO ×2 (08:41→20:49)
[2025-04-25] MEDS: TAMSULOSIN HCL 0.4 MG CAPSULE PO (08:42)
[2025-04-25] MEDS: FINASTERIDE 5 MG TABLET PO (08:42)
--- NOTE | 2025-04-25 09:38 | PCRCNOTE ---
Attempted to wean pt off of oxygen. Patients saturation dropped to 87% on room air. Patient was placed back on 2L
--- NOTE | 2025-04-25 09:53 | ECG_ITS ---
Test Date: 2025-04-25 10:20:16 Measurements Intervals [place] Rate: 116 P: 0 DC: 0 QRS: 225 QRSD: 118 T: 149 QT: 347 QTc: 482 Interpretive Statements ATRIAL FIBRILLATION WITH RAPID VENTRICULAR RESPONSE RIGHT BUNDLE BRANCH BLOCK [120+ ms QRS DURATION, UPRIGHT V1, 40+ ms S IN I/aVL/V4/V5/V6] ABNORMAL ECG ATRIAL FIBRILLATION REPLACES SINUS RHYTHM Electronically Signed On 04-25-2025 16:19:51 CDT by Kristopher Lora M.D.
--- NOTE | 2025-04-25 10:09 | PM.CNCAR ---
Assessment and Plan Assessment and plan (1) Paroxysmal atrial fibrillation: Code(s): I48.0 - Paroxysmal atrial fibrillation Status: Chronic Assessment and Plan: [id number] 4. He has it off and on and more so now due to covid infection. Start Sotalol loading as per protocol checking EKG after each dose. On wafarin with goal INR 2-3. (2) Essential (primary) hypertension: Code(s): I10 - Essential (primary) hypertension Status: Chronic Assessment and Plan: Stable. (3) Abdominal aneurysm: Code(s): I71.40 - Abdominal aortic aneurysm, without rupture, unspecified Status: Acute Assessment and Plan: Stable. (4) COVID: Code(s): U07.1 - COVID-19 Status: Acute Assessment and Plan: Treatment as per hospitalist. History of Present Illness History of Present Illness Consult date/time: 04/25/25 10:09 Reason For Visit: covid weakness Narrative: 84 yr old man who is a patient of Dr. Miranda presents for a follow up visit regarding his cardiovascular status. He has a history of PAF, hypertension, AAA, COPD, former smoking. is at bedside. Reports feeling very weak and had some sob and decided to come in to ER. Found he has covid infection and going in and out of rapid atrial fibrillation. He fell a couple of times by tripping. Reports he feels palpitations very occasionally about once a month. He is limited at walking 1/2 mile due to knee pains then VIEIRA. Denies chest pain, orthopnea, PND, edema, dizziness. Cardiovascular Procedures Echo/MUGA:: 03/13/24 Echo: EF 65-70%, grade I diastolic dysfunction (E/e' 12), mild-mod AI, trace MR/TR. 11/26/22 Echo: EF 60-65%, grade II diastolic dysfunction (E/e '10), mild AI. Electrophysiology:: 12/02/23 EKG: Sinus rhythm at 61 bpm. 10/15/22 EKG: Atrial fibrillation at 127 bpm, RBBB, LAFB. 10/15/22 EKG: Sinus rhythm, borderline T wave in inf/high lat leads. Stress Tests:: 11/26/22 Lexiscan myoview: Negative. 02/27/25 US Aorta: Stable 3.9 cm AAA. 10/07/22 CT abd: 3.3 cm fusiform infrarenal AAA. Esophagitis/gastritis. Emphysema. Prostatamegaly. 10/15/22 Venous duplex: No DVT of right leg. Review of Systems Review of Systems: All systems reviewed & are unremarkable except as noted in HPI and below Constitutional: Constitutional: Reports as per HPI, Denies chills, Reports fatigue and Denies fever(s) Cardiovascular: Cardiovascular: Reports as per HPI and Denies chest pain Respiratory: Respiratory: Reports as per HPI and Reports dyspnea Gastrointestinal: Gastrointestinal: Reports as per HPI and Denies abdominal pain Genitourinary: Genitourinary: Reports as per HPI Musculoskeletal: Musculoskeletal: Reports as per HPI Neurologic: Reports as per HPI, Denies dizziness and Denies syncope [facility] Past Medical History Medical History (Updated 04/24/25 @ 14:02 by Ruben Bhatt MD) COPD (chronic obstructive pulmonary disease) Chronic anticoagulation Right knee DJD Left knee DJD BPH (benign prostatic hyperplasia) Prostatitis Gastritis Abdominal aneurysm Hyperbilirubinemia Gout Rhabdomyolysis Immunization counseling Screening, lipid Essential (primary) hypertension Surgical History Surgical History Cataract extraction status 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 Treviño S/P total knee arthroplasty RT TKA 05/16/24- Dr. Treviño Status post right knee replacement (~05/2024) Family History Family History Sibling Hypertension Mother Family history of Alzheimer's disease Social History Social History Social History: Caffeine- rarely Smoking packs per day: 1 Smoking cigarettes per day: 20.0 Years smoked: 40 Smoking pack-years: 40.00 Smoking status: Former smoker Tobacco type: cigarettes Second hand tobacco smoke exposure: No Additional smoking assessment comments: at least 20 years ago Alcohol intake: never Substance use: never Substance use type: does not use Do You Feel Safe in your Home?: Yes Lack of Transportation: No Lack of Food: Never True Current Housing: I Have Housing Concerned About Future Housing: No Difficulty Paying Gas/Electric Bills: No Difficulty Paying for Meds: No Currently Unemployed: No Education: High School Diploma/GED Difficulty w/ Childcare or Family Care: No Living arrangements: with family Additional living arrangements comments: Occupation/Education: retired Sexual Orientation (if Verbalized by the Patient): Straight or Heterosexual Spiritual care concerns: No Meds Home Medications and Allergies Home Medications ?Medication ?Instructions ?Recorded ?Confirmed ?Type metoprolol succinate 25 mg 25 mg PO DAILY #90 tabs 02/06/25 04/24/25 Rx tablet,extended release 24 hr (Toprol XL) allopurinol 300 mg tablet 300 mg PO HS #90 tabs 02/12/25 04/24/25 Rx finasteride 5 mg tablet See Rx Instructions .Route 02/20/25 04/24/25 Rx .COMPLEX #30 tabs tamsulosin 0.4 mg capsule See Rx Instructions .Route 02/27/25 04/24/25 Rx .COMPLEX #30 caps acetaminophen 500 mg tablet 1,000 mg PO .q12 PRN pain 03/27/25 04/24/25 History (Tylenol Extra Strength) bevacizumab 25 mg/mL intravenous See Rx Instructions intravitreal 03/27/25 04/24/25 History solution (Avastin) .2M warfarin 4 mg tablet 4 mg PO .COMPLEX 03/27/25 04/24/25 History warfarin 3 mg tablet See Rx Instructions .Route 04/13/25 04/24/25 Rx .COMPLEX #30 tabs lisinopril 20 mg tablet 20 mg PO HS 04/25/25 04/25/25 History Allergies Allergy/AdvReac Type Severity Reaction Status Date / Time No Known Allergies Allergy Verified 04/24/25 09:43 Vital Signs Vital Signs - 24 hr 04/24/25 11:00 04/24/25 11:33 04/24/25 11:42 Temperature Pulse Rate 92 100 89 Respiratory Rate 21 H 29 H 27 H Blood Pressure 131/65 Pulse Oximetry 95 Oxygen Delivery Oxygen Flow Rate Fraction of Inspired Oxygen 04/24/25 12:00 04/24/25 12:31 04/24/25 13:01 Temperature Pulse Rate 97 116 H 95 Respiratory Rate 20 22 H 28 H Blood Pressure 158/80 H 137/70 143/73 H Pulse Oximetry 88 L Oxygen Delivery Oxygen Flow Rate Fraction of Inspired Oxygen 04/24/25 13:31 04/24/25 13:32 04/24/25 13:34 Temperature 99.4 F Pulse Rate 89 159 H Respiratory Rate 23 H 22 H Blood Pressure 129/63 Pulse Oximetry 98 98 Oxygen Delivery Nasal Cannula Oxygen Flow Rate 2 Fraction of Inspired Oxygen 04/24/25 13:35 04/24/25 13:45 04/24/25 14:00 Temperature Pulse Rate 138 H 141 H 143 H Respiratory Rate 20 23 H Blood Pressure Pulse Oximetry 99 Oxygen Delivery Oxygen Flow Rate Fraction of Inspired Oxygen 04/24/25 14:01 04/24/25 14:15 04/24/25 14:16 Temperature Pulse Rate 144 H 128 H 122 H Respiratory Rate 27 H 28 H Blood Pressure 143/71 H 143/71 H Pulse Oximetry 97 99 Oxygen Delivery Oxygen Flow Rate Fraction of Inspired Oxygen 04/24/25 14:19 04/24/25 14:30 04/24/25 14:32 Temperature 98.2 F Pulse Rate 123 H 126 H 129 H Respiratory Rate 26 H 22 H Blood Pressure 103/51 L Pulse Oximetry 98 100 Oxygen Delivery Oxygen Flow Rate Fraction of Inspired Oxygen 04/24/25 14:33 04/24/25 14:37 04/24/25 14:45 Temperature Pulse Rate 115 H 118 H 114 H Respiratory Rate 27 H 25 H Blood Pressure 103/51 L Pulse Oximetry 100 100 Oxygen Delivery Oxygen Flow Rate Fraction of Inspired Oxygen 04/24/25 14:57 04/24/25 15:05 04/24/25 15:19 Temperature Pulse Rate 112 H 109 H 65 Respiratory Rate 25 H 25 H Blood Pressure Pulse Oximetry 100 100 Oxygen Delivery Oxygen Flow Rate Fraction of Inspired Oxygen 04/24/25 15:19 04/24/25 15:31 04/24/25 15:31 Temperature Pulse Rate 72 61 63 Respiratory Rate 22 H Blood Pressure 117/62 Pulse Oximetry 100 Oxygen Delivery Oxygen Flow Rate Fraction of Inspired Oxygen 04/24/25 15:32 04/24/25 16:19 04/24/25 18:00 Temperature 98.7 F Pulse Rate 62 95 65 Respiratory Rate 21 H 26 H Blood Pressure 131/70 Pulse Oximetry 100 90 Oxygen Delivery Oxygen Flow Rate Fraction of Inspired Oxygen 04/24/25 19:58 04/24/25 20:00 04/24/25 20:15 Temperature 98.2 F Pulse Rate 65 65 66 Respiratory Rate 18 18 Blood Pressure 126/56 L Pulse Oximetry 100 Oxygen Delivery Oxygen Flow Rate Fraction of Inspired Oxygen 04/24/25 20:15 04/24/25 20:25 04/24/25 20:30 Temperature Pulse Rate 66 69 Respiratory Rate 18 20 Blood Pressure Pulse Oximetry 100 96 Oxygen Delivery Nasal Cannula Nasal Cannula Oxygen Flow Rate 6 2 Fraction of Inspired Oxygen 04/24/25 22:00 04/25/25 00:00 04/25/25 00:40 Temperature 97.8 F Pulse Rate 63 95 69 Respiratory Rate 18 Blood Pressure 120/58 L Pulse Oximetry 100 Oxygen Delivery Oxygen Flow Rate Fraction of Inspired Oxygen 04/25/25 02:00 04/25/25 02:10 04/25/25 02:20 Temperature Pulse Rate 97 95 96 Respiratory Rate 18 Blood Pressure Pulse Oximetry Oxygen Delivery Oxygen Flow Rate Fraction of Inspired Oxygen 04/25/25 02:25 04/25/25 04:00 04/25/25 04:00 Temperature 98.7 F Pulse Rate 95 96 90 Respiratory Rate 18 14 Blood Pressure 107/81 Pulse Oximetry 97 97 Oxygen Delivery Room Air Oxygen Flow Rate Fraction of Inspired Oxygen 21 04/25/25 06:00 04/25/25 08:00 04/25/25 08:30 Temperature 97.7 F Pulse Rate 109 H 115 H 113 H Respiratory Rate 18 Blood Pressure 120/76 Pulse Oximetry 98 Oxygen Delivery Oxygen Flow Rate Fraction of Inspired Oxygen 04/25/25 08:41 04/25/25 09:10 04/25/25 09:10 Temperature Pulse Rate 115 H 113 H 113 H Respiratory Rate 20 20 Blood Pressure Pulse Oximetry 97 Oxygen Delivery Nasal Cannula Oxygen Flow Rate 2 Fraction of Inspired Oxygen 04/25/25 09:21 04/25/25 09:34 Temperature Pulse Rate 112 H 122 H Respiratory Rate 20 20 Blood Pressure Pulse Oximetry 87 L Oxygen Delivery Room Air Oxygen Flow Rate Fraction of Inspired Oxygen Exam Const: General: cooperative, healthy appearing and comfortable Resp: Auscultation: clear to auscultation bilaterally, no crackles, no rales, no rhonchi and no wheezes Cardio: Rate: tachycardic Rhythm: abnormal rhythm Heart sounds: no murmurs Peripheral pulses: dorsalis pedis present GI: GI Palp: No abdominal tenderness and Yes Soft to palpation Neuro: General: oriented to person, oriented to place and oriented to time Extrem: Right lower extremity: no edema Left lower extremity: no edema Results Labs and Meds 04/25/25 04:31 04/25/25 04:31 Lab results: Cardiac Enzymes 04/24/25 04/25/25 Range/Units 09:47 04:31 AST 31 29 (17-59) U/L Coagulation 04/25/25 Range/Units 04:31 PT 18.2 H (11.1-14.7) Seconds APTT 40.7 H (22.3-36.8) Seconds CBC 04/25/25 Range/Units 04:31 WBC 4.8 (4.5-10.0) K/mm3 RBC 3.88 L (4.6-6.20) M/mm3 Hgb 11.5 L (14.0-18.0) g/dL Hct 37.1 L (42.0-52.0) % Plt Count 269 (150-375) k/mm3 Lymph # (Auto) 0.47 L (0.9-3.2) K/mm3 [place] # (Auto) 0.1 (0.1-0.6) K/mm3 Eos # (Auto) 0.0 (0-0.3) K/mm3 Baso # (Auto) 0.0 (0.0-0.1) K/mm3 Comprehensive Metabolic Panel 04/24/25 04/25/25 Range/Units 09:47 04:31 Sodium 135 L 138 (137-145) mmol/L Potassium 4.5 4.4 (3.4-5.0) mmol/L Chloride 98 101 (98-107) mmol/L Carbon Dioxide 30 29 (22-30) mmol/L BUN 21 H 24 H (9-20) mg/dL Creatinine 0.94 0.94 (0.7-1.3) mg/dL Glucose 106 148 H (65-110) mg/dL Calcium 8.4 7.8 L (8.4-10.2) mg/dL AST 31 29 (17-59) U/L ALT 32 27 (6-50) U/L Alkaline Phosphatase 63 55 (38-126) U/L Total Protein 6.7 6.1 L (6.3-8.2) g/dL Albumin 3.5 3.2 L (3.5-5.1) g/dL Intake and Output 04/24/25 04/25/25 04/25/25 23:59 07:59 15:59 Intake Total 240 300 240 Output Total 350 1900 Balance -110 -1600 240 Intake: Oral 240 300 240 Output: Urine 800 Catheter Urine 350 1100 External/Condom 350 1100 Patient Weight 04/25/25 23:59 Weight 76.4 kg
[2025-04-25] MEDS: REMDESIVIR 100 MG/NS 250 ML 100 MG/250 ML BAG 250 MG IVPB (10:28)
[2025-04-25] MEDS: SOTALOL HCL 80 MG TABLET PO ×2 (10:29→20:50)
[2025-04-25 10:42] LABS: Anion Gap 7 mmol/L (4-12); Blood Urea Nitrogen 26 mg/dL (9-20); Calcium 7.9 mg/dL (8.4-10.2); Carbon Dioxide 31 mmol/L (22-30); Chloride 100 mmol/L (98-107); Estimated CRCL calculation 55 ml/min; Estimated Glomerular Filt Rate > 60; Glucose 196 mg/dL (65-110); Magnesium 2.2 mg/dL (1.6-2.3); Potassium 4.1 mmol/L (3.4-5.0); Sodium 138 mmol/L (137-145)
--- NOTE | 2025-04-25 12:30 | ECG_ITS ---
Test Date: 2025-04-25 12:36:23 Measurements Intervals [place] Rate: 106 P: 0 WI: 0 QRS: -44 QRSD: 115 T: 31 QT: 363 QTc: 483 Interpretive Statements ATRIAL FIBRILLATION RIGHT BUNDLE BRANCH BLOCK ABNORMAL ECG ABNORMAL RHYTHM ECG Compared to ECG 04/25/2025 10:20:16 NO DIFFERENCE Electronically Signed On 04-25-2025 16:25:52 CDT by Kristopher Lora M.D.
[2025-04-25] MEDS: WARFARIN (*PBKC) 3 MG TABLET PO (17:41)
[2025-04-25] MEDS: cefTRIAXone 2 GM in SODIUM CHLORIDE 0.9% IV 100 ML 200 ML IVPB (17:42)
--- NOTE | 2025-04-25 18:31 | PM.IMPN ---
Progress Note: A&P Assessment and Plan (1) COVID: Code(s): U07.1 - COVID-19 Status: Acute Assessment and Plan: - symptom onset: 04/23 - tested positive for COVID on: 04/24 - complicating comorbidities: COPD - CXR: No acute cardiopulmonary findings. - Remdesivir 200 mg IVPB x1 then 100 mg x4 for 5 total doses. - if patient develops hypoxia, add dexamethasone 6 mg x10 days or until d/c. - continue patient's anticoagulation - supportive care: DuoNebs p.r.n., Tylenol p.r.n., Tessalon Perles p.r.n., Mucinex flaquito - reporting diarrhea with recent admission, check c.diff. may be symptom of COVID. Will give IV fluids at 100 mL/hr x1L to prevent MUNIR and monitor renal function. - PT/OT for prevention of deconditioning due to [id number] hospitalizations - monitor VS/O2 - monitor daily labs, check CRP (2) Paroxysmal atrial fibrillation: Code(s): I48.0 - Paroxysmal atrial fibrillation Status: Chronic Assessment and Plan: - initial EKG showed NSR - patient went into AFib RVR in the ED, rate in the 130s. Patient did not take his metoprolol dose this morning, will give oral dose now. - continue home medication(s): Metoprolol ER 25 mg daily, warfarin (3) Essential (primary) hypertension: Code(s): I10 - Essential (primary) hypertension Status: Chronic Assessment and Plan: - chronic, currently 158/80 - continue home medications: Lisinopril, metoprolol - monitor Plan patient presented with weakness and shortness of breath is positivef for COVID is being treated with remdesivir and methyl prednisone, patient with PAF went into Afib RVR, seen by his puppy walker suspect 2/2 COVID and started the patient on sotalol and rate is trending down, patient clinical symptoms are improving, he is sitting in the chair and feeling better. his family is present in the room and gave updates. Diet: heart healthy GI Prophylaxis: n/a DVT Prophylaxis: Warfarin IV fluids: LR 100 mL/hour x1 L Lines/Tubes: Peripheral IV Code Status: full code Subjective Date/time seen: 04/25/25 18:31 Interval history: Diarrhea, Weakness H&P-Narrative: 84 y/o M with PMH of PH, abdominal aneurysm, gout, rhabdomyolysis, and hypertension presents here with diarrhea and generalized weakness. The patient was recently admitted to [facility] from [id number] for a suspected UTI, MUNIR, and rhabdomyolysis. He was treated with IV fluids and 3 days of Rocephin. Since discharge home he has felt intermittently weak, more so in the afternoon. Patient then developed diarrhea and generalized weakness starting last night on 04/23. He reports he was so profoundly weak he was unable to get up to go to the bathroom last night and unable to get up and get around for his normal activities this morning. He denies associated chest pain, fever, chills, body aches, nausea, or vomiting. Initial VS at presentation: 99? F, HR 88, R 18, 158/74, and 96% on RA. ED workup showed: No leukocytosis, hemoglobin 11.7 (similar to previous (, no significant electrolyte derangements, creatinine 0.94 and GFR >60, UA showed trace leuk esterase otherwise unremarkable. Patient tested positive for COVID on 04/24. CXR showed no acute cardiopulmonary findings. EKG showed sinus rhythm, right bundle branch block, left anterior fascicular block, rate 87. patient presented with weakness and shortness of breath is positivef for COVID is being treated with remdesivir and methyl prednisone, patient with PAF went into Afib RVR, seen by his puppy walker suspect 2/2 COVID and started the patient on sotalol and rate is trending down, patient clinical symptoms are improving, he is sitting in the chair and feeling better. his family is present in the room and gave updates. Review of Systems Review of Systems: All systems reviewed & are unremarkable except as noted in HPI and below Exam Narrative: Patient is comfortable, NAD HEENT: eyes are clear and none icteric LUNGS:CTA HEART: RR S1S2 ABD: BS+, Soft and nontender Lower extremities: no edema SKIN: nonjaundiced Neuro: grossly intact. Objective Data Vital Signs Vital Signs: Vital Signs - 24 hr 04/24/25 19:58 04/24/25 20:00 04/24/25 20:15 Temperature 36.8 C Pulse Rate 65 65 66 Respiratory Rate 18 18 Blood Pressure 126/56 L Pulse Oximetry 100 Oxygen Delivery Oxygen Flow Rate Fraction of Inspired Oxygen 04/24/25 20:15 04/24/25 20:25 04/24/25 20:30 Temperature Pulse Rate 66 69 Respiratory Rate 18 20 Blood Pressure Pulse Oximetry 100 96 Oxygen Delivery Nasal Cannula Nasal Cannula Oxygen Flow Rate 6 2 Fraction of Inspired Oxygen 04/24/25 22:00 04/25/25 00:00 04/25/25 00:40 Temperature 36.6 C Pulse Rate 63 95 69 Respiratory Rate 18 Blood Pressure 120/58 L Pulse Oximetry 100 Oxygen Delivery Oxygen Flow Rate Fraction of Inspired Oxygen 04/25/25 02:00 04/25/25 02:10 04/25/25 02:20 Temperature Pulse Rate 97 95 96 Respiratory Rate 18 Blood Pressure Pulse Oximetry Oxygen Delivery Oxygen Flow Rate Fraction of Inspired Oxygen 04/25/25 02:25 04/25/25 04:00 04/25/25 04:00 Temperature 37.1 C Pulse Rate 95 96 90 Respiratory Rate 18 14 Blood Pressure 107/81 Pulse Oximetry 97 97 Oxygen Delivery Room Air Oxygen Flow Rate Fraction of Inspired Oxygen 21 04/25/25 06:00 04/25/25 08:00 04/25/25 08:30 Temperature 36.5 C Pulse Rate 109 H 115 H 113 H Respiratory Rate 18 Blood Pressure 120/76 Pulse Oximetry 98 Oxygen Delivery Oxygen Flow Rate Fraction of Inspired Oxygen 04/25/25 08:41 04/25/25 09:10 04/25/25 09:10 Temperature Pulse Rate 115 H 113 H 113 H Respiratory Rate 20 20 Blood Pressure Pulse Oximetry 97 Oxygen Delivery Nasal Cannula Oxygen Flow Rate 2 Fraction of Inspired Oxygen 04/25/25 09:21 04/25/25 09:34 04/25/25 10:29 Temperature Pulse Rate 112 H 122 H 122 H Respiratory Rate 20 20 Blood Pressure Pulse Oximetry 87 L Oxygen Delivery Room Air Oxygen Flow Rate Fraction of Inspired Oxygen 04/25/25 10:44 04/25/25 10:44 04/25/25 11:49 Temperature 37.1 C Pulse Rate 117 H 117 H 110 H Respiratory Rate 20 24 H Blood Pressure 125/78 Pulse Oximetry 93 96 Oxygen Delivery Nasal Cannula Oxygen Flow Rate 2 Fraction of Inspired Oxygen 04/25/25 12:03 04/25/25 12:15 04/25/25 12:15 Temperature Pulse Rate 112 H 112 H Respiratory Rate Blood Pressure Pulse Oximetry 96 Oxygen Delivery Nasal Cannula Nasal Cannula Oxygen Flow Rate 2 2 Fraction of Inspired Oxygen 04/25/25 14:00 04/25/25 14:47 04/25/25 14:47 Temperature Pulse Rate 82 87 87 Respiratory Rate 20 20 Blood Pressure Pulse Oximetry 96 Oxygen Delivery Nasal Cannula Oxygen Flow Rate 2 Fraction of Inspired Oxygen 04/25/25 15:04 04/25/25 16:00 04/25/25 16:35 Temperature 36.4 C Pulse Rate 98 88 88 Respiratory Rate 20 18 Blood Pressure 130/79 Pulse Oximetry 96 96 Oxygen Delivery Nasal Cannula Oxygen Flow Rate 2 Fraction of Inspired Oxygen 04/25/25 16:35 04/25/25 18:00 Temperature Pulse Rate 88 97 Respiratory Rate Blood Pressure Pulse Oximetry Oxygen Delivery Oxygen Flow Rate Fraction of Inspired Oxygen Intake/Output Intake/Output: Intake & Output 04/22/25 04/23/25 04/24/25 04/25/25 23:59 23:59 23:59 23:59 Intake Total 1500.0 1770 Output Total 350 2950 Balance 1150.0 -1180 Meds/Results Medications: Active Medications Generic Name Dose Route Start Last Admin Trade Name Freq PRN Reason Stop Dose Admin Acetaminophen 650 mg 04/24/25 13:27 Acetaminophen 325 Mg Tablet PO Q4H PRN Mild Pain (1-3) or Fever Al Hydrox/Mg Hydrox/Simethicone 30 ml 04/24/25 13:27 Mag Hydrox/Al Hydrox/Simeth 30 Ml Udc PO QID PRN Dyspepsia Albuterol 2.5 mg 04/24/25 14:00 04/25/25 14:46 Albuterol Sulfate Neb 2.5 Mg/3 Ml Inh INHALATION 2.5 mg Q6HRT FLAQUITO Administration Albuterol/Ipratropium 3 ml 04/24/25 13:27 Ipratropium 0.5 Mg/Albuterol Sulfate 2.5 Mg Ampul.Neb 3 Ml INHALATION Q6H PRN Shortness Of Breath Or Wheezing Allopurinol 300 mg 04/25/25 21:00 Allopurinol 300 Mg Tablet PO HS FLAQUITO Benzonatate 100 mg 04/24/25 13:27 Benzonatate 100 Mg Capsule PO TID PRN Cough Bisacodyl 5 mg 04/24/25 13:27 Bisacodyl 5 Mg Tablet Ec PO DAILY PRN Constipation Finasteride 5 mg 04/25/25 09:00 04/25/25 08:42 Finasteride 5 Mg Tablet PO 5 mg DAILY [facility] Administration Guaifenesin 600 mg 04/24/25 21:00 04/25/25 08:41 Guaifenesin 12 Hr 600 Mg Tabcr PO 600 mg Q12HR [facility] Administration Remdesivir 100 mg in 250 mls @ 250 mls/hr 04/25/25 10:00 04/25/25 11:30 IVPB 04/28/25 10:59 Infused Q24H [facility] Infusion Ceftriaxone Sodium 2 gm/ 100 mls @ 200 mls/hr 04/25/25 18:00 04/25/25 18:25 Sodium Chloride IVPB Infused Q24H [facility] Infusion Lisinopril 20 mg 04/25/25 21:00 Lisinopril 20 Mg Tablet PO HS [facility] Methylprednisolone Sodium Succinate 60 mg 04/24/25 18:00 04/25/25 17:41 Methylprednisolone Sod Succ 125 Mg Vial IV PUSH 60 mg Q6HR [facility] Administration Metoprolol Succinate 25 mg 04/25/25 09:00 04/25/25 09:50 Metoprolol Succinate Ext Rel 25 Mg Tabcr PO Not Given DAILY [facility] Sotalol HCl 80 mg 04/25/25 10:10 04/25/25 10:29 Sotalol Hcl 80 Mg Tablet PO 80 mg Q12HR [facility] Administration Tamsulosin HCl 0.4 mg 04/25/25 09:00 04/25/25 08:42 Tamsulosin Hcl 0.4 Mg Capsule PO 0.4 mg DAILY [facility] Administration Warfarin Sodium 3 mg 04/25/25 17:00 04/25/25 17:41 Warfarin (*Pbkc) 3 Mg Tablet PO 3 mg [id number]@1700 [facility] Administration Warfarin Sodium 4 mg 04/26/25 17:00 Warfarin (*Pbkc) 4 Mg Tablet PO [id number]@1700 [facility] Radiology Results: ITS Impressions Chest X-Ray 04/24/25 10:18 IMPRESSION: 1. No acute cardiopulmonary findings. Labs Labs: Laboratory Results - last 24 hr 04/25/25 04/25/25 04:31 10:28 WBC 4.8 RBC 3.88 L Hgb 11.5 L Hct 37.1 L MCV 95.6 MCH 29.6 MCHC 31.0 L RDW 15.6 H Plt Count 269 MPV 8.8 Immature Gran % (Auto) 0.8 H Neut % (Auto) 87.6 H Lymph % (Auto) 9.[address] [place] % (Auto) 1.7 L Eos % (Auto) 0.0 Baso % (Auto) 0.2 Lymph # (Auto) 0.[address] [place] # (Auto) 0.1 Eos # (Auto) 0.0 Baso # (Auto) 0.0 Abs Immat Gran (auto) 0.04 H Absolute Neuts (auto) 4.2 Absolute Nucleated RBC 0.000 Nucleated RBC % 0.0 PT 18.2 H INR 1.5 APTT 40.7 H Sodium 138 138 Potassium 4.4 4.1 Chloride 101 100 Carbon Dioxide 29 31 H Anion Gap 8 7 BUN 24 H 26 H Creatinine 0.94 0.87 Estim Creat Clear Calc 51 55 Estimated GFR > 60 > 60 Glucose 148 H 196 H Calcium 7.8 L 7.9 L Magnesium 2.2 Total Bilirubin 0.6 AST 29 ALT 27 Alkaline Phosphatase 55 C-Reactive Protein 5.0 H Total Protein 6.1 L Albumin 3.2 L Quality VTE Prophylaxis VTE prophylaxis: pharmacologic ordered
--- NOTE | 2025-04-25 23:00 | ECG_ITS ---
Test Date: 2025-04-25 23:10:14 Measurements Intervals [place] Rate: 94 P: 0 [place]: 0 QRS: -59 QRSD: 121 T: 55 QT: 390 QTc: 489 Interpretive Statements ATRIAL FIBRILLATION RIGHT BUNDLE BRANCH BLOCK [120+ ms QRS DURATION, UPRIGHT V1, 40+ ms S IN I/aVL/V4/V5/V6] LEFT ANTERIOR FASCICULAR BLOCK [QRS AXIS <= -45, QR IN I, RS IN II] WARNING: DATA QUALITY MAY AFFECT INTERPRETATION Compared to ECG 04/25/2025 12:36:23 Left anterior fascicular block now present Electronically Signed On 04-26-2025 11:06:11 CDT by Cesario Gao M.D.
[2025-04-26] VITALS (25 sets, daily range): BP systolic 119–157; BP diastolic 71–94; PULSE 76–99; RESP 16–20; TEMP 36.5–36.9; O2SAT 91–98
[2025-04-26] MEDS: ALBUTEROL SULFATE NEB 2.5 MG/3 ML INH INHALATION ×3 (02:15→21:01)
[2025-04-26 04:16] LABS: INR 1.5; Prothrombin Time 17.9 Seconds (11.1-14.7)
[2025-04-26 04:22] LABS: Anion Gap 4 mmol/L (4-12); Blood Urea Nitrogen 31 mg/dL (9-20); Calcium 7.8 mg/dL (8.4-10.2); Carbon Dioxide 29 mmol/L (22-30); Chloride 102 mmol/L (98-107); Estimated CRCL calculation 56 ml/min; Estimated Glomerular Filt Rate > 60; Glucose 157 mg/dL (65-110); Magnesium 2.2 mg/dL (1.6-2.3); Potassium 4.1 mmol/L (3.4-5.0); Sodium 135 mmol/L (137-145)
--- NOTE | 2025-04-26 07:32 | P.PNCA_ITS ---
Progress Note: A&P Assessment and Plan (1) Paroxysmal atrial fibrillation: Code(s): I48.0 - Paroxysmal atrial fibrillation Status: Chronic Assessment and Plan: [id number]. He has it off and on and more so now due to covid infection. Started 04/25/25 Sotalol loading as per protocol checking EKG after each dose. On wafarin with goal INR 2-3. (2) Essential (primary) hypertension: Code(s): I10 - Essential (primary) hypertension Status: Chronic Assessment and Plan: Stable. (3) Abdominal aneurysm: Code(s): I71.40 - Abdominal aortic aneurysm, without rupture, unspecified Status: Acute Assessment and Plan: Stable. (4) COVID: Code(s): U07.1 - COVID-19 Status: Acute Assessment and Plan: Treatment as per hospitalist. Subjective Date/time seen: 04/26/25 07:32 Interval history: Denies chest pain or sob. Feels weak. Exam Const: General: cooperative, healthy appearing and comfortable Orientation/consciousness: oriented to person, oriented to place and oriented to time Resp: Auscultation: clear to auscultation bilaterally, no crackles, no rales, no rhonchi and no wheezes Cardio: Rate: regular rate Rhythm: abnormal rhythm Heart sounds: no murmurs Peripheral pulses: dorsalis pedis present Neuro: General: oriented to person, oriented to place and oriented to time Extrem: Right lower extremity: no edema Left lower extremity: no edema Objective Data Vital Signs Vital Signs: Vital Signs - 24 hr 04/25/25 08:00 04/25/25 08:30 04/25/25 08:41 Temperature 97.7 F Pulse Rate 115 H 113 H 115 H Respiratory Rate 18 Blood Pressure 120/76 Pulse Oximetry 98 Oxygen Delivery Oxygen Flow Rate 04/25/25 09:10 04/25/25 09:10 04/25/25 09:21 Temperature Pulse Rate 113 H 113 H 112 H Respiratory Rate 20 20 20 Blood Pressure Pulse Oximetry 97 Oxygen Delivery Nasal Cannula Oxygen Flow Rate 2 04/25/25 09:34 04/25/25 10:29 04/25/25 10:44 Temperature Pulse Rate 122 H 122 H 117 H Respiratory Rate 20 Blood Pressure Pulse Oximetry 87 L Oxygen Delivery Room Air Oxygen Flow Rate 04/25/25 10:44 04/25/25 11:49 04/25/25 12:03 Temperature 98.8 F Pulse Rate 117 H 110 H Respiratory Rate 20 24 H Blood Pressure 125/78 Pulse Oximetry 93 96 Oxygen Delivery Nasal Cannula Nasal Cannula Oxygen Flow Rate 2 2 04/25/25 12:15 04/25/25 12:15 04/25/25 14:00 Temperature Pulse Rate 112 H 112 H 82 Respiratory Rate Blood Pressure Pulse Oximetry 96 Oxygen Delivery Nasal Cannula Oxygen Flow Rate 2 04/25/25 14:47 04/25/25 14:47 04/25/25 15:04 Temperature Pulse Rate 87 87 98 Respiratory Rate 20 20 20 Blood Pressure Pulse Oximetry 96 Oxygen Delivery Nasal Cannula Oxygen Flow Rate 2 04/25/25 16:00 04/25/25 16:35 04/25/25 16:35 Temperature 97.6 F Pulse Rate 88 88 88 Respiratory Rate 18 Blood Pressure 130/79 Pulse Oximetry 96 96 Oxygen Delivery Nasal Cannula Oxygen Flow Rate 2 04/25/25 18:00 04/25/25 20:00 04/25/25 20:27 Temperature 98.2 F Pulse Rate 97 86 82 Respiratory Rate 15 Blood Pressure 142/80 H Pulse Oximetry 96 Oxygen Delivery Oxygen Flow Rate 04/25/25 20:50 04/25/25 20:58 04/25/25 21:03 Temperature Pulse Rate 99 92 92 Respiratory Rate 20 Blood Pressure Pulse Oximetry 99 Oxygen Delivery Nasal Cannula Oxygen Flow Rate 3 04/25/25 21:10 04/25/25 22:00 04/25/25 23:58 Temperature 97.8 F Pulse Rate 93 92 90 Respiratory Rate 20 16 Blood Pressure 145/87 H Pulse Oximetry 93 Oxygen Delivery Oxygen Flow Rate 04/26/25 00:00 04/26/25 02:00 04/26/25 02:15 Temperature Pulse Rate 86 87 92 Respiratory Rate 20 Blood Pressure Pulse Oximetry Oxygen Delivery Oxygen Flow Rate 04/26/25 02:15 04/26/25 02:24 04/26/25 04:00 Temperature Pulse Rate 92 91 93 Respiratory Rate 20 Blood Pressure Pulse Oximetry 98 Oxygen Delivery Nasal Cannula Oxygen Flow Rate 1 04/26/25 04:15 04/26/25 06:00 Temperature 97.7 F Pulse Rate 92 82 Respiratory Rate 18 Blood Pressure 138/83 Pulse Oximetry 97 Oxygen Delivery Oxygen Flow Rate Intake/Output Intake/Output: Intake & Output 04/23/25 04/24/25 04/25/25 04/26/25 23:59 23:59 23:59 23:59 Intake Total 1500.0 1770 300 Output Total 350 3450 700 Balance 1150.0 -1680 -400 Meds/Results Medications: Active Medications Generic Name Dose Route Start Last Admin Trade Name Freq PRN Reason Stop Dose Admin Acetaminophen 650 mg 04/24/25 13:27 Acetaminophen 325 Mg Tablet PO Q4H PRN Mild Pain (1-3) or Fever Al Hydrox/Mg Hydrox/Simethicone 30 ml 04/24/25 13:27 Mag Hydrox/Al Hydrox/Simeth 30 Ml Udc PO QID PRN Dyspepsia Albuterol 2.5 mg 04/24/25 14:00 04/26/25 02:15 Albuterol Sulfate Neb 2.5 Mg/3 Ml Inh INHALATION 2.5 mg Q6HRT PETEY Administration Albuterol/Ipratropium 3 ml 04/24/25 13:27 Ipratropium 0.5 Mg/Albuterol Sulfate 2.5 Mg Ampul.Neb 3 Ml INHALATION Q6H PRN Shortness Of Breath Or Wheezing Allopurinol 300 mg 04/25/25 21:00 04/25/25 20:50 Allopurinol 300 Mg Tablet PO 300 mg HS PETEY Administration Benzonatate 100 mg 04/24/25 13:27 Benzonatate 100 Mg Capsule PO TID PRN Cough Bisacodyl 5 mg 04/24/25 13:27 Bisacodyl 5 Mg Tablet Ec PO DAILY PRN Constipation Finasteride 5 mg 04/25/25 09:00 04/25/25 08:42 Finasteride 5 Mg Tablet PO 5 mg DAILY PETEY Administration Guaifenesin 600 mg 04/24/25 21:00 04/25/25 20:49 Guaifenesin 12 Hr 600 Mg Tabcr PO 600 mg Q12HR PETEY Administration Remdesivir 100 mg in 250 mls @ 250 mls/hr 04/25/25 10:00 04/25/25 11:30 IVPB 04/28/25 10:59 Infused Q24H PETEY Infusion Ceftriaxone Sodium 2 gm/ 100 mls @ 200 mls/hr 04/25/25 18:00 04/25/25 18:25 Sodium Chloride IVPB Infused Q24H PETEY Infusion Lisinopril 20 mg 04/25/25 21:00 04/25/25 20:50 Lisinopril 20 Mg Tablet PO 20 mg HS PETEY Administration Methylprednisolone Sodium Succinate 60 mg 04/24/25 18:00 04/26/25 05:30 Methylprednisolone Sod Succ 125 Mg Vial IV PUSH 60 mg Q6HR PETEY Administration Metoprolol Succinate 25 mg 04/25/25 09:00 04/25/25 09:50 Metoprolol Succinate Ext Rel 25 Mg Tabcr PO Not Given DAILY [facility] Sotalol HCl 80 mg 04/25/25 10:10 04/25/25 20:50 Sotalol Hcl 80 Mg Tablet PO 80 mg Q12HR [facility] Administration Tamsulosin HCl 0.4 mg 04/25/25 09:00 04/25/25 08:42 Tamsulosin Hcl 0.4 Mg Capsule PO 0.4 mg DAILY [facility] Administration Warfarin Sodium 3 mg 04/25/25 17:00 04/25/25 17:41 Warfarin (*Pbkc) 3 Mg Tablet PO 3 mg MoWeFr@1700 [facility] Administration Warfarin Sodium 4 mg 04/26/25 17:00 Warfarin (*Pbkc) 4 Mg Tablet PO SuTuThSa@1700 [facility] Radiology Results: ITS Impressions Chest X-Ray 04/24/25 10:18 IMPRESSION: 1. No acute cardiopulmonary findings. Labs Labs: Laboratory Results - last 24 hr 04/25/25 04/26/25 10:28 03:57 PT 17.9 H INR 1.5 Sodium 138 135 L Potassium 4.1 4.1 Chloride 100 102 Carbon Dioxide 31 H 29 Anion Gap 7 4 BUN 26 H 31 H Creatinine 0.87 0.85 Estim Creat Clear Calc 55 56 Estimated GFR > 60 > 60 Glucose 196 H 157 H Calcium 7.9 L 7.8 L Magnesium 2.2 2.2
[2025-04-26] MEDS: METOPROLOL SUCCINATE EXT REL 25 MG TABCR PO (09:46)
[2025-04-26] MEDS: REMDESIVIR 100 MG/NS 250 ML 100 MG/250 ML BAG 250 MG IVPB (09:46)
[2025-04-26] MEDS: TAMSULOSIN HCL 0.4 MG CAPSULE PO (09:46)
[2025-04-26] MEDS: guaiFENesin 12 HR 600 MG TABCR PO ×2 (09:46→21:13)
[2025-04-26] MEDS: FINASTERIDE 5 MG TABLET PO (09:46)
[2025-04-26] MEDS: SOTALOL HCL 80 MG TABLET PO ×2 (09:47→21:13)
--- NOTE | 2025-04-26 12:00 | ECG_ITS ---
Test Date: 2025-04-26 11:58:11 Measurements Intervals [place] Rate: 87 P: 0 NM: 0 QRS: -27 QRSD: 123 T: 37 QT: 424 QTc: 513 Interpretive Statements ATRIAL FIBRILLATION BORDERLINE LEFT AXIS DEVIATION [QRS AXIS < -20] RIGHT BUNDLE BRANCH BLOCK [120+ ms QRS DURATION, UPRIGHT V1, 40+ ms S IN I/aVL/V4/V5/V6] Compared to ECG 04/25/2025 23:10:14 Left anterior fascicular block no longer present Electronically Signed On 04-26-2025 12:18:51 CDT by Cesario Gao M.D.
--- NOTE | 2025-04-26 14:05 | PC.NURSE ---
This RN spoke with Dr. Arguello regarding prolonged QTc on this AM EKG. QTc 513, previous EKG QTc was 489. New order to continue with the HS dose of Sotalol.
[2025-04-26] MEDS: cefTRIAXone 2 GM in SODIUM CHLORIDE 0.9% IV 100 ML 200 ML IVPB (17:56)
[2025-04-26] MEDS: WARFARIN (*PBKC) 4 MG TABLET PO (18:00)
--- NOTE | 2025-04-26 18:26 | P.PNIM_ITS ---
Progress Note: A&P Assessment and Plan (1) COVID: Code(s): U07.1 - COVID-19 Status: Acute Assessment and Plan: - symptom onset: 04/23 - tested positive for COVID on: 04/24 - complicating comorbidities: COPD - CXR: No acute cardiopulmonary findings. - Remdesivir 200 mg IVPB x1 then 100 mg x4 for 5 total doses. - if patient develops hypoxia, add dexamethasone 6 mg x10 days or until d/c. - continue patient's anticoagulation - supportive care: DuoNebs p.r.n., Tylenol p.r.n., Tessalon Perles p.r.n., Mucinex flaquito - reporting diarrhea with recent admission, check c.diff. may be symptom of COVID. Will give IV fluids at 100 mL/hr x1L to prevent MUNIR and monitor renal function. - PT/OT for prevention of deconditioning due to [id number] hospitalizations - monitor VS/O2 - monitor daily labs, check CRP (2) Paroxysmal atrial fibrillation: Code(s): I48.0 - Paroxysmal atrial fibrillation Status: Chronic Assessment and Plan: - initial EKG showed NSR - patient went into AFib RVR in the ED, rate in the 130s. Patient did not take his metoprolol dose this morning, will give oral dose now. - continue home medication(s): Metoprolol ER 25 mg daily, warfarin (3) Essential (primary) hypertension: Code(s): I10 - Essential (primary) hypertension Status: Chronic Assessment and Plan: - chronic, currently 158/80 - continue home medications: Lisinopril, metoprolol - monitor Plan patient presented with weakness and shortness of breath is positive for COVID is being treated with remdesivir day 3/5 and methyl prednisone, patient with PAF went into Afib RVR, seen by his weighbridge operator suspect 2/2 COVID and started the patient on sotalol and rate is trending down, patient clinical symptoms are improving, patient is off oxygen he is sitting in the bed and feeling better and stonger. his family is present in the room and gave updates. GI Prophylaxis: n/a DVT Prophylaxis: Warfarin IV fluids: LR 100 mL/hour x1 L Lines/Tubes: Peripheral IV Code Status: full code Subjective Date/time seen: 04/26/25 18:26 Interval history: Diarrhea, Weakness H&P-Narrative: 84 y/o M with PMH of PH, abdominal aneurysm, gout, rhabdomyolysis, and hypertension presents here with diarrhea and generalized weakness. The patient was recently admitted to [facility] from [id number] for a suspected UTI, MUNIR, and rhabdomyolysis. He was treated with IV fluids and 3 days of Rocephin. Since discharge home he has felt intermittently weak, more so in the afternoon. Patient then developed diarrhea and generalized weakness starting last night on 04/23. He reports he was so profoundly weak he was unable to get up to go to the bathroom last night and unable to get up and get around for his normal activities this morning. He denies associated chest pain, fever, chills, body aches, nausea, or vomiting. Initial VS at presentation: 99? F, HR 88, R 18, 158/74, and 96% on RA. ED workup showed: No leukocytosis, hemoglobin 11.7 (similar to previous (, no significant electrolyte derangements, creatinine 0.94 and GFR >60, UA showed trace leuk esterase otherwise unremarkable. Patient tested positive for COVID on 04/24. CXR showed no acute cardiopulmonary findings. EKG showed sinus rhythm, right bundle branch block, left anterior fascicular block, rate 87. patient presented with weakness and shortness of breath is positive for COVID is being treated with remdesivir day 3/5 and methyl prednisone, patient with PAF went into Afib RVR, seen by his weighbridge operator suspect 2/2 COVID and started the patient on sotalol and rate is trending down, patient clinical symptoms are improving, patient is off oxygen he is sitting in the bed and feeling better and stonger. his family is present in the room and gave updates. Review of Systems Review of Systems: All systems reviewed & are unremarkable except as noted in HPI and below Exam Narrative: Patient is comfortable, NAD HEENT: eyes are clear and none icteric LUNGS:CTA HEART: RR S1S2 ABD: BS+, Soft and nontender Lower extremities: no edema SKIN: nonjaundiced Neuro: grossly intact. Objective Data Vital Signs Vital Signs: Vital Signs - 24 hr 04/25/25 20:00 04/25/25 20:27 04/25/25 20:50 Temperature 36.8 C Pulse Rate 86 82 99 Respiratory Rate 15 Blood Pressure 142/80 H Pulse Oximetry 96 Oxygen Delivery Oxygen Flow Rate 04/25/25 20:58 04/25/25 21:03 04/25/25 21:10 Temperature Pulse Rate 92 92 93 Respiratory Rate 20 20 Blood Pressure Pulse Oximetry 99 Oxygen Delivery Nasal Cannula Oxygen Flow Rate 3 04/25/25 22:00 04/25/25 23:58 04/26/25 00:00 Temperature 36.6 C Pulse Rate 92 90 86 Respiratory Rate 16 Blood Pressure 145/87 H Pulse Oximetry 93 Oxygen Delivery Oxygen Flow Rate 04/26/25 02:00 04/26/25 02:15 04/26/25 02:15 Temperature Pulse Rate 87 92 92 Respiratory Rate 20 Blood Pressure Pulse Oximetry 98 Oxygen Delivery Nasal Cannula Oxygen Flow Rate 1 04/26/25 02:24 04/26/25 04:00 04/26/25 04:15 Temperature 36.5 C Pulse Rate 91 93 92 Respiratory Rate 20 18 Blood Pressure 138/83 Pulse Oximetry 97 Oxygen Delivery Oxygen Flow Rate 04/26/25 06:00 04/26/25 07:40 04/26/25 07:40 Temperature Pulse Rate 82 90 Respiratory Rate 18 Blood Pressure Pulse Oximetry 98 Oxygen Delivery Nasal Cannula Oxygen Flow Rate 1 04/26/25 08:00 04/26/25 08:00 04/26/25 08:00 Temperature 36.6 C Pulse Rate 90 90 91 Respiratory Rate 20 20 Blood Pressure 157/94 H Pulse Oximetry 98 98 Oxygen Delivery Nasal Cannula Oxygen Flow Rate 1 04/26/25 09:46 04/26/25 09:47 04/26/25 10:00 Temperature Pulse Rate 99 99 Respiratory Rate Blood Pressure Pulse Oximetry 95 Oxygen Delivery Room Air Oxygen Flow Rate 04/26/25 10:00 04/26/25 12:00 04/26/25 12:00 Temperature Pulse Rate 93 99 82 Respiratory Rate 20 Blood Pressure Pulse Oximetry 95 Oxygen Delivery Room Air Oxygen Flow Rate 04/26/25 12:00 04/26/25 14:00 04/26/25 14:15 Temperature 36.8 C Pulse Rate 97 80 87 Respiratory Rate 18 16 Blood Pressure 119/82 Pulse Oximetry 95 Oxygen Delivery Oxygen Flow Rate 04/26/25 14:25 04/26/25 16:00 Temperature 36.7 C Pulse Rate 82 87 Respiratory Rate 16 18 Blood Pressure 121/79 Pulse Oximetry 91 Oxygen Delivery Oxygen Flow Rate Intake/Output Intake/Output: Intake & Output 04/23/25 04/24/25 04/25/25 04/26/25 23:59 23:59 23:59 23:59 Intake Total 1500.0 1770 910 Output Total 350 3450 700 Balance 1150.0 -1680 210 Meds/Results Medications: Active Medications Generic Name Dose Route Start Last Admin Trade Name Freq PRN Reason Stop Dose Admin Acetaminophen 650 mg 04/24/25 13:27 Acetaminophen 325 Mg Tablet PO Q4H PRN Mild Pain (1-3) or Fever Al Hydrox/Mg Hydrox/Simethicone 30 ml 04/24/25 13:27 Mag Hydrox/Al Hydrox/Simeth 30 Ml Udc PO QID PRN Dyspepsia Albuterol 2.5 mg 04/24/25 14:00 04/26/25 07:40 Albuterol Sulfate Neb 2.5 Mg/3 Ml Inh INHALATION 2.5 mg Q6HRT FLAQUITO Administration Albuterol/Ipratropium 3 ml 04/24/25 13:27 Ipratropium 0.5 Mg/Albuterol Sulfate 2.5 Mg Ampul.Neb 3 Ml INHALATION Q6H PRN Shortness Of Breath Or Wheezing Allopurinol 300 mg 04/25/25 21:00 04/25/25 20:50 Allopurinol 300 Mg Tablet PO 300 mg HS FLAQUITO Administration Benzonatate 100 mg 04/24/25 13:27 Benzonatate 100 Mg Capsule PO TID PRN Cough Bisacodyl 5 mg 04/24/25 13:27 Bisacodyl 5 Mg Tablet Ec PO DAILY PRN Constipation Finasteride 5 mg 04/25/25 09:00 04/26/25 09:46 Finasteride 5 Mg Tablet PO 5 mg DAILY [facility] Administration Guaifenesin 600 mg 04/24/25 21:00 04/26/25 09:46 Guaifenesin 12 Hr 600 Mg Tabcr PO 600 mg Q12HR [facility] Administration Remdesivir 100 mg in 250 mls @ 250 mls/hr 04/25/25 10:00 04/26/25 18:06 IVPB 04/28/25 10:59 Infused Q24H [facility] Infusion Ceftriaxone Sodium 2 gm/ 100 mls @ 200 mls/hr 04/25/25 18:00 04/26/25 17:56 Sodium Chloride IVPB 200 mls/hr Q24H [facility] Administration Lisinopril 20 mg 04/25/25 21:00 04/25/25 20:50 Lisinopril 20 Mg Tablet PO 20 mg HS [facility] Administration Methylprednisolone Sodium Succinate 60 mg 04/24/25 18:00 04/26/25 17:56 Methylprednisolone Sod Succ 125 Mg Vial IV PUSH 60 mg Q6HR [facility] Administration Metoprolol Succinate 25 mg 04/25/25 09:00 04/26/25 09:46 Metoprolol Succinate Ext Rel 25 Mg Tabcr PO 25 mg DAILY [facility] Administration Sotalol HCl 80 mg 04/25/25 10:10 04/26/25 09:47 Sotalol Hcl 80 Mg Tablet PO 80 mg Q12HR [facility] Administration Tamsulosin HCl 0.4 mg 04/25/25 09:00 04/26/25 09:46 Tamsulosin Hcl 0.4 Mg Capsule PO 0.4 mg DAILY [facility] Administration Warfarin Sodium 3 mg 04/25/25 17:00 04/25/25 17:41 Warfarin (*Pbkc) 3 Mg Tablet PO 3 mg MoWeFr@1700 [facility] Administration Warfarin Sodium 4 mg 04/26/25 17:00 04/26/25 18:00 Warfarin (*Pbkc) 4 Mg Tablet PO 4 mg SuTuThSa@1700 [facility] Administration Radiology Results: ITS Impressions Chest X-Ray 04/24/25 10:18 IMPRESSION: 1. No acute cardiopulmonary findings. Labs Labs: Laboratory Results - last 24 hr 04/26/25 03:57 PT 17.9 H INR 1.5 Sodium 135 L Potassium 4.1 Chloride 102 Carbon Dioxide 29 Anion Gap 4 BUN 31 H Creatinine 0.85 Estim Creat Clear Calc 56 Estimated GFR > 60 Glucose 157 H Calcium 7.8 L Magnesium 2.2 Quality VTE Prophylaxis VTE prophylaxis: pharmacologic ordered
[2025-04-27] VITALS (17 sets, daily range): BP systolic 128–140; BP diastolic 80–84; PULSE 54–102; RESP 16–22; TEMP 36.8–37.2; O2SAT 92
--- NOTE | 2025-04-27 02:40 | ECG_ITS ---
Test Date: 2025-04-27 02:40:21 Measurements Intervals [place] Rate: 76 P: 0 LA: 0 QRS: 0 QRSD: 108 T: 33 QT: 421 QTc: 476 Interpretive Statements ATRIAL FIBRILLATION INDETERMINATE AXIS ABNORMAL RHYTHM ECG Compared to ECG 04/26/2025 11:58:11 Indeterminate axis now present Right bundle-branch block no longer present Electronically Signed On 04-27-2025 15:33:00 CDT by Cesario Gao M.D.
[2025-04-27] MEDS: ALBUTEROL SULFATE NEB 2.5 MG/3 ML INH INHALATION ×4 (02:53→14:10)
[2025-04-27 04:59] LABS: Anion Gap 4 mmol/L (4-12); Blood Urea Nitrogen 35 mg/dL (9-20); Calcium 7.9 mg/dL (8.4-10.2); Carbon Dioxide 30 mmol/L (22-30); Chloride 101 mmol/L (98-107); Estimated CRCL calculation 56 ml/min; Estimated Glomerular Filt Rate > 60; Glucose 129 mg/dL (65-110); INR 1.8; Magnesium 2.2 mg/dL (1.6-2.3); Potassium 4.2 mmol/L (3.4-5.0); Prothrombin Time 20.6 Seconds (11.1-14.7); Sodium 135 mmol/L (137-145)
--- NOTE | 2025-04-27 07:47 | PM.PNCARD ---
Progress Note: A&P Assessment and Plan (1) Paroxysmal atrial fibrillation: Code(s): I48.0 - Paroxysmal atrial fibrillation Status: Chronic Assessment and Plan: In atrial fibrillation. [id number] 4. He has it off and on and more so now due to covid infection. Started 04/25/25 Sotalol loading as per protocol checking EKG after each dose. On wafarin with goal INR 2-3. After 5 doses which is this morning dose then no need to check EKG as he is tolerating Sotalol dose. Continue Sotalol and Metoprolol (for rate control until he cardioverts). Will sign off, please call with any questions. Dr. Rasmussen with [facility] will cover me from 04/28/25-04/30/25. (2) Essential (primary) hypertension: Code(s): I10 - Essential (primary) hypertension Status: Chronic Assessment and Plan: Stable. (3) Abdominal aneurysm: Code(s): I71.40 - Abdominal aortic aneurysm, without rupture, unspecified Status: Acute Assessment and Plan: Stable. (4) COVID: Code(s): U07.1 - COVID-19 Status: Acute Assessment and Plan: Treatment as per hospitalist. Subjective Date/time seen: 04/27/25 07:47 Interval history: Denies chest pain or sob. Feels OK this morning no longer weak. Exam Const: General: cooperative, healthy appearing and comfortable Orientation/consciousness: oriented to person, oriented to place and oriented to time Resp: Auscultation: clear to auscultation bilaterally, no crackles, no rales, no rhonchi and no wheezes Cardio: Rate: regular rate and tachycardic Rhythm: abnormal rhythm Heart sounds: no murmurs Peripheral pulses: dorsalis pedis present Neuro: General: oriented to person, oriented to place and oriented to time Extrem: Right lower extremity: no edema Left lower extremity: no edema Objective Data Vital Signs Vital Signs: Vital Signs - 24 hr 04/26/25 08:00 04/26/25 08:00 04/26/25 08:00 Temperature 98 F Pulse Rate 90 90 91 Respiratory Rate 20 20 Blood Pressure 157/94 H Pulse Oximetry 98 98 Oxygen Delivery Nasal Cannula Oxygen Flow Rate 1 04/26/25 09:46 04/26/25 09:47 04/26/25 10:00 Temperature Pulse Rate 99 99 Respiratory Rate Blood Pressure Pulse Oximetry 95 Oxygen Delivery Room Air Oxygen Flow Rate 04/26/25 10:00 04/26/25 12:00 04/26/25 12:00 Temperature Pulse Rate 93 99 82 Respiratory Rate 20 Blood Pressure Pulse Oximetry 95 Oxygen Delivery Room Air Oxygen Flow Rate 04/26/25 12:00 04/26/25 14:00 04/26/25 14:15 Temperature 98.2 F Pulse Rate 97 80 87 Respiratory Rate 18 16 Blood Pressure 119/82 Pulse Oximetry 95 Oxygen Delivery Oxygen Flow Rate 04/26/25 14:25 04/26/25 16:00 04/26/25 16:00 Temperature 98.1 F Pulse Rate 82 87 87 Respiratory Rate 16 18 18 Blood Pressure 121/79 Pulse Oximetry 91 91 Oxygen Delivery Room Air Oxygen Flow Rate 04/26/25 16:00 04/26/25 18:00 04/26/25 20:00 Temperature 98.2 F Pulse Rate 91 91 79 Respiratory Rate 18 Blood Pressure 147/93 H Pulse Oximetry 97 Oxygen Delivery Oxygen Flow Rate 04/26/25 20:00 04/26/25 21:02 04/26/25 21:03 Temperature Pulse Rate 88 84 Respiratory Rate 16 Blood Pressure Pulse Oximetry 96 Oxygen Delivery Room Air Oxygen Flow Rate 04/26/25 21:13 04/26/25 21:14 04/26/25 22:00 Temperature Pulse Rate 92 86 84 Respiratory Rate 16 Blood Pressure Pulse Oximetry Oxygen Delivery Oxygen Flow Rate 04/26/25 23:31 04/27/25 00:00 04/27/25 02:00 Temperature 98.5 F Pulse Rate 76 64 69 Respiratory Rate 17 Blood Pressure 129/71 Pulse Oximetry 93 Oxygen Delivery Oxygen Flow Rate 04/27/25 02:54 04/27/25 03:02 04/27/25 04:00 Temperature 98.2 F Pulse Rate 80 83 77 Respiratory Rate 16 16 17 Blood Pressure 128/81 Pulse Oximetry 92 Oxygen Delivery Oxygen Flow Rate 04/27/25 04:00 04/27/25 06:00 Temperature Pulse Rate 77 67 Respiratory Rate Blood Pressure Pulse Oximetry Oxygen Delivery Oxygen Flow Rate Intake/Output Intake/Output: Intake & Output 04/24/25 04/25/25 04/26/25 04/27/25 23:59 23:59 23:59 23:59 Intake Total 1500.0 1770 910 Output Total 350 3450 700 850 Balance 1150.0 -1680 210 -850 Meds/Results Medications: Active Medications Generic Name Dose Route Start Last Admin Trade Name Freq PRN Reason Stop Dose Admin Acetaminophen 650 mg 04/24/25 13:27 Acetaminophen 325 Mg Tablet PO Q4H PRN Mild Pain (1-3) or Fever Al Hydrox/Mg Hydrox/Simethicone 30 ml 04/24/25 13:27 Mag Hydrox/Al Hydrox/Simeth 30 Ml Udc PO QID PRN Dyspepsia Albuterol 2.5 mg 04/24/25 14:00 04/27/25 02:53 Albuterol Sulfate Neb 2.5 Mg/3 Ml Inh INHALATION 2.5 mg Q6HRT PETEY Administration Albuterol/Ipratropium 3 ml 04/24/25 13:27 Ipratropium 0.5 Mg/Albuterol Sulfate 2.5 Mg Ampul.Neb 3 Ml INHALATION Q6H PRN Shortness Of Breath Or Wheezing Allopurinol 300 mg 04/25/25 21:00 04/26/25 21:13 Allopurinol 300 Mg Tablet PO 300 mg HS [facility]EY Administration Benzonatate 100 mg 04/24/25 13:27 Benzonatate 100 Mg Capsule PO TID PRN Cough Bisacodyl 5 mg 04/24/25 13:27 Bisacodyl 5 Mg Tablet Ec PO DAILY PRN Constipation Finasteride 5 mg 04/25/25 09:00 04/26/25 09:46 Finasteride 5 Mg Tablet PO 5 mg DAILY [facility] Administration Guaifenesin 600 mg 04/24/25 21:00 04/26/25 21:13 Guaifenesin 12 Hr 600 Mg Tabcr PO 600 mg Q12HR [facility] Administration Remdesivir 100 mg in 250 mls @ 250 mls/hr 04/25/25 10:00 04/26/25 18:06 IVPB 04/28/25 10:59 Infused Q24H [facility] Infusion Ceftriaxone Sodium 2 gm/ 100 mls @ 200 mls/hr 04/25/25 18:00 04/26/25 17:56 Sodium Chloride IVPB 200 mls/hr Q24H [facility] Administration Lisinopril 20 mg 04/25/25 21:00 04/26/25 21:13 Lisinopril 20 Mg Tablet PO 20 mg HS [facility] Administration Methylprednisolone Sodium Succinate 60 mg 04/24/25 18:00 04/27/25 06:05 Methylprednisolone Sod Succ 125 Mg Vial IV PUSH 60 mg Q6HR [facility] Administration Metoprolol Succinate 25 mg 04/25/25 09:00 04/26/25 09:46 Metoprolol Succinate Ext Rel 25 Mg Tabcr PO 25 mg DAILY [facility] Administration Sotalol HCl 80 mg 04/25/25 10:10 04/26/25 21:13 Sotalol Hcl 80 Mg Tablet PO 80 mg Q12HR [facility] Administration Tamsulosin HCl 0.4 mg 04/25/25 09:00 04/26/25 09:46 Tamsulosin Hcl 0.4 Mg Capsule PO 0.4 mg DAILY [facility] Administration Warfarin Sodium 3 mg 04/25/25 17:00 04/25/25 17:41 Warfarin (*Pbkc) 3 Mg Tablet PO 3 mg MoWeFr@1700 [facility] Administration Warfarin Sodium 4 mg 04/26/25 17:00 04/26/25 18:00 Warfarin (*Pbkc) 4 Mg Tablet PO 4 mg SuTuThSa@1700 [facility] Administration Radiology Results: ITS Impressions Chest X-Ray 04/24/25 10:18 IMPRESSION: 1. No acute cardiopulmonary findings. Labs Labs: Laboratory Results - last 24 hr 04/27/25 04:28 PT 20.6 H INR 1.8 Sodium 135 L Potassium 4.2 Chloride 101 Carbon Dioxide 30 Anion Gap 4 BUN 35 H Creatinine 0.85 Estim Creat Clear Calc 56 Estimated GFR > 60 Glucose 129 H Calcium 7.9 L Magnesium 2.2
[2025-04-27 08:14] LABS: Alanine Aminotransferase 58 U/L (6-50); Albumin Level 2.7 g/dL (3.5-5.1); Alkaline Phosphatase 57 U/L (38-126); Aspartate Amino Transferase 50 U/L (17-59); Bilirubin,Total 0.5 mg/dL (0.2-1.3); Total Protein 5.2 g/dL (6.3-8.2)
[2025-04-27] MEDS: FINASTERIDE 5 MG TABLET PO (09:19)
[2025-04-27] MEDS: REMDESIVIR 100 MG/NS 250 ML 100 MG/250 ML BAG 250 MG IVPB (09:20)
[2025-04-27] MEDS: METOPROLOL SUCCINATE EXT REL 25 MG TABCR PO (09:20)
[2025-04-27] MEDS: guaiFENesin 12 HR 600 MG TABCR PO (09:20)
[2025-04-27] MEDS: SOTALOL HCL 80 MG TABLET PO (09:20)
[2025-04-27] MEDS: TAMSULOSIN HCL 0.4 MG CAPSULE PO (09:20)
--- NOTE | 2025-04-27 11:41 | ECG_ITS ---
Test Date: 2025-04-27 11:49:59 Measurements Intervals [place] Rate: 81 P: 0 MI: 0 QRS: -12 QRSD: 122 T: 26 QT: 419 QTc: 488 Interpretive Statements ATRIAL FIBRILLATION RIGHT BUNDLE-BRANCH BLOCK WARNING: DATA QUALITY MAY AFFECT INTERPRETATION Compared to ECG 04/27/2025 02:40:21 Electronically Signed On 04-27-2025 15:42:42 CDT by Cesario Gao M.D.
--- NOTE | 2025-04-27 14:10 | PM.DS ---
DS: Admitting Diagnosis Discharge Date 04/27/25 Admitting Diagnosis Diarrhea, Weakness DS: Discharge Diagnosis Discharge Diagnosis (1) COVID: Code(s): U07.1 - COVID-19 Status: Acute Assessment and Plan: - symptom onset: 04/23 - tested positive for COVID on: 04/24 - complicating comorbidities: COPD - CXR: No acute cardiopulmonary findings. - Remdesivir 200 mg IVPB x1 then 100 mg x4 for 5 total doses. - if patient develops hypoxia, add dexamethasone 6 mg x10 days or until d/c. - continue patient's anticoagulation - supportive care: DuoNebs p.r.n., Tylenol p.r.n., Tessalon Perles p.r.n., Mucinex flaquito - reporting diarrhea with recent admission, check c.diff. may be symptom of COVID. Will give IV fluids at 100 mL/hr x1L to prevent MUNIR and monitor renal function. - PT/OT for prevention of deconditioning due to [id number] hospitalizations - monitor VS/O2 - monitor daily labs, check CRP (2) Paroxysmal atrial fibrillation: Code(s): I48.0 - Paroxysmal atrial fibrillation Status: Chronic Assessment and Plan: - initial EKG showed NSR - patient went into AFib RVR in the ED, rate in the 130s. Patient did not take his metoprolol dose this morning, will give oral dose now. - continue home medication(s): Metoprolol ER 25 mg daily, warfarin (3) Essential (primary) hypertension: Code(s): I10 - Essential (primary) hypertension Status: Chronic Assessment and Plan: - chronic, currently 158/80 - continue home medications: Lisinopril, metoprolol - monitor Plan patient presented with weakness and shortness of breath is positive for COVID is being treated with remdesivir day 3/5 and methyl prednisone, patient with PAF went into Afib RVR, seen by his cross tie maker suspect 2/2 COVID and started the patient on sotalol and rate is trending down, patient clinical symptoms are improving, patient is off oxygen he is sitting in the bed and feeling better and stonger. his family is present in the room and gave updates. GI Prophylaxis: n/a DVT Prophylaxis: Warfarin IV fluids: LR 100 mL/hour x1 L Lines/Tubes: Peripheral IV Code Status: full code DS: Summary Hospital Course Hospital Course: patient presented with weakness and shortness of breath is positive for COVID is being treated with remdesivir day 3/5 and methyl prednisone, patient with PAF went into Afib RVR, seen by his cross tie maker suspect 2/2 COVID and started the patient on sotalol and rate is trending down, patient clinical symptoms are improving, patient is off oxygen he is sitting in the bed and feeling better and stronger. his family is present in the room and gave updates. Today patient is sitting in the chair on room air, does not have any complaints, patient is tolerating sotalol and his HR is controlled, his cross tie maker has signed off, clinical pharmacist recommends to stop remdesivir and he does not need to continue steroid as outpatient, patient is clinically stable, will discharge home with his family. Time Spent with Patient Time attestation: Total time spent providing and/or coordinating discharge services: Exam Narrative: Patient is comfortable, NAD HEENT: eyes are clear and none icteric LUNGS:CTA HEART: RR S1S2 ABD: BS+, Soft and nontender Lower extremities: no edema SKIN: nonjaundiced Neuro: grossly intact. DS: Data Data Completed and Pending Labs on day of discharge: Labs from last 24 hours 04/27/25 04/27/25 04:28 04:25 PT 20.6 H INR 1.8 Sodium 135 L Potassium 4.2 Chloride 101 Carbon Dioxide 30 Anion Gap 4 BUN 35 H Creatinine 0.85 Estim Creat Clear Calc 56 Estimated GFR > 60 Glucose 129 H Calcium 7.9 L Magnesium 2.2 Total Bilirubin 0.5 Direct Bilirubin 0.0 AST 50 ALT 58 H Alkaline Phosphatase 57 Total Protein 5.2 L Albumin 2.7 L Preliminary micro results at discharge 04/24/25 17:56 Blood Culture - Preliminary Blood 04/24/25 18:59 Blood Culture - Preliminary Blood Discharge Plan Discharge Attending physician on discharge: Mark Feldman Consulting providers: Óscar Arguello Discharging Clinician: Harris Mcgrath Patient Disposition: Home Activity: as tolerated Diet: heart healthy Discharge Instructions: Care Coordination: Patient to have [facility] for PT/OT eval and treat, and half-way. Their phone number is [phone], if you have any questions; they will contact you to schedule their visits. RN Please fax discharge instructions to [phone]. Patient to follow general universal precaution and avoid public gathering, patient to follow up with his cross tie maker and primary care provider as soon as possible, patient is instructed if any symptoms redevelop to go to nearest ER. Patient Instructions: Antibiotic Form, Warfarin (By mouth), Sotalol (By mouth), COVID-19 (Coronavirus Disease 2019) (DC) Patient Language: Azeri Stand Alone Forms: General Discharge Information Follow-up/Referrals: Óscar Arguello DO [Physician, Cardiology] Dony Harkins DO [Primary Care Provider, Internal Medicine] Discharge Medications: New sotalol 80 mg Tablet 80 mg PO Q12HR Qty: 60 0RF benzonatate 100 mg Capsule 100 mg PO TID PRN (Reason: Cough) Qty: 30 0RF bisacodyl [Laxative (bisacodyl)] 5 mg Tablet,Delayed Release (Dr/Ec) 5 mg PO DAILY PRN (Reason: Constipation) Qty: 30 0RF guaifenesin [Mucus Relief ER] 600 mg Tablet Extended Release 12hr 600 mg PO Q12HR Qty: 30 0RF amoxicillin-pot clavulanate [Augmentin] 500-125 mg tablet 1 tablet PO Q8H Qty: 15 0RF Continued acetaminophen [Tylenol Extra Strength] 500 mg tablet 1,000 mg PO .q12 PRN (Reason: pain) Avastin 25 mg/mL solution See Rx Instructions intravitreal .2M Rx Instructions: intravitreal 2M; pt gets outpt center warfarin 4 mg tablet 4 mg PO .COMPLEX Patient Comments: Takes on Wednesday, Wednesday, , Wednesday Rx Instructions: 4 mg orally 4 times per week; lisinopril 20 mg tablet 20 mg PO HS Patient Comments: pt takes at bedtime Rx Instructions: 20 mg orally; metoprolol succinate [Toprol XL] 25 mg tablet extended release 24 hr 25 mg PO DAILY Qty: 90 1RF allopurinol 300 mg tablet 300 mg PO HS Qty: 90 1RF finasteride 5 mg tablet See Rx Instructions .ROUTE .COMPLEX Qty: 30 5RF Dose Instruction: TAKE 1 TABLET BY MOUTH IN THE MORNING Rx Instructions: TAKE 1 TABLET BY MOUTH IN THE MORNING tamsulosin 0.4 mg capsule See Rx Instructions .ROUTE .COMPLEX Qty: 30 5RF Dose Instruction: Take 1 capsule by mouth in the morning Rx Instructions: Take 1 capsule by mouth in the morning warfarin 3 mg tablet See Rx Instructions .ROUTE .COMPLEX Qty: 30 5RF Dose Instruction: Take 1 tablet by mouth once daily Patient Comments: takes this medication Wednesday, Wednesday, Wednesday Rx Instructions: Take 1 tablet by mouth once daily Date of admission: 04/25/25 10:37 Primary Care Provider: Dony Harkins Admitting Provider: Mark Feldman Attending physician on admission: Mark Feldman Condition: Stable
== END 2025-04-27 14:55 | disposition home or self-care (01) | DRG 179 ==
LOC: ANHED 13:16 → ANHIMU 17:13
PROVIDERS: Internal Medicine Cardiovascular Disease; Student in an Organized Health Care Education/Training Program; Admitting Provider Internal Medicine; Emergency Provider Emergency Medicine; PCP Internal Medicine; Visit Provider Family Medicine
DX: U07.1 COVID-19 (principal); I48.0 Paroxysmal atrial fibrillation; I10 Essential (primary) hypertension; I71.40 Abdominal aortic aneurysm, without rupture, unspecified; J44.9 Chronic obstructive pulmonary disease, unspecified; Z79.01 Long term (current) use of anticoagulants; Z96.651 Presence of right artificial knee joint; Z87.891 Personal history of nicotine dependence
CPT/HCPCS: 36415; 71046; 80048; 80053; 80076; 81001; 83735; 83880; 84443; 85025; 85610; 85730; 86140; 87040; 87045; 87046; 87427; 87637; 93005; 94640; 96361; 96365; 96375; 96376; 97110; 97162; 97165; 97530; 99285; A9270; G0378; J0248; J0696; J1163; J2919; J7120

== ENCOUNTER 2025-05-08 10:45 | Outpatient (CLI) | payer MEDICARE, OTHER, SELFPAY ==
[2025-05-08 18:51] LABS: Hematocrit 42.7 % (42.0-52.0); Hemoglobin 13.1 g/dL (14.0-18.0); Immature Granulocyte Percent A 1.1 % (0-0.5); Lymphocytes Absolute Auto 0.75 K/mm3 (0.9-3.2); Mean Corpuscular HGB Conc 30.7 g/dl (32-36); Mean Corpuscular Hemoglobin 30.7 pg (26-34); Mean Corpuscular Volume 100.0 fl (80-100); Nucleated Red Blood Cells Absolute Auto 0.000 K/mm3 (0.0-0.012); Nucleated Red Blood Cells Perc 0.0 % (0.0-0.2); Platelet Count Result 330 k/mm3 (150-375); Red Blood Count 4.27 M/mm3 (4.6-6.20); White Blood Count 15.2 K/mm3 (4.5-10.0)
[2025-05-08 19:05] LABS: Prothrombin Time 52.2 Seconds (11.1-14.7)
[2025-05-08 19:24] LABS: INR 6.2
[2025-05-08 19:36] LABS: Alanine Aminotransferase 34 U/L (6-50); Albumin Level 3.3 g/dL (3.5-5.1); Alkaline Phosphatase 70 U/L (38-126); Anion Gap 3 mmol/L (4-12); Aspartate Amino Transferase 34 U/L (17-59); Bilirubin,Total 1.6 mg/dL (0.2-1.3); Blood Urea Nitrogen 29 mg/dL (9-20); Calcium 8.5 mg/dL (8.4-10.2); Carbon Dioxide 36 mmol/L (22-30); Chloride 99 mmol/L (98-107); Estimated Glomerular Filt Rate > 60; Glucose 82 mg/dL (65-110); Potassium 4.1 mmol/L (3.4-5.0); Sodium 138 mmol/L (137-145); Total Protein 5.9 g/dL (6.3-8.2)
== END 2025-05-08 10:46 | disposition home or self-care (01) ==
LOC: ANHGOSHLAB 10:46
PROVIDERS: PCP Internal Medicine; Visit Provider Clinical Nurse Specialist
DX: I71.40 Abdominal aortic aneurysm, without rupture, unspecified (principal); J44.9 Chronic obstructive pulmonary disease, unspecified; I48.91 Unspecified atrial fibrillation; I10 Essential (primary) hypertension
CPT/HCPCS: 36415; 80053; 85025; 85610

== ENCOUNTER 2025-05-09 10:21 | Outpatient (CLI) | payer MEDICARE, OTHER, SELFPAY ==
[2025-05-09 11:21] LABS: INR 4.2; Prothrombin Time 38.8 Seconds (11.1-14.7)
[2025-05-09 11:37] LABS: MALB Creatinine Ratio 21.2 mg/g (0-30)
== END 2025-05-09 10:22 | disposition home or self-care (01) ==
PROVIDERS: PCP Internal Medicine; Referring Provider Clinical Nurse Specialist; Visit Provider Nurse Practitioner
DX: I48.91 Unspecified atrial fibrillation (principal); R80.9 Proteinuria, unspecified
CPT/HCPCS: 36415; 82043; 85610

== ENCOUNTER 2025-05-18 08:59 | Outpatient (CLI) | payer MEDICARE, OTHER, SELFPAY ==
[2025-05-18 12:54] LABS: Hematocrit 43.1 % (42.0-52.0); Hemoglobin 13.3 g/dL (14.0-18.0); Immature Granulocyte Percent A 0.9 % (0-0.5); Lymphocytes Absolute Auto 1.05 K/mm3 (0.9-3.2); Mean Corpuscular HGB Conc 30.9 g/dl (32-36); Mean Corpuscular Hemoglobin 31.1 pg (26-34); Mean Corpuscular Volume 100.7 fl (80-100); Nucleated Red Blood Cells Absolute Auto 0.000 K/mm3 (0.0-0.012); Nucleated Red Blood Cells Perc 0.0 % (0.0-0.2); Platelet Count Result 115 k/mm3 (150-375); Red Blood Count 4.28 M/mm3 (4.6-6.20); White Blood Count 5.8 K/mm3 (4.5-10.0)
[2025-05-18 13:07] LABS: INR 2.1; Prothrombin Time 23.2 Seconds (11.1-14.7)
[2025-05-18 13:59] LABS: Alanine Aminotransferase 16 U/L (6-50); Albumin Level 3.6 g/dL (3.5-5.1); Alkaline Phosphatase 53 U/L (38-126); Anion Gap 4 mmol/L (4-12); Aspartate Amino Transferase 26 U/L (17-59); Bilirubin,Total 1.8 mg/dL (0.2-1.3); Blood Urea Nitrogen 31 mg/dL (9-20); Calcium 8.3 mg/dL (8.4-10.2); Carbon Dioxide 33 mmol/L (22-30); Chloride 97 mmol/L (98-107); Estimated Glomerular Filt Rate > 60; Glucose 94 mg/dL (65-110); Potassium 4.4 mmol/L (3.4-5.0); Sodium 134 mmol/L (137-145); Total Protein 6.1 g/dL (6.3-8.2)
== END 2025-05-18 09:00 | disposition home or self-care (01) ==
PROVIDERS: Clinical Nurse Specialist; PCP Internal Medicine; Visit Provider Internal Medicine Cardiovascular Disease
DX: I48.91 Unspecified atrial fibrillation (principal); D72.829 Elevated white blood cell count, unspecified
CPT/HCPCS: 36415; 80053; 85025; 85610

== ENCOUNTER 2025-05-21 09:31 | Outpatient (CLI) | payer MEDICARE, OTHER, SELFPAY ==
--- NOTE | ~2025-05-21 | CT_ITS ---
Exam: CT chest with contrast Clinical History: [Chronic obstructive pulmonary disease, unspecified ] Comparison: [ CT chest abdomen and pelvis 10/07/2022] Technique: Multiple axial CT images of the chest with IV contrast. Sagittal and coronal reformatted images were obtained. FINDINGS: Lungs and pleura: [ Tracheobronchial tree is patent. No pneumothorax. No pulmonary mass. No focal pulmonary consolidation. Moderate centrilobular emphysema.] There is a 4 mm pulmonary nodule in the left lower lobe. There are few small reticular and bandlike opacities in the lower lungs likely atelectasis or scarring. There are a few small groundglass opacities in the right mid and lower lung. Mediastinum and pulmonary lisa: [ No mass or adenopathy.] Axillary/intramammary and supraclavicular: [ No mass or adenopathy.] Heart and great vessels: [ Normal heart size.[ [ No pericardial effusion.] [ No aneurysm.] Moderate atherosclerotic disease in the thoracic aorta. Coronary artery calcifications. Chest Wall: [ Unremarkable.] Upper Abdomen: [ No significant findings.] Osseous structures: [ No acute fracture or destructive lesion.] [ Multilevel degenerative change in the visualized spine.] Additional findings: Stable cysts in the right kidney. IMPRESSION: 1. There is a 4 mm pulmonary nodule in the left lower lobe. A chest CT in 6 months is recommended. 2. Moderate emphysema. 3. There are a few small reticular and bandlike opacities in the lower lungs likely atelectasis or scarring. 4. There are a few small groundglass opacities in the right mid and lower lung. Attention on follow-up imaging. Reviewed, dictated and finalized at location Q. IMPRESSION: 1. There is a 4 mm pulmonary nodule in the left lower lobe. A chest CT in 6 mon ths is recommended. 2. Moderate emphysema. 3. There are a few small reticular and bandlike opacities in the lower lungs li kai atelectasis or scarring. 4. There are a few small groundglass opacities in the right mid and lower lung. Attention on follow-up imaging.
== END 2025-05-21 09:32 | disposition home or self-care (01) ==
LOC: ANHIMG 09:32
PROVIDERS: PCP Internal Medicine; Visit Provider Clinical Nurse Specialist
DX: R91.1 Solitary pulmonary nodule (principal); R91.8 Other nonspecific abnormal finding of lung field; J43.9 Emphysema, unspecified; J44.9 Chronic obstructive pulmonary disease, unspecified; R06.09 Other forms of dyspnea; H43.393 Other vitreous opacities, bilateral
CPT/HCPCS: 71260; Q9967

== ENCOUNTER 2025-05-25 09:00 | Outpatient (CLI) | payer MEDICARE, OTHER, SELFPAY ==
[2025-05-25 19:41] LABS: Hematocrit 43.8 % (42.0-52.0); Hemoglobin 13.7 g/dL (14.0-18.0); Immature Granulocyte Percent A 0.6 % (0-0.5); Lymphocytes Absolute Auto 1.37 K/mm3 (0.9-3.2); Mean Corpuscular HGB Conc 31.3 g/dl (32-36); Mean Corpuscular Hemoglobin 31.2 pg (26-34); Mean Corpuscular Volume 99.8 fl (80-100); Nucleated Red Blood Cells Absolute Auto 0.000 K/mm3 (0.0-0.012); Nucleated Red Blood Cells Perc 0.0 % (0.0-0.2); Platelet Count Result 260 k/mm3 (150-375); Red Blood Count 4.39 M/mm3 (4.6-6.20); White Blood Count 5.4 K/mm3 (4.5-10.0)
== END 2025-05-25 09:01 | disposition home or self-care (01) ==
PROVIDERS: PCP Internal Medicine; Visit Provider Clinical Nurse Specialist
DX: D69.6 Thrombocytopenia, unspecified (principal)
CPT/HCPCS: 36415; 85025

== ENCOUNTER 2025-07-17 10:27 | Outpatient (CLI) | payer MEDICARE, OTHER, SELFPAY ==
[2025-07-17 13:06] LABS: Alanine Aminotransferase 14 U/L (6-50); Albumin Level 4.0 g/dL (3.5-5.1); Alkaline Phosphatase 63 U/L (38-126); Anion Gap 3 mmol/L (4-12); Aspartate Amino Transferase 46 U/L (17-59); Bilirubin,Total 0.8 mg/dL (0.2-1.3); Blood Urea Nitrogen 35 mg/dL (9-20); Calcium 9.1 mg/dL (8.4-10.2); Carbon Dioxide 34 mmol/L (22-30); Chloride 104 mmol/L (98-107); Estimated Glomerular Filt Rate > 60; Glucose 85 mg/dL (65-110); Sodium 141 mmol/L (137-145); Total Protein 6.9 g/dL (6.3-8.2)
[2025-07-17 13:15] LABS: Potassium 4.9 mmol/L (3.4-5.0)
== END 2025-07-17 10:28 | disposition home or self-care (01) ==
PROVIDERS: PCP Internal Medicine; Visit Provider Internal Medicine
DX: E80.6 Other disorders of bilirubin metabolism (principal); E87.1 Hypo-osmolality and hyponatremia
CPT/HCPCS: 36415; 80053